=== PATIENT | female | born 1950 | race African-American/Black ===

== ENCOUNTER 2022-06-07 08:35 | Outpatient (REF) | payer OTHER, SELFPAY ==
[2022-06-07 09:24] LABS: Hemoglobin 13.6 g/dl (12.0-16.0); Mean Corpuscular Volume 79.4 fL (80.0-98.0); Mean Platelet Volume 11.1 fL (9.4-12.3); Platelet Count 239 X10*3/uL (160-400); Red Blood Count 5.04 X10*6/uL (4.20-5.50); Red Cell Distribution Width 14.9 % (11.0-16.0); White Blood Count 8.8 X10*3/uL (4.8-10.8)
[2022-06-07 09:34] LABS: Estimated Average Glucose 151 mg/dL; Hemoglobin A1c % 6.9 %
[2022-06-07 09:56] LABS: Alanine Aminotransferase 31 U/L (0-31); Albumin Level 4.7 g/dL (3.5-5.0); Alkaline Phosphatase 113 U/L (39-117); Anion Gap 17 (12-20); Aspartate Amino Transferase 21 U/L (5-31); Bilirubin Total 0.8 mg/dL (0.0-1.0); Blood Urea Nitrogen 12 mg/dL (9-16); Carbon Dioxide 25 mmol/L (22-29); Chloride 105 mmol/L (96-108); Cholesterol 309 mg/dL; Estimated Glomerular Filt Rate > 60; Glucose Fasting 176 mg/dL (60-99); HDL Cholesterol 46 mg/dL; LDL Cholesterol Calculated 230 mg/dl; Potassium 4.1 mmol/L (3.3-5.1); Sodium 143 mmol/L (135-145); Total Protein 7.7 g/dL (6.5-8.0); Triglycerides 167 mg/dL
[2022-06-07 09:57] LABS: Creatinine Urine 187.85 mg/dL; Microalbum/Creatinine Ratio Ur 101.1 ug/mg cr
[2022-06-07 10:07] LABS: TSH reflex Free T4 1.27 uIU/mL (0.32-4.0)
== END 2022-06-07 08:36 | disposition home or self-care (01) ==
LOC: HO.LAB 08:35
PROVIDERS: PCP Physician Assistant; Visit Provider Physician Assistant
DX: E78.2 Mixed hyperlipidemia (principal); I10 Essential (primary) hypertension; E11.65 Type 2 diabetes mellitus with hyperglycemia
CPT/HCPCS: 36415; 80053; 80061; 82043; 83036; 84443; 85027

== ENCOUNTER 2023-01-01 09:41 | Outpatient (REF) | payer OTHER, SELFPAY ==
--- NOTE | ~2023-01-01 | XR_ITS ---
EXAMINATION: XR HAND, RIGHT CLINICAL INFORMATION: Pain COMPARISON: None available. TECHNIQUE: Three views of the right hand. FINDINGS: There is persistent flexion of the fourth proximal interphalangeal joint across images, recommend correlation with physical exam. Mild degenerative changes of the proximal and distal interphalangeal joints and moderate degenerative changes of the radial ulnar joint with loss of joint space. No acute fracture or dislocation. Soft tissues are unremarkable. XR/XR hand RT min 3V IMPRESSION: 1. There is persistent flexion of the fourth proximal interphalangeal joint across images, recommend correlation with physical exam. 2. Mild degenerative changes of the hand and moderate degenerative changes of the wrist.
== END 2023-01-01 09:42 | disposition home or self-care (01) ==
LOC: HO.HOSX 09:41
PROVIDERS: Visit Provider Physician Assistant
DX: M72.0 Palmar fascial fibromatosis [Dupuytren] (principal)
CPT/HCPCS: 73130; 99202

== ENCOUNTER → 2023-01-29 12:28 | Outpatient (BNVA) | payer OTHER, SELFPAY | PROVIDERS: PCP Physician Assistant; Visit Provider Orthopaedic Surgery | DX: M72.0 Palmar fascial fibromatosis [Dupuytren] (principal); M25.641 Stiffness of right hand, not elsewhere classified; M79.641 Pain in right hand; M79.89 Other specified soft tissue disorders; E11.65 Type 2 diabetes mellitus with hyperglycemia | CPT/HCPCS: 99202 ==

== ENCOUNTER 2023-02-21 14:19 | Outpatient (REF) | payer OTHER, SELFPAY ==
--- NOTE | ~2023-02-21 | US_ITS ---
EXAMINATION: ULTRASOUND ARTERIAL DUPLEX UPPER EXTREMITY, RIGHT CLINICAL INFORMATION: 72-year-old female with other specified soft tissue disorders. COMPARISON: None TECHNIQUE: Grayscale, color and spectral Doppler imaging was obtained of the deep arterial system of the right upper extremity. FINDINGS: Low right subclavian, axillary and brachial arteries are all patent and demonstrate normal triphasic waveforms and normal velocities. The radial and ulnar arteries are patent although both demonstrate abnormal monophasic waveforms and velocities within the radial artery are significantly decreased at approximately 28 cm/s. There are a few abnormal appearing and mildly enlarged lymph nodes in the supraclavicular and infraclavicular region, the largest measures approximately 1.4 cm in transverse dimension, nonspecific. US/US arterial duplex UE RT IMPRESSION: 1. Patent deep arterial system of the right upper extremity. 2. Monophasic waveforms of the radial and ulnar arteries with decreased velocities of the radial artery suggest underlying vascular disease. 3. Abnormal appearing and mildly enlarged lymph nodes in the supraclavicular and infraclavicular region. These findings are nonspecific but may be reactive in nature. Clinical correlation recommended. Follow-up imaging can be obtained as clinically indicated.
== END 2023-02-21 14:20 | disposition home or self-care (01) ==
LOC: HO.US 14:19
PROVIDERS: PCP Physician Assistant; Visit Provider Orthopaedic Surgery
DX: M79.89 Other specified soft tissue disorders (principal); R59.0 Localized enlarged lymph nodes
CPT/HCPCS: 93931

== ENCOUNTER 2023-02-28 11:07 | Outpatient (REF) | payer OTHER, SELFPAY ==
[2023-02-28 11:57] LABS: Hemoglobin 13.4 g/dl (12.0-16.0); Mean Corpuscular HGB Conc 32.7 g/dl (31.0-35.0); Mean Corpuscular Hemoglobin 25.5 pg (27.0-33.0); Mean Corpuscular Volume 77.9 fL (80.0-98.0); Mean Platelet Volume 10.2 fL (9.4-12.3); Platelet Count 287 X10*3/uL (160-400); Red Blood Count 5.26 X10*6/uL (4.20-5.50); Red Cell Distribution Width 15.6 % (11.0-16.0); White Blood Count 9.1 X10*3/uL (4.8-10.8)
[2023-02-28 12:08] LABS: Creatinine Urine 102.38 mg/dL
[2023-02-28 12:09] LABS: Alanine Aminotransferase 18 U/L (0-31); Albumin Level 4.3 g/dL (3.5-5.0); Alkaline Phosphatase 99 U/L (39-117); Anion Gap 10 (12-20); Aspartate Amino Transferase 16 U/L (5-31); Bilirubin Total 0.8 mg/dL (0.0-1.0); Blood Urea Nitrogen 8 mg/dL (9-16); Calcium 9.9 mg/dL (8.4-10.2); Carbon Dioxide 28 mmol/L (22-29); Chloride 109 mmol/L (96-108); Cholesterol 161 mg/dL; Estimated Glomerular Filt Rate > 60; Glucose Fasting 137 mg/dL (60-99); HDL Cholesterol 46 mg/dL; LDL Cholesterol Calculated 91 mg/dl; Potassium 4.3 mmol/L (3.3-5.1); Sodium 143 mmol/L (135-145); Total Protein 7.2 g/dL (6.5-8.0); Triglycerides 121 mg/dL
[2023-02-28 12:27] LABS: Estimated Average Glucose 160 mg/dL; Hemoglobin A1c % 7.2 %
[2023-02-28 12:30] LABS: TSH reflex Free T4 1.06 uIU/mL (0.32-4.0)
== END 2023-02-28 11:08 | disposition home or self-care (01) ==
LOC: HO.LAB 11:07
PROVIDERS: PCP Physician Assistant; Visit Provider Physician Assistant
DX: I10 Essential (primary) hypertension (principal); E11.65 Type 2 diabetes mellitus with hyperglycemia; E78.2 Mixed hyperlipidemia
CPT/HCPCS: 36415; 80053; 80061; 82043; 83036; 84443; 85027

== ENCOUNTER 2023-03-05 11:25 | Outpatient (REF) | payer OTHER, SELFPAY ==
--- NOTE | ~2023-03-05 | US_ITS ---
EXAMINATION: US VENOUS WITH DOPPLER UPPER EXTREMITY, RIGHT CLINICAL INFORMATION: DVT, soft tissue disorder. COMPARISON: None available. TECHNIQUE: Ultrasound of the upper extremity is performed using compression sonography and color and pulse Doppler flow with assessment of augmentation of flow. There is also imaging and Doppler assessment of the jugular and subclavian veins. Spectral analysis with color-flow imaging is performed. FINDINGS: Respiratory variation, normal compression, and augmented flow are noted throughout the upper extremity including the axillary, brachial, cubital, and radial and ulnar veins. There is normal flow in the internal jugular and subclavian veins. There is no visible deep or superficial thrombophlebitis. If the patient's symptoms progress, a followup ultrasound in 5 -7 days might be of value to exclude proximal propagation from a nonvisualized distal arm vein. Multiple lymph nodes are seen in the right lower neck the largest measuring 1.5 x 1.2 x 1.5 cm. The lymph nodes appear pathologic without fatty delvin. US/US venous duplex UE RT IMPRESSION: 1. No DVT demonstrated in the right upper extremity. 2. Abnormal lymph nodes right lower neck. Consider biopsy or MRI.
== END 2023-03-05 11:26 | disposition home or self-care (01) ==
LOC: HO.US 11:25
PROVIDERS: PCP Physician Assistant; Visit Provider Physician Assistant
DX: M79.89 Other specified soft tissue disorders (principal)
CPT/HCPCS: 93971

== ENCOUNTER → 2023-03-19 15:40 | Outpatient (BNV) | payer MEDICARE, OTHER, SELFPAY | PROVIDERS: PCP Physician Assistant; Visit Provider Internal Medicine | DX: R59.0 Localized enlarged lymph nodes (principal) | CPT/HCPCS: 99204; 99213; 99214; 99215; G2211 ==

== ENCOUNTER 2023-03-21 13:37 | Outpatient (REF) | payer OTHER, SELFPAY ==
--- NOTE | ~2023-03-21 | CT_ITS ---
EXAM: Contrast-enhanced CT scan of the chest, abdomen, and pelvis. INDICATION: Swelling of neck and right arm. Cervical lymphadenopathy. COMPARISON: Right upper extremity DVT study 03/05/2023 TECHNIQUE: Multidetector helical imaging of the chest, abdomen, and pelvis was obtained from the thoracic inlet through the pubic symphysis following administration of 85 cc of Omnipaque 350 IV contrast. Coronal and sagittal reformatted images that were obtained were also reviewed. This CT examination was performed using dose optimization techniques as appropriate, variously including the following: *Automated exposure control *Adjustment of mA and/or kV according to patient size (this includes techniques or standardized protocols for targeted exams where dose is matched to indication/reason for exam; i.e. extremities or head) *Use of iterative reconstruction technique DLP: 419 mGy-cm FINDINGS: CHEST: Central airways are patent. Lungs are well aerated. There is minimal dependent atelectasis. No lobar consolidation. No pleural effusion or pneumothorax. No suspicious pulmonary nodules. The heart is normal in size. There is no pericardial effusion. No significant coronary artery calcifications. Normal caliber thoracic aorta. No gross mediastinal or hilar lymphadenopathy. Multinodular thyroid gland. There are several enlarged right axillary, the largest measuring approximately 2.5 cm. Cannot exclude an approximately 1.6 cm right breast mass (image 22/57, series 3). A few enlarged right supraclavicular lymph nodes are also noted. ABDOMEN/PELVIS: The liver is normal in size. The gallbladder pancreas, spleen and adrenal glands are unremarkable. A few small anterior splenules are noted. Symmetrically enhancing kidneys without hydronephrosis. Subcentimeter hypodense lesion of the inferior pole of the left kidney is too small to accurately characterize. Normal caliber loops of small and large bowel. Moderate colonic diverticulosis. Normal appendix. Normal caliber abdominal aorta. No gross retroperitoneal lymphadenopathy. The bladder is relatively decompressed and therefore not accurately evaluated, however, no gross bladder abnormality is identified. The uterus is surgically absent. No gross free pelvic fluid. 4.3 cm left adnexal cystic lesion. OSSEOUS STRUCTURES Mild to moderate degenerative changes of the spine. CT/CT abdomen pelvis w IV con IMPRESSION: 1. Right axillary and right supraclavicular lymphadenopathy. Cannot exclude an approximately 1.6 cm right breast mass. Further evaluation with dedicated breast imaging is recommended. Biopsy of right axillary lymph nodes likely warranted. 2. Multinodular thyroid gland. 3. Colonic diverticulosis. 4. 4.3 cm left adnexal cystic lesion. This can be further evaluated with dedicated pelvic ultrasound
[2023-03-21] MEDS: Barium Sulfate Oral (Vanilla) 450 ML ORAL.SUSP 900 ML PO (16:37)
[2023-03-21] MEDS: iohexoL 350 MG/ML 100 ML INFUS..BTL IV (16:38)
== END 2023-03-21 13:38 | disposition home or self-care (01) ==
LOC: HO.CT 13:37
PROVIDERS: Visit Provider Internal Medicine
DX: R59.0 Localized enlarged lymph nodes (principal)
CPT/HCPCS: 71260; 74177; Q9967

== ENCOUNTER 2023-04-15 07:32 | Outpatient (REF) | payer OTHER, SELFPAY ==
--- NOTE | ~2023-04-15 | MM_ITS ---
EXAMINATION: MM DIAGNOSTIC DIGITAL BREAST TOMOSYNTHESIS, BILATERAL AND RIGHT BREAST ULTRASOUND CLINICAL INFORMATION: Right axillary lump The lifetime risk of breast cancer based on the Tyrer-Cuzick Model is 2.9%. COMPARISON: Mammography: This study is compared with the most recent previous mammogram from 2019 as well as examinations from 2018 and 2016. TECHNIQUE: Digital breast tomosynthesis is performed in both the craniocaudal and mediolateral oblique views along with computer-aided detection (CAD). Synthesized 2D images are generated from the tomosynthesis. Right breast CC and MLO spot compression of the superior aspect of right breast and right axilla. FINDINGS: MAMMOGRAM: There are scattered areas of fibroglandular density (ACR BI-RADS breast composition Category b). There is an irregular mass in the upper outer quadrant of the right breast. In the right axilla, there is an enlarged lymph song tissue with poorly defined borders. In the left breast, there are no significant masses, abnormal calcifications, or other abnormalities. ULTRASOUND: Sonography of the 10:00 region of the right breast, 11 cm from the nipple reveals an irregularly marginated, highly suspicious 22 mm hypoechoic mass. Biopsy of this mass is indicated. Sonography of the right axilla reveals at least 2 abnormal lymph nodes. These lymph nodes are markedly hypoechoic. In addition, the 2 areas of abnormal lymphoid tissue likely represent matted lymph nodes. The largest mass of abnormal lymphoid tissue as well as superficially located and measures 28 mm in greatest dimension. Ultrasound-guided biopsy of the most accessible abnormal lymph node is advised. Results are provided to the patient at time of visit by the technologist. MM/MM tomosynthesis diagnostic BI IMPRESSION: Highly suspicious 22 mm right breast mass in the 10:00 region. Ultrasound-guided biopsy is indicated. Highly suspicious, abnormal, matted lymph nodes in the right axilla for which ultrasound-guided biopsy is advised. No mammographic signs of malignancy left breast. ASSESSMENT: BI-RADS BI-RADS 5 - Highly suggestive of malignancy RECOMMENDATION: Biopsy recommended This patient's information was entered into a reminder system with a target due date for their next mammogram.
== END 2023-04-15 07:33 | disposition home or self-care (01) ==
LOC: HO.MAMMO 07:32
PROVIDERS: PCP Physician Assistant; Visit Provider Internal Medicine
DX: N63.31 Unspecified lump in axillary tail of the right breast (principal); M79.89 Other specified soft tissue disorders
CPT/HCPCS: 76642; 77062; 77066

== ENCOUNTER → 2023-04-15 08:00 | Outpatient (BNV) | payer OTHER, SELFPAY | PROVIDERS: PCP Physician Assistant; Visit Provider Radiology Diagnostic Radiology | DX: C50.411 Malignant neoplasm of upper-outer quadrant of right female breast (principal) | CPT/HCPCS: 76642; 77062; 77066; G0279 ==

== ENCOUNTER 2023-04-17 09:21 | Outpatient (AMB) | payer OTHER, SELFPAY ==
--- NOTE | 2023-04-17 11:24 | MHC.OFFVIS ---
Intake Vital Signs 04/17/23 11:24 Height 5 ft 4 in Weight 18 lb BMI 3.1 Intake Visit Reasons: ov- us Dupp R UE Intake Note: Daniella 72 yr old female presents today to discuss further treatment/surgery for her partial Dupuytren's fasciectomy and right hand stiffness. States her last A1C was 6.9. Patient states her ROM has is better. Patient has also been seen with her PCP who had patient have a mammogram. Results pending. Allergies No Known Allergies Allergy (Verified 04/17/23 11:28) HPI ov- us Dupp R UE HPI Details Daniella is a 72 year old right hand dominant woman who presents for a follow-up of her right hand stiffness and RUE extremity. She continues to have stiffness and pain in her right ring and small fingers, mostly from lack of use. She has not been attending OT hand therapy as she says it hurts too much . She has been trying to do some ROM exercises at home. She has had her RUE ultrasounds performed and is scheduled to have a mammogram & be seen by vascular on 04/18/23 at 8:30. She now has cervical lymphadenopathy on her right side. She has spoken to her PCP concerning this. [facility] Medical History Diabetes Hypertension Surgical History No pertinent past surgical history Family History Father No problems noted. Mother Cervical cancer Family/Other Mental health disorder Social History Household Members: Children Housing: House Alcohol intake: never Patient Tobacco Use Status: Never used Tobacco e-Cigarette/Vaping Use: Never Used Second Hand Smoke Exposure: No service: No Current occupational status: retired Current occupation: right handed Cognitive needs: No Hearing needs: No Vision needs: Yes Physical Exam Vital Signs: BMI result Body Mass Index 3.1 Extrem Other: Evaluation of Right Upper Extremity: The patient is alert, oriented, and in no acute distress Neuro: Median, Ulnar, Radial nerves motor and sensory grossly intact and sensation is normal to the tips of all digits Vascular: Cap refill brisk ROM: She can bring her index and middle fingers into full extension She could fully extend ring and small fingers at the MCP joint She has an ~70 degree flexion contracture of the ring finger PIP joint, I cannot passively bring this into extension She now has an ~50 degree flexion contracture of the small finger PIP joint. When I try to passively bring this into extension sh would pull her hand away saying it is too painful I do not feel a palpable Dupuytrens cord that could be causing these contractures at this point Ultrasound reports: US/US arterial duplex UE RT IMPRESSION: 1. Patent deep arterial system of the right upper extremity. 2. Monophasic waveforms of the radial and ulnar arteries with decreased velocities of the radial artery suggest underlying vascular disease. 3. Abnormal appearing and mildly enlarged lymph nodes in the supraclavicular and infraclavicular region. These findings are nonspecific but may be reactive in nature. Clinical correlation recommended. Follow-up imaging can be obtained as clinically indicated. Dictated By:Jayjay Gonsalez MD 02/21/23 US/US venous duplex UE RT IMPRESSION: 1. No DVT demonstrated in the right upper extremity. 2. Abnormal lymph nodes right side of her neck. Consider biopsy or MRI. Dictated By:Dru Saldivar MD 03/15/23 Assessment & Plan Assessment & Plan (1) Dupuytren's contracture of right hand: Comment: Right ring finger. Code(s): M72.0 - Palmar fascial fibromatosis [Dupuytren] (2) DMII (diabetes mellitus, type 2): Code(s): E11.9 - Type 2 diabetes mellitus without complications Qualifiers: Diabetes mellitus complication status: with hyperglycemia Diabetes mellitus long-term insulin use: without long-term use Qualified Code(s): E11.65 - Type 2 diabetes mellitus with hyperglycemia (3) Swelling of right upper extremity: Code(s): M79.89 - Other specified soft tissue disorders (4) Stiffness of finger joint of right hand: Code(s): M25.641 - Stiffness of right hand, not elsewhere classified (5) Right hand pain: Code(s): M79.641 - Pain in right hand Plan Assessment & Plan: 1. Right ring finger PIP flexion contracture Of the PIP joint, measuring ~70 degrees It is not passively reducible and is limited by pain Etiology unclear. No known injury. This is unlikely to be Dupuytrens disease, as Duuytrens is not generally painful She has no visible locking or catching & no tenderness over the a1 audrey 2. Right small finger PIP flexion contracture Measuring ~50 degrees at the PIP joint She has not attended OT hand therapy as she found it too painful She will work on ROM exercises at home There is no palpable Dupuytrens cord, and I think these contractures are likely not related to Dupuytrens disease I think this is not her most important issue right now. It looks like there is a significant workup being done for her right-sided lymphadenopathy and right upper extremity swelling. We will give her time for this workup, and will see her again in 3 months to see how she is doing 4. Right upper extremity swelling Generalized swelling extending from her upper arm into her fingers Please see the dimension of measurements in the PE Etiology unclear. She has completed her duplex doppler US of her upper extremities with no evidence of DVT She is following with her PCP concerning this, and has a Mammogram ordered and a referral to vascular Scribed for Lu Molina MD by Jimmy Blanco, medical office clerk, on 04/17/23 art 11:50 AM, EST. Coding Level of Care Code Est Pt Level 3 (46865) Diagnoses Dupuytren's contracture of right hand M72.0 DMII (diabetes mellitus, type 2) E11.65 Diabetes mellitus complication status: with hyperglycemia Diabetes mellitus supervisor intermediates insulin use: without supervisor intermediates use Swelling of right upper extremity M79.89 Stiffness of finger joint of right hand M25.641 Right hand pain M79.641
== END 2023-04-17 12:48 | disposition home or self-care (01) ==
PROVIDERS: Visit Provider Orthopaedic Surgery
DX: M72.0 Palmar fascial fibromatosis [Dupuytren] (principal); M79.89 Other specified soft tissue disorders; M25.641 Stiffness of right hand, not elsewhere classified; M79.641 Pain in right hand
CPT/HCPCS: 99213

== ENCOUNTER → 2023-04-17 09:21 | Outpatient (BNVA) | payer OTHER, SELFPAY | PROVIDERS: Visit Provider Orthopaedic Surgery | DX: M72.0 Palmar fascial fibromatosis [Dupuytren] (principal); M79.89 Other specified soft tissue disorders; M25.641 Stiffness of right hand, not elsewhere classified; M79.641 Pain in right hand; E11.65 Type 2 diabetes mellitus with hyperglycemia | CPT/HCPCS: 99212 ==

== ENCOUNTER 2023-04-18 07:45 | Outpatient (AMB) | payer OTHER, SELFPAY ==
--- NOTE | 2023-04-18 08:11 | A.OFFVIS_ITS ---
Intake Vital Signs 04/18/23 08:15 Height 5 ft 4 in Weight 158 lb BMI 27.1 BP 120/60 Blood Pressure Location Lt brachial Position Sitting Pulse 70 Intake Visit Reasons: US guided Bx RT mass 10 o'clock and axilla Intake Note: This patient presents for a consultation for Ultrasound guided biopsy right breast mass at 10 o'clock and axilla. Patient c/o; occasional left breast pain. 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 She had been seen recently by Dr. Kaufman because of axillary lymphadenopathy and cervical lymphadenopathy seen on a CT scan. She was therefore sent for diagnostic mammogram and ultrasound of the breast and there was note of a hypoechoic mass on the right breast on the upper outer quadrant. Ultrasound biopsy had therefore been recommended. There was also note of enlarged lymph node on the right axilla. The patient says that she denies any palpable masses. Her menarche was at the age of 13. Her 1st was age of 26. She had 2 pregnancies. She had her menopause in her 50s. She says does not recall of any breast cancer in her family. [facility] Medical History Axillary lymphadenopathy Breast mass, right Diabetes Hypertension Surgical History No pertinent past surgical history Family History Father No problems noted. Mother Cervical cancer Family/Other Mental health disorder Social History Household Members: Children Housing: House Alcohol intake: never Patient Tobacco Use Status: Never used Tobacco e-Cigarette/Vaping Use: Never Used Second Hand Smoke Exposure: No service: No Current occupational status: retired Current occupation: right handed Cognitive needs: No Hearing needs: No Vision needs: Yes Female Reproductive History Menstrual Age of Menarche: 13 Total pregnancies: 2 Review of Systems Const Denies chills and Denies fever(s) Card Denies chest pain, Denies dyspnea and Denies dyspnea on exertion Resp Denies cough, Denies dyspnea and Denies dyspnea on exertion GI Denies hematochezia and Denies change in bowel habits Denies hematuria Musc Denies back pain and Denies limited range of motion Neuro Denies focal weakness and Denies convulsions Psych Denies depression and Denies mood swings Physical Exam Vital Signs: Last Vital Signs Pulse 70 04/18/23 08:15 BP 120/60 04/18/23 08:15 BMI result Body Mass Index 27.1 Const General: comfortable and no acute distress Orientation/consciousness: patient oriented x3 Neck Neck: Yes no lymphadenopathy Chest Other: Vague mass on the right breast, upper outer quadrant, may be about 2 cm, not really well-defined, palpable right axillary lymph node, about 1 .5 cm, also enlarged right neck lymph node about 1.5 cm No palpable masses on the left breast Resp Auscultation: clear to auscultation bilaterally Cardio Rhythm: regular rhythm GI Palpation (GI): Soft to palpation, nontender and no guarding Neuro General: patient oriented x3 Assessment & Plan Assessment & Plan (1) Breast mass, right: Code(s): N63.10 - Unspecified lump in the right breast, unspecified quadrant Plan: She has a mass seen on the ultrasound on the breast at the upper outer quadrant. This is vaguely palpable. The official report for the imaging studies are not out yet. However, she was sent for ultrasound guided biopsy. I explained to her the technique of this procedure. I will see her again in the office to discuss the path report She also has this palpable right axillary lymph node as well as a right supraclavicular lymph node. I have ordered for these 2 be biopsied as well. Orders: Orders US breast ndl core biopsy RT 04/17/23 N63.10 - Unspecified lump in the right breast, unspecified quadrant US biopsy lymph node 04/23/23 R59.0 - Localized enlarged lymph nodes Coding Level of Care Code New Pt Level 4 (72921) Diagnoses Breast mass, right N63.10
[2023-04-18 08:15] VITALS: BP 120/60; PULSE 70; BMI 27.1
== END 2023-04-18 08:41 | disposition home or self-care (01) ==
PROVIDERS: PCP Physician Assistant; Visit Provider Surgery
DX: N63.10 Unspecified lump in the right breast, unspecified quadrant (principal)
CPT/HCPCS: 99204; 99214

== ENCOUNTER → 2023-04-18 07:45 | Outpatient (BNVA) | payer OTHER, SELFPAY | PROVIDERS: PCP Physician Assistant; Visit Provider Surgery | DX: N63.11 Unspecified lump in the right breast, upper outer quadrant (principal) | CPT/HCPCS: 99202 ==

== ENCOUNTER 2023-04-23 13:15 | Outpatient (REF) | payer MEDICARE, SELFPAY ==
--- NOTE | ~2023-04-23 | US_ITS ---
Ultrasound-guided biopsy of the lymphadenopathy in the right supra clavicular area INDICATIONS: Multiple enlarged lymph nodes in the right supraclavicular and axillary region with right arm edema After informed and written consent was obtained in official timeout was performed to evaluate prior to the procedure. PROCEDURE: After the skin was prepped and draped in usual fashion overlying the right supraclavicular area 1% lidocaine was used for local anesthetic. Under ultrasound guidance for needle aspirates were obtained utilizing a 25-gauge needle. The specimens were analyzed by the pathology department and felt to be adequate for diagnostic purposes. The patient tolerated procedure well. US/US biopsy lymph node IMPRESSION: Ultrasound-guided biopsy of the supra clavicular adenopathy utilizing a 25-gauge needle.
[2023-04-23] MEDS: Lidocaine HCl 1 % MPF 5 ML VIAL SUBCUT (14:20)
== END 2023-04-23 13:16 | disposition home or self-care (01) ==
LOC: HO.US 13:15
PROVIDERS: Radiology Vascular & Interventional Radiology; PCP Physician Assistant; Visit Provider Internal Medicine
DX: R59.0 Localized enlarged lymph nodes (principal)
CPT/HCPCS: 36415; 38505; 76942; 88172; 88173; 88184; 88185

== ENCOUNTER → 2023-04-23 13:18 | Outpatient (BNV) | payer MEDICARE, SELFPAY | PROVIDERS: PCP Physician Assistant; Visit Provider Radiology Vascular & Interventional Radiology | DX: R59.0 Localized enlarged lymph nodes (principal) | CPT/HCPCS: 38505; 76942 ==

== ENCOUNTER 2023-04-29 13:05 | Outpatient (REF) | payer MEDICARE, SELFPAY ==
--- NOTE | ~2023-04-29 | US_ITS ---
PROCEDURE: ULTRASOUND-GUIDED LYMPH NODE BIOPSY CLINICAL INFORMATION: Right cervical and axillary lymphadenopathy, right breast mass and right arm swelling. COMPARISON: Previous chest CT February 2023, ultrasound-guided lymph node fine-needle aspiration and right breast ultrasound April and March 2023. TECHNIQUE: Procedure and risks and benefits including bleeding and infection were discussed with the patient and informed consent was obtained. The right axilla was prepped and draped in the usual sterile fashion. The skin and soft tissues were anesthetized with 1% lidocaine plain. Using ultrasound guidance and a coaxial system, access to the largest right axillary lymph node was obtained. Eight 18-gauge core biopsies were obtained. Specimens were placed in formalin and flow cytometry solution. FINDINGS: There are enlarged right supraclavicular and axillary lymph nodes. These demonstrate abnormal ultrasound morphology and flow. The largest 2 x 2 x 1.5 cm diffusely hypoechoic right axillary lymph node was targeted for core biopsy. US/US biopsy lymph node IMPRESSION: Ultrasound-guided right axillary lymph node core biopsy.
[2023-04-29] MEDS: Lidocaine HCl 1 % MPF 5 ML VIAL SUBCUT (15:28)
== END 2023-04-29 13:06 | disposition home or self-care (01) ==
LOC: HO.US 13:05
PROVIDERS: PCP Physician Assistant; Visit Provider Internal Medicine
DX: R59.1 Generalized enlarged lymph nodes (principal)
CPT/HCPCS: 38505; 76942; 88305; 88341; 88342; 88360

== ENCOUNTER → 2023-04-29 13:07 | Outpatient (BNV) | payer MEDICARE, SELFPAY | PROVIDERS: PCP Physician Assistant; Visit Provider Radiology Diagnostic Radiology | DX: R59.0 Localized enlarged lymph nodes (principal); N63.10 Unspecified lump in the right breast, unspecified quadrant | CPT/HCPCS: 38505; 76942 ==

== ENCOUNTER 2023-04-30 13:44 | Outpatient (AMB) | payer MEDICARE, SELFPAY ==
[2023-04-30 14:00] VITALS: BP 122/60; PULSE 85; O2SAT 98; BMI 27.2
--- NOTE | 2023-04-30 14:00 | A.OFFPC_ITS ---
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 Required: No Accompanied by: Self / Same As Patient Allergies No Known Allergies Allergy (Verified 04/30/23 14:07) Medication List - Last Reconciled 04/30/23 by Prabhjot Gold PA-C blood pressure monitor (Blood Pressure Kit) As directed magnesium oxide 250 mg PO BEDTIME 90 days melatonin 5 mg PO BEDTIME PRN 30 days metformin ER 500 mg PO BID 90 days rosuvastatin 40 mg PO DAILY Tobacco use date assessed: 02/28/23 Fall risk assessment: No Falls in past year Last assessed Fall Risk: 04/30/23 Dental Screening Dental Screen Date: 04/30/23 Did you have a dental visit in the last 12 months?: Yes Did you have a dental problem in the last 6 months where you did not have access to dental care?: No Was dental information given to patient?: Patient has dentist HPI 2mth f/u HPI Details Patient is a 72-year-old female here today for follow-up visit. Patient has a past medical history significant for type 2 diabetes, hyperlipidemia, hypertension Patient did have a swollen right arm and axillary/cervical lymphadenopathy, was referred to Oncology and underwent lymph node biopsy of the right supraclavicular area on 04/23/2023, FNA cytology was read as positive for ?malignant cells with necrosis.? Not enough tissue to run additional studies. .. Type 2 diabetes:? Patient continues on metformin without side effect.? .. Hyperlipidemia:? Most recent fasting lipid panel showing very elevated total cholesterol and LDL.? Patient has been started on statin and will recheck lipids in 6 months to assure LDL below 100. .. HTN:? Continues manage blood pressure with lifestyle modifications. Was previously on valsartan.? Today's blood pressure in office acceptable and has not been taking blood pressure medication.? Will hold off on continuing blood pressure medication Laboratory Tests 02/28/23 02/28/23 03/19/23 11:21 11:21 16:26 Creatinine 0.78 Fasting Glucose 137 H Hemoglobin A1c % 7.2 Lactate Dehydrogen ase 225 H Carcinoembryonic A g 2.10 PFSH Medical History Axillary lymphadenopathy Breast mass, right Diabetes Hypertension Surgical History No pertinent past surgical history Family History Father No problems noted. Mother Cervical cancer Family/Other Mental health disorder Social History Household Members: Children Housing: House Alcohol intake: never Patient Tobacco Use Status: Never used Tobacco e-Cigarette/Vaping Use: Never Used Second Hand Smoke Exposure: No service: No Current occupational status: retired Current occupation: right handed Cognitive needs: No Hearing needs: No Vision needs: Yes Female Reproductive History Menstrual Age of Menarche: 13 Questionnaire Thrive Questionnaire Date Thrive assessed: 02/28/23 SINTIA-7 AMB Questionnaire SINTIA-7 Date SINTIA - 7 assessed: 02/28/23 Source: Developed by Drs. Bernardo Murphy, Agatha Estevez, Leo Linares and colleagues, with an educational hernandez from [employer]. Review of Systems Const Denies headache(s) Eyes Denies loss of vision ENT Denies vertigo, Denies dizziness, Denies headache(s) and Denies sore throat Card Denies chest pain, Denies leg edema and Denies lightheadedness Resp Denies cough, Denies hemoptysis and Denies wheezing GI Denies abdominal pain, Denies melena, Denies constipation, Denies diarrhea and Denies vomiting Denies urinary frequency, Denies dysuria and Denies urinary urgency Musc Denies arthralgias, Denies joint swelling, Denies numbness and Denies tingling Neuro Denies Abnormal speech present, Denies behavioral changes, Denies vertigo, Denies dizziness, Denies headache(s), Denies loss of vision, Denies memory loss, Denies numbness and Denies tingling Psych Denies anxiety, Denies behavioral changes, Denies depression, Denies memory loss and Denies panic attacks Farhat/Lymph Denies easy bleeding and Denies easy bruising Aller/Immun Denies wheezing Physical exam (Primary Care) Vital Signs: Last Vital Signs Pulse 85 04/30/23 14:00 BP 122/60 04/30/23 14:00 Pulse Ox 98 04/30/23 14:00 BMI result Body Mass Index 27.2 Tobacco/Smoking Status: Tobacco use Status Tobacco use date assessed 02/28/23 04/30/23 14:02 Patient Tobacco Use Status Never used Tobacco 04/30/23 14:02 e-Cigarette/Vaping Use Never Used 04/30/23 14:02 Thrive Assessment: Date of Thrive Assessment Date Thrive assessed 02/28/23 04/30/23 14:02 Const General: healthy appearing, no acute distress, alert and awake Nutritional Appearance: well nourished Orientation/consciousness: oriented to person, oriented to place and oriented to time HENMT Ears: TM's normal bilaterally General nose exam: Normal nasal mucous membranes and turbinates present Eyes Conjunctivae: conjunctivae normal Sclerae: sclerae normal Pupils: Equal, round and reactive pupils present Neck Neck: Yes no lymphadenopathy and Yes no JVD Thyroid: Thyroid normal Carotids: no bruits Resp Effort & Inspection: normal respiratory effort and not tachypneic Auscultation: no crackles, no rales, no rhonchi and no wheezes Cardio Rate: regular rate Rhythm: regular rhythm Heart sounds: no murmurs and normal S1 and S2 GI Palpation (GI): Soft to palpation, nontender, no hepatomegaly and no splenomegaly Auscultation: normal bowel sounds Skin General skin exam: no rashes or lesions noted and dry skin Neuro General: oriented to person, oriented to place and oriented to time Cranial nerves: Yes Equal, round and reactive pupils present Speech: No Abnormal speech present Gait exam (Neuro): Normal gait present Motor exam (neuro): no tremor noted Extrem Right upper extremity: full ROM and edema Left upper extremity: full ROM Elbow/forearm/wrist images: 1. RIGHT UPPER EXTREMITY WITH EDEMA UP TO THE ELBOW. Right lower extremity: full ROM; no edema Left lower extremity: full ROM; no edema Psych Mental Status: mental status grossly normal Speech and movement: Normal speech and movement present Affect: normal affect Attitude: cooperative Thought process: Normal thought process present Assessment and Plan Assessment & Plan (1) Axillary lymphadenopathy: Code(s): R59.0 - Localized enlarged lymph nodes Plan: Most recent lymph node by as he showing positive cancer cells. Likely has breast cancer. Will follow-up with Oncology. (2) HTN (hypertension): Code(s): I10 - Essential (primary) hypertension Qualifiers: Hypertension type: primary hypertension Qualified Code(s): I10 - Essential (primary) hypertension Plan: Blood pressure acceptable today in office currently lifestyle controlled. Goal blood pressure to be below 140/90 (3) DMII (diabetes mellitus, type 2): Code(s): E11.9 - Type 2 diabetes mellitus without complications Qualifiers: Diabetes mellitus snf insulin use: without snf use Diabetes mellitus complication status: with hyperglycemia Qualified Code(s): E11.65 - Type 2 diabetes mellitus with hyperglycemia Plan: Patient's type 2 diabetes suboptimally controlled with A1c above 7.0. Patient continues to take metformin 500 b.i.d.. Was unable to tolerate metformin a 1000 b.i.d.. Will continue working on lifestyle modifications to reduce her high carbohydrate foods. Goal A1c is to be below 7.0 (4) HLD (hyperlipidemia): Code(s): E78.5 - Hyperlipidemia, unspecified Qualifiers: Hyperlipidemia type: mixed hyperlipidemia Qualified Code(s): E78.2 - Mixed hyperlipidemia Plan: Patient most recent fasting lipid panel showing acceptable total cholesterol and LDL. Continues on high-dose statin therapy. Goal LDL to be below 100 Orders: Orders Comprehensive [place]. Panel Fast 3 Months E11.65 - Type 2 diabetes mellitus with hyperglycemia Hemoglobin A1c 3 Months E11.65 - Type 2 diabetes mellitus with hyperglycemia Lipid Panel 3 Months E78.2 - Mixed hyperlipidemia Complete Blood Count no Diff 3 Months E11.65 - Type 2 diabetes mellitus with hyperglycemia Medications: New melatonin 6 mg (2 x 3 mg) PO DAILY 30 days 60 tabs 1RF F51.01 - Primary insomnia Discontinued melatonin Discontinued Reason: Doctor's Order 5 mg PO BEDTIME 30 days PRN 30 tabs 2RF sleep G47.00 - Insomnia, unspecified Coding Level of Care Code Est Pt Level 4 (65724) Diagnoses Axillary lymphadenopathy R59.0 HTN (hypertension) I10 Hypertension type: primary hypertension DMII (diabetes mellitus, type 2) E11.65 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
== END 2023-04-30 14:25 | disposition home or self-care (01) ==
PROVIDERS: PCP Physician Assistant; Visit Provider Physician Assistant
DX: R59.0 Localized enlarged lymph nodes (principal); I10 Essential (primary) hypertension; E11.65 Type 2 diabetes mellitus with hyperglycemia; E78.2 Mixed hyperlipidemia
CPT/HCPCS: 99214

== ENCOUNTER → 2023-05-06 14:54 | Outpatient (REF) | payer MEDICARE, SELFPAY ==
--- NOTE | 2023-05-06 14:57 | CA_ITS ---
Transthoracic Echocardiogram Patient (Last, First, Middle): Daniella Sims, Gender: Female Date of : 1950 Age: 72 Procedure Date: 05/06/2023 Procedure Type: Transthoracic Echocardiogram Location: OP Height: 162.56 cm Weight: 72.58 kg BSA: 1.78 m2 Heart Rate: bpm BP: / 60 mmHg Coach Driver: Referring MD: Marielena Kaufman MD Furrier Shop Supervisor: Jeremy Rodriguez MD Symptoms: C50.919 Malignant neoplasm of female breast, pre chemo Study Quality: Adequate ECG Rhythm: Sinus Conclusions: - 1. Normal LV systolic function with LVEF of 65-70% with impaired relaxation filling pattern 2. Cardiac valvular Dopplers within normal limits 3. Normal RV systolic pressure 4. No gross pericardial effusion Findings Left Ventricle Normal left ventricular size, thickness, and systolic function. The visually estimated ejection fraction is between 65-70%. Spectral Doppler is indicative of an impaired relaxation filling pattern. E/E prime ratio is between 8 and 15 consistent with indeterminate filling pressures. Peak GLS is -18.3%, within normal limits. Right Ventricle Normal right ventricular cavity size and systolic function. Atria Both atria are normal in size. There is lipomatous hypertrophy of the interatrial septum. There is no evidence of interatrial shunt. Aortic Valve Normal aortic valve structure and function. There is no aortic valve stenosis. There is no aortic valve regurgitation. Mitral Valve Normal mitral valve structure and function. There is trace mitral valve regurgitation. There is no mitral valve stenosis. Pulmonic Valve The pulmonic valve is likely normal. Tricuspid Valve Normal tricuspid valve structure. There is trace tricuspid valve regurgitation. The right ventricular systolic pressure is normal. The right ventricular systolic pressure is 24 mmHg. Normal right atrial pressure. There is no evidence of pulmonary hypertension. Great Vessels All visible segments of the aorta are normal in size. The pulmonary artery was not well visualized. There is no dilatation of the ascending aorta measuring 2.60 cm. Venous The inferior vena cava is normal in size and collapses greater than 50% with inspiration. Pericardium/Pleural There is no evidence of pericardial effusion. Prior Study Comparison No prior study available for comparison. Measurements 2D Linear Measurements IVSd: 1.06 0.6-0.9/0.6-1.0 cm LVIDd: 3.67 3.9-5.3/4.2-5.9 cm LVIDd Index: 2.06 2.4-3.2/2.2-3.1 cm/m2 LVIDs: 2.31 2.0-3.6 cm LVPWd: 0.96 0.7-1.1 cm Ao Root: 2.50 2.1-3.5 cm LA Diam: 3.50 2.7-3.8/3.0-4.0 cm LAIDs Index: 1.97 1.5-2.3 cm/m2 LV Mass: 140.28 67-162/88-224 g LV Mass Index: 78.81 43-95/49-115 g/m2 LVOT Diam: 2.00 3.0+(-)1.3 cm Mitral Valve MV Pk E: 0.68 MV PK A: 1.14 MV Decel Time: 171.00 E/A: 0.60 E'Lateral: 8.27 E'Medial: 7.83 E/E' Med: 8.70 E/E' Lat: 8.20 PHT: 50.00 MVA PHT: 4.40 Decel Letcher: 3.98 Aortic Valve AoV Pk Nikolay: 1.39 AoV Mn Nikolay: 0.89 AoV VTI: 0.29 AoV Pk Grad: 8.00 Aov Mn Grad: 4.00 ALLYSSA Cont.VTI: 2.16 LVOT LVOT Pk Nikolay: 0.98 LVOT Mn Nikolay: 0.60 LVOT VTI: 0.20 LVOT Pk Grad: 4.00 LVOT Mn Grad: 2.00 LVOT Diam: 2.00 LVOT Area: 3.14 Diastolic Function MV Pk E: 0.68 MV Pk A: 1.14 E/A: 0.60 E'Medial: 7.83 E/E' Med: 8.70 E' Laterial: 8.27 E/E' Lat: 8.20 Right Ventricle TAPSE (mm): 20.00 TVS' Nikolay: 8.00 Tricuspid Valve TR Pk Nikolay: 2.28 TR Pk Grad: 21.00 RA Press: 3.00 RVSP: 24.00 Great Vessels Aorta Ao Root-2D: 2.50 2.0-3.7 cm Ao Asc: 2.60 2.1-3.4 cm Pulmonary Valve PV Pk Nikolay: 1.03 Peak PV Grad: 4.00 Updated in Other Vendor System with Status of Final Jeremy Rodriguez MD electronically signed on 05/07/2023 12:32:55 PM with status of Final
== END ==
LOC: HO.CARD 14:54
PROVIDERS: PCP Physician Assistant; Visit Provider Internal Medicine
DX: C50.919 Malignant neoplasm of unspecified site of unspecified female breast (principal)
CPT/HCPCS: 93306; 93356

== ENCOUNTER → 2023-05-06 14:57 | Outpatient (BNV) | payer MEDICARE, SELFPAY | PROVIDERS: PCP Physician Assistant; Visit Provider Internal Medicine Cardiovascular Disease | DX: Z01.818 Encounter for other preprocedural examination (principal); C50.919 Malignant neoplasm of unspecified site of unspecified female breast | CPT/HCPCS: 93306 ==

== ENCOUNTER → 2023-05-07 11:07 | Outpatient (REF) | payer MEDICARE, SELFPAY ==
--- NOTE | ~2023-05-07 | NM_ITS ---
EXAMINATION: NM BONE SCAN OF THE WHOLE BODY CLINICAL INFORMATION: Recently diagnosed right-sided breast carcinoma. For staging. COMPARISON: Bilateral diagnostic mammogram and targeted right breast ultrasound done on 04/15/2023 and ultrasound-guided right supraclavicular and right axillary lymph node biopsy done on 04/23/2023 and 04/29/2023 respectively. TECHNIQUE: Multiple gamma scintillation camera images of the whole body were performed 2 hours following the intravenous administration of 26 mCi Tc-99m MDP. The radiotracer was injected through left antecubital superficial vein without complications. FINDINGS: In the head, no suspicious focal lesion. In the thoracic cage and upper extremities, no suspicious focal lesion. In the spine, increased radiotracer activity is present at lower thoracic spine corresponding to large paraspinal pleural like osteophyte formations seen on prior CT of the chest abdomen and pelvis done on 03/21/2023. In the pelvis, no suspicious focal lesion. In the lower extremities, no suspicious focal lesion. No other definite bony abnormalities are noted. The urinary bladder and faint visualization of both kidneys are noted. NM/NM bone scan whole body IMPRESSION: No definite scintigraphic evidence of osseous metastasis.
== END ==
LOC: HO.NUCMED 11:07
PROVIDERS: PCP Physician Assistant; Visit Provider Internal Medicine
DX: C50.919 Malignant neoplasm of unspecified site of unspecified female breast (principal)
CPT/HCPCS: 78306; A9503

== ENCOUNTER 2023-05-08 09:43 | Outpatient (REF) | payer MEDICARE, SELFPAY ==
--- NOTE | ~2023-05-08 | MM_ITS ---
PROCEDURE: US GUIDED BREAST BIOPSY, right breast CLINICAL INFORMATION: Mass in the right breast at the 10:00 axis, 11 cm from the nipple, measuring approximately 1.8 x 1.9 x 1.2 cm, suspicious and recommended for biopsy. There is associated axillary lymphadenopathy. COMPARISON: 04/29/2023, 04/15/2023 ultrasound and mammography. PROCEDURAL DETAILS: The details of the procedure, as well as the risks, benefits, and alternatives to the procedure were explained to the patient in detail and all of her questions were answered, after which written informed consent was obtained. Site and side were confirmed. Prior to the procedure, sonography revealed right breast mass in the a 10:00 axis as detailed above. A time-out was performed, the lesion intended for biopsy was targeted, and the skin of the right breast overlying the mass was then cleaned, prepped and draped in the usual sterile fashion. Using sonographic guidance, sterile technique, and 1% lidocaine without epinephrine for local anesthesia, multiple core biopsies were obtained through the targeted area with a 14G spring loaded Achieve core biopsy device. There was real-time confirmation of appropriate needle passage. Sampling was documented. At the completion of tissue sampling, a single open coil-shaped metallic clip was deposited at the biopsy site. There was no evidence of immediate complication. SPECIMEN: Several appropriate samples were obtained. DIGITAL POST-PROCEDURE MAMMOGRAPHY: Breast density: The tissue is heterogeneously dense which may obscure small masses. BI-RADS version 5, category C. There are no new mammographic findings demonstrated. The postprocedure 2-view direct right digital mammogram reveals accurate and satisfactory positioning of the biopsy clip. The patient tolerated the procedure well and, after assuring adequate hemostasis, was discharged in good condition after reviewing postbiopsy breast care instructions. Final pathology results are pending. MM/MM diagnostic mammo unilat RT IMPRESSION: 1. No immediate complication from ultrasound-guided percutaneous biopsy right breast. 2. Ultrasound was used to localize and guide marker clip placement. 3. The 2-view direct right digital postprocedure mammogram reveals accurate and satisfactory positioning of the biopsy clip. 4. Final pathology results are pending. A separate report with final recommendations will be issued once these results are made available. system with a target due date for their next mammogram.
[2023-05-08] MEDS: Lidocaine HCl 1 % 20 ML VIAL 9 ML SUBCUT (11:23)
[2023-05-08] MEDS: Sodium Bicarbonate 8.4% 50 MEQ/50 ML VIAL SUBCUT (11:24)
== END 2023-05-08 09:44 | disposition home or self-care (01) ==
LOC: HO.MAMMO 09:43
PROVIDERS: PCP Physician Assistant; Visit Provider Surgery
DX: N63.11 Unspecified lump in the right breast, upper outer quadrant (principal); R59.0 Localized enlarged lymph nodes
CPT/HCPCS: 19083; 77062; 77065; 88305; 88341; 88342; 88360; A4648

== ENCOUNTER 2023-05-09 08:59 | Day surgery (SDC) | payer MEDICARE, SELFPAY ==
--- NOTE | ~2023-05-09 | IR_ITS ---
Port-A- Catheter placement INDICATIONS: Port placement for chemotherapy After informed written consent was obtained an official timeout was performed immediately prior to the procedure. I was personally responsible for the administration of moderate sedation services, all requirements were followed, an independent trained observer was utilized. Conscious sedation was initiated at 11:20 AM and discontinued at 12:05 PM. PROCEDURE: Initial ultrasound surveillance of the left size of the neck was performed. The internal and external jugular veins appear widely patent. The skin was prepped and draped in usual fashion overlying the base of the neck as well as the anterior chest wall. Under ultrasound guidance a micropuncture needle was placed from a supraclavicular approach into the left internal jugular vein. 1% Xylocaine was used for local anesthetic. A guidewire was advanced into the right atrium. A 6 Uzbek peel-away sheath was placed. A subcutaneous pocket was then created along the anterior aspect of the chest. A 6 Uzbek catheter was tunneled beneath the skin surface and subsequently through the peel-away sheath into the superior aspect of the right atrium. The port was placed within the subcutaneous pocket and secured with a single stitch. Post placement the port and catheter appeared in good position. The port was accessed with the access needle and blood was easily aspirated. It was then flushed with heparinized saline. The pocket was closed with 3-0 subcutaneous Vicryl sutures as well as 4-0 running absorbable suture material. IR/IR cvc insert tunnel w prt/genetic coordinator IMPRESSION: Port placement via the left internal jugular vein.
--- NOTE | ~2023-05-09 | IR_ITS ---
Port-A- Catheter placement INDICATIONS: Port placement for chemotherapy After informed written consent was obtained an official timeout was performed immediately prior to the procedure. I was personally responsible for the administration of moderate sedation services, all requirements were followed, an independent trained observer was utilized. Conscious sedation was initiated at 11:20 AM and discontinued at 12:05 PM. PROCEDURE: Initial ultrasound surveillance of the left size of the neck was performed. The internal and external jugular veins appear widely patent. The skin was prepped and draped in usual fashion overlying the base of the neck as well as the anterior chest wall. Under ultrasound guidance a micropuncture needle was placed from a supraclavicular approach into the left internal jugular vein. 1% Xylocaine was used for local anesthetic. A guidewire was advanced into the right atrium. A 6 Belarusian peel-away sheath was placed. A subcutaneous pocket was then created along the anterior aspect of the chest. A 6 Belarusian catheter was tunneled beneath the skin surface and subsequently through the peel-away sheath into the superior aspect of the right atrium. The port was placed within the subcutaneous pocket and secured with a single stitch. Post placement the port and catheter appeared in good position. The port was accessed with the access needle and blood was easily aspirated. It was then flushed with heparinized saline. The pocket was closed with 3-0 subcutaneous Vicryl sutures as well as 4-0 running absorbable suture material. IR/IR us guide venous access IMPRESSION: Port placement via the left internal jugular vein.
[2023-05-09 09:26] LABS: Glucose, Whole Blood 177 mg/dL (60-115)
[2023-05-09 09:28] LABS: MANUAL DIFF FLAG NO
[2023-05-09 09:36] LABS: INTERNATIONAL NORM RATIO 1.1 (0.9-1.1); Prothrombin Time 13.6 SEC (11.1-13.3)
[2023-05-09 09:37] LABS: Basophils Absolute Auto 0.1 X10*3/uL (0.0-0.2); Basophils Percent Auto 0.6 % (0-2); Eosinophils Absolute Auto 0.1 X10*3/uL (0.0-0.4); Eosinophils Percent Auto 1.2 % (0-4); Hematocrit 38.4 % (37.0-47.0); Imm Gran Abs Auto 0.03 X10*3/uL (0.00-0.03); Imm Gran Pct Auto 0.4 % (0.0-0.4); Lymphocytes Absolute Auto 2.3 X10*3/uL (1.2-4.9); Lymphocytes Percent Auto 26.9 % (20-40); Mean Corpuscular HGB Conc 33.9 g/dl (31.0-35.0); Mean Corpuscular Hemoglobin 26.1 pg (27.0-33.0); Mean Corpuscular Volume 77.1 fL (80.0-98.0); Mean Platelet Volume 9.6 fL (9.4-12.3); Monocytes Absolute Auto 0.4 X10*3/uL (0.1-1.2); Neutrophils Absolute Auto 5.5 x10*3/uL (2.0-8.3); Neutrophils Percent Auto 65.9 % (45-73); Platelet Count 276 X10*3/uL (160-400); Red Blood Count 4.98 X10*6/uL (4.20-5.50); Red Cell Distribution Width 15.4 % (11.0-16.0); White Blood Count 8.4 X10*3/uL (4.8-10.8)
[2023-05-09 09:38] LABS: Partial Thromboplastin Time 28.6 SEC (26.0-36.4)
[2023-05-09 09:42] VITALS: BMI 27.1
[2023-05-09 09:45] LABS: Anion Gap 13 (12-20); Blood Urea Nitrogen 8 mg/dL (9-16); Carbon Dioxide 27 mmol/L (22-29); Chloride 107 mmol/L (96-108); Creatinine Clr Calc Pharmacy 63.8; Estimated Glomerular Filt Rate > 60; Potassium 3.7 mmol/L (3.3-5.1); Sodium 143 mmol/L (135-145)
[2023-05-09 12:30] VITALS: BP 133/67; PULSE 70; RESP 16; TEMP 36.2; O2SAT 95
[2023-05-09 12:45] VITALS: BP 136/91; PULSE 83; RESP 16; O2SAT 97
[2023-05-09 13:00] VITALS: BP 132/65; PULSE 80; RESP 16; O2SAT 97
[2023-05-09 13:15] VITALS: BP 125/60; PULSE 77; RESP 16; TEMP 36.4; O2SAT 97
== END 2023-05-09 13:29 | disposition home or self-care (01) ==
PROVIDERS: Radiology Vascular & Interventional Radiology; PCP Physician Assistant; Visit Provider Internal Medicine
DX: C50.911 Malignant neoplasm of unspecified site of right female breast (principal); Z17.1 Estrogen receptor negative status [ER-]; C77.3 Secondary and unspecified malignant neoplasm of axilla and upper limb lymph nodes; M79.89 Other specified soft tissue disorders; E11.9 Type 2 diabetes mellitus without complications; I10 Essential (primary) hypertension
CPT/HCPCS: 36415; 36561; 76937; 80051; 82565; 82947; 84520; 85025; 85610; 85730; 99152; 99153; C1769; C1788; J0690; J1642; J2250; J3010

== ENCOUNTER → 2023-05-09 11:30 | Outpatient (BNV) | payer MEDICARE, SELFPAY | PROVIDERS: PCP Physician Assistant; Visit Provider Radiology Vascular & Interventional Radiology | DX: C50.911 Malignant neoplasm of unspecified site of right female breast (principal) | CPT/HCPCS: 36561; 76937 ==

== ENCOUNTER 2023-07-12 10:17 | Emergency (ER) | payer MEDICARE, SELFPAY ==
--- NOTE | ~2023-07-12 | CT_ITS ---
EXAMINATION: CT ANGIOGRAM OF THE CHEST WITH AND WITHOUT CONTRAST (CT PULMONARY ANGIOGRAM FOR PE) CLINICAL INFORMATION: Reason for Exam tachycardia, hx advanced breast cancer COMPARISON: 03/21/2023 TECHNIQUE: Prior to contrast administration, noncontrast localization images were obtained. Subsequently, multidetector volumetric imaging was performed from the thoracic inlet to below the diaphragms following the administration of 65 mL Omnipaque 350 intravenous contrast. No contrast reaction reported Sagittal, coronal, and MIP oblique sagittal reformatted images were obtained on the CT workstation, uploaded to PACS, and reviewed. This CT examination was performed using dose optimization techniques as appropriate, variously including the following: *Automated exposure control *Adjustment of mA and/or kV according to patient size (this includes techniques or standardized protocols for targeted exams where dose is matched to indication/reason for exam; i.e. extremities or head) *Use of iterative reconstruction technique Total exam dose-length product 219 mGy-cm FINDINGS: QUALITY OF STUDY/CONTRAST BOLUS: Satisfactory. PULMONARY ARTERIES: No pulmonary emboli. THORACIC AORTA: No aneurysm. LUNG: No focal consolidation or suspicious pulmonary nodules. PLEURA: No pleural effusion or pneumothorax. MEDIASTINUM: Normal heart size. No pericardial effusion. No hilar or mediastinal lymphadenopathy. No evidence of septal bowing or right heart strain. CORONARY ARTERY CALCIFICATION: None visualized on this study. CHEST WALL/AXILLA: Asymmetric right breast tissue. Interval decrease in right axillary lymphadenopathy. Left chest wall Port-A-Cath with tip at the cavoatrial junction. OSSEOUS STRUCTURES: No destructive bone lesion. UPPER ABDOMEN: Unremarkable. No reflux of contrast into the hepatic veins to suggest elevated right heart pressures. CT/CT angio chest PE protocol IMPRESSION: No evidence of pulmonary embolus. No acute intrathoracic abnormality. VTE: negative
--- NOTE | ~2023-07-12 | US_ITS ---
EXAMINATION: US VENOUS WITH DOPPLER UPPER EXTREMITY, RIGHT CLINICAL INFORMATION: Right upper extremity swelling. COMPARISON: 03/05/2023 TECHNIQUE: Ultrasound of the upper extremity is performed using compression sonography and color and pulse Doppler flow with assessment of augmentation of flow. There is also imaging and Doppler assessment of the jugular and subclavian veins. Spectral analysis with color-flow imaging is performed. FINDINGS: Respiratory variation, normal compression, and augmented flow are noted throughout the upper extremity including the axillary, brachial, and cephalic veins. The radial and ulnar veins are not well visualized. The basilic vein is not visualized. There is normal flow in the internal jugular and subclavian veins. There is no visible deep or superficial thrombophlebitis. If the patient's symptoms progress, a followup ultrasound in 5 -7 days might be of value to exclude proximal propagation from a nonvisualized distal arm vein. US/US venous duplex UE RT IMPRESSION: Limited study. No DVT demonstrated in the visualized right upper extremity.
--- NOTE | 2023-07-12 10:21 | ECG_ITS ---
Test Reason : tachycardia Blood Pressure : / mmHG Vent. Rate : 145 BPM Atrial Rate : 145 BPM P-R Int : 138 ms QRS Dur : 062 ms QT Int : 266 ms P-R-T Axes : 037 036 011 degrees QTc Int : 413 ms Sinus tachycardia Nonspecific ST and T wave abnormality Abnormal ECG When compared with ECG of 12-JUL-2023 09:06, No significant change was found Referred By: Generic ED Physician Electronically Signed By:GUADALUPE CONWAY MD
--- NOTE | 2023-07-12 10:32 | ED.GENADULT ---
HPI - General Adult General Chief complaint: Arrhythmia/Palpitations Stated complaint: abnormal heart rate Time Seen by Provider: 07/12/23 10:31 Source: patient and old records reviewed Mode of arrival: ambulatory Limitations: no limitations History of Present Illness HPI narrative: 73 yo female with history of advanced poorly differentiated breast cancer diagnosed April 2023 currently on neoadjuvent chemotherapy/immunotherapy with Dr. Kaufman, DM2, HLD, restless leg syndrome, HTN who presents to the ER from Oncology office for evaluation of asymptomatic sinus tachycardia. Patient presented for cycle 3 of treatment today and she was found to have a HR in the 130s. EKG w/ sinus tachycardia and possible anterior infarct per Dr. Kaufman. Patient was sent to the ER for further evaluation. She arrives w/ HR 140s BP 110/66. She denies any chest pain, SOB, dizziness, fatigue, weakness, N/V/D, and reports she has been feeling well, tolerating chemo well. She states her only complaint is bilateral ankle pains, R>L with no injury. No leg swelling or calf pain. She has chronic RUE swelling MD complaint: elevated HR Onset (ago): unknown Relieving factors: none Exacerbating factors: none Associated symptoms: denies other symptoms Treatments prior to arrival: none Related Data Previous Rx's Medication Instructions Recorded blood pressure monitor (Blood #1 ea 06/07/22 Pressure Kit) rosuvastatin 40 mg tablet 40 mg PO DAILY #90 tabs 12/24/22 metformin 500 mg tablet,extended 500 mg PO BID 90 days #180 tabs 03/05/23 release 24 hr ondansetron 8 mg disintegrating 8 mg PO Q8H PRN Nausea #30 tabs 05/16/23 tablet dexamethasone 4 mg tablet 4 mg PO BID #60 tabs 05/28/23 Allergies Allergy/AdvReac Type Severity Reaction Status Date / Time No Known Allergies Allergy Verified 05/09/23 09:41 Review of Systems Review of Systems: Yes all other systems are reviewed and are negative [facility] Past Medical History Medical History Axillary lymphadenopathy Breast mass, right Diabetes Hypertension Surgical History No pertinent past surgical history Family History Family History Father No problems noted. Mother Cervical cancer Family/Other Mental health disorder Social History Social History Household Members: Children Housing: House Alcohol intake: never Patient Tobacco Use Status: Never used Tobacco e-Cigarette/Vaping Use: Never Used Second Hand Smoke Exposure: No Use of substances other than those prescribed or required for medical reasons: No Have you been hit, kicked, punched, or otherwise hurt by someone within the past year? If so, by whom?: No Do you feel safe in your current relationship?: No Current Relationship Do you have thoughts of harming others: None Do you have a plan to hurt others: No Plan Do you have the means to hurt others: No Recently lost weight without trying: No service: No Current occupational status: retired Current occupation: right handed Cognitive needs: No Hearing needs: No Vision needs: Yes Physical Exam ED Vital Signs: Vital Signs - 24 hr 07/12/23 10:37 07/12/23 12:56 07/12/23 14:17 Temperature 98.3 F Pulse Rate 141 H 99 109 H Respiratory Rate 25 H 18 19 Blood Pressure 116/66 121/73 111/63 Pulse Oximetry 100 99 99 Oxygen Delivery Method Room Air Room Air Room Air BMI result Body Mass Index 27.7 Appearance: Alert. Oriented X3. No acute distress. Head: normocephalic, atraumatic. Eyes: Pupils equal, round and reactive to light. ENT: Pharynx normal. No tonsillar swelling or exudate. Neck: Normal inspection. Neck supple. CVS: Tachycardic, HR 140s, regular rhythm. Pulses normal. Respiratory: No respiratory distress. Breath sounds normal. Abdomen: Soft and nontender. +BS x4 Skin: Skin warm and dry. Normal skin color. Normal skin turgor. No rashes. Extremities: No lower extremity edema. No joint swelling. Right upper extremity with diffuse edema, 2+ radial pulse. Neuro/psych: Oriented X 3. No motor deficit. No sensory deficit. CN II-XII intact. Normal speech and cognition. Course Reevaluation(s) Reevaluation #1: patients HR imtproved w/ IVF. trop negative. DVT and PE negative additional IVF ordered - HR 100-120. asymptomatic Time: 14:22 Medications Administered Discontinued Medications Generic Name Dose Route Start Last Admin Trade Name Ruiz PRN Reason Stop Dose Admin Sodium Chloride 1,000 mls @ 999 mls/hr 07/12/23 10:45 07/12/23 15:26 Ns IVCONT 07/12/23 11:45 Infused .Q1H1M KWESI Infusion Sodium Chloride 1,000 mls @ 999 mls/hr 07/12/23 14:15 07/12/23 15:27 Ns IVCONT 07/12/23 15:15 Infused .Q1H1M KWESI Infusion Iohexol 65 ml 07/12/23 11:47 07/12/23 11:47 Iohexol 350 Mg/Ml 100 Ml Infus..Btl IV 07/12/23 11:48 65 ml ONCE ONE Administration Potassium Chloride 40 meq 07/12/23 11:29 07/12/23 12:56 Potassium Chloride Er 20 Meq Tab.Er.Prt PO 07/12/23 11:30 40 meq ONCE ONE Administration Medical Decision Making Medical Decision Making MDM Narrative: 73 yo female with history of advanced poorly differentiated breast cancer diagnosed April 2023 currently on neoadjuvent chemotherapy/immunotherapy with Dr. Kaufman, DM2, HLD, restless leg syndrome, HTN who presents to the ER from Oncology office for evaluation of asymptomatic sinus tachycardia. EKG w/ sinus tach 140s. troponin negative. no SOB or chest pain. family reports decreased PO intake and hydration at home. IVF ordered w/ improvement in HR CTA negative for PE and UE Doppler negative for DVT. at this time HR much improved after 2 L IVF. comfortable w/ discharge home. f/u with cardiology and monitoring pulse at home return precautions discussed. Differential Diagnosis Differential Diagnoses: The differential diagnosis associated with the presentation includes pulmonary embolism, hyperthyroidism, dehydration, adverse side effect of chemotherapy, anxiety, pain Admission/Observation Consideration of admission/observation: Escalation of care including admission/observation considered Consult Healthcare Provider Management of the patient was discussed with: Welder Assistant case d/w Dr. Kaufman when she referred the patient to the ER Lab Data [facility] Lab Attestation statement: I reviewed the patient's lab results. 07/12/23 10:55 07/12/23 10:55 Labs: Lab Results 07/12/23 Range/Units 10:55 WBC 7.8 (4.8-10.8) X10*3/uL RBC 4.34 (4.20-5.50) X10*6/uL Hgb 11.6 L (12.0-16.0) g/dl Hct 33.7 L (37.0-47.0) % MCV 77.6 L (80.0-98.0) fL MCH 26.7 L (27.0-33.0) pg MCHC 34.4 (31.0-35.0) g/dl RDW 17.4 H (11.0-16.0) % Plt Count 190 (160-400) X10*3/uL MPV 9.5 (9.4-12.3) fL Immature Gran % (Auto) 1.7 H (0.0-0.4) % Neut % (Auto) 67.4 (45-73) % Lymph % (Auto) 24.5 (20-40) % Traill % (Auto) 5.5 (2-11) % Eos % (Auto) 0.4 (0-4) % Baso % (Auto) 0.5 (0-2) % Lymph # (Auto) 1.9 (1.2-4.9) X10*3/uL Traill # (Auto) 0.4 (0.1-1.2) X10*3/uL Eos # (Auto) 0.0 (0.0-0.4) X10*3/uL Baso # (Auto) 0.0 (0.0-0.2) X10*3/uL Abs Immat Gran (auto) 0.13 H (0.00-0.03) X10*3/uL Absolute Neuts (auto) 5.3 (2.0-8.3) x10*3/uL Absolute Nucleated RBC 0.000 (0.0-0.012) X10*3/uL Nucleated RBC % (auto) 0.0 (0.0-0.2) /100WBC Sodium 139 (135-145) mmol/L Potassium 3.1 L D (3.3-5.1) mmol/L Chloride 105 (96-108) mmol/L Carbon Dioxide 24 (22-29) mmol/L Anion Gap 13 (12-20) BUN 9 (9-16) mg/dL Creatinine 0.61 (0.5-1.4) mg/dL Estim Creat Clear Calc 78.1 Estimated GFR > 60 Random Glucose 230 H (60-115) mg/dL Calcium 9.3 (8.4-10.2) mg/dL Magnesium 1.8 (1.6-2.6) mg/dL Total Bilirubin 0.4 (0.0-1.0) mg/dL Direct Bilirubin 0.1 (0.0-0.5) mg/dL AST 17 (5-31) U/L ALT 40 H (0-31) U/L Alkaline Phosphatase 79 (39-117) U/L Troponin I High Sens < 2.7 (<3.5-17.0) ng/L Total Protein 6.1 L (6.5-8.0) g/dL Albumin 3.6 (3.5-5.0) g/dL TSH 0.55 (0.32-4.0) uIU/mL Independent Interpretation I performed an independent interpretation of an: EKG, Ultrasound and CT Scan Interpretation: EKG w/ sinus tachycardia, HR 145, present P waves and T waves, no ST segment elevations or depressions, normal QTc CTA chest without large PE, agree w/ radiology read RUQ U/S - no GB stones or thickening, agree w/ radiology read Radiology Impression Discussion of test interpretation with radiology: I have reviewed the radiologist's reading. Radiologist Impression: CT/CT angio chest PE protocol IMPRESSION: No evidence of pulmonary embolus. No acute intrathoracic abnormality. Independent Historian Clinical information obtained from an independent historian. History obtained from or confirmed by: Other (adult child at bedside) External Record Review External record reviewed: Office record, Outpatient record, Prior outpatient labs and Prior outpatient radiology Prescription Management I considered prescription management with: Other (betablocker) Chronic Conditions Patient?s care impacted by: Other (advanced breast cancer) Critical Care Time Critical Care Time Critical Care Time: Yes Total Critical Care Time: 32 Attestation: I have personally provided critical care time exclusive of time spent on separately billable procedures. Time includes review of lab data, radiology results, discussion with consultants, and monitoring for potential decompensation. Intervention performed as documented. Discharge Plan Discharge Clinical Impression: Sinus tachycardia Patient Disposition: Home, Self-Care Instructions: Tachycardia (ED) Additional Instructions: Your lab workup today was largely unremarkable. Your potassium was slightly low and it was repleted with pills in the ER Your CT scan did not show any blood clots. Your Ultrasound did not show any blood clot Your heart rate improved with hydration Recommend monitoring your pulse rate at home Recommend following up with Cardiology for further evaluation and treatment If you develop new or worsening symptoms call 911 or come back to the ER for further evaluation. Prescriptions: No Action rosuvastatin 40 mg tablet 40 mg PO DAILY Qty: 90 1RF metformin 500 mg tablet extended release 24 hr 500 mg PO BID 90 Days Qty: 180 1RF ondansetron 8 mg Tablet,Disintegrating 8 mg PO Q8H PRN (Reason: Nausea) Qty: 30 2RF dexamethasone 4 mg Tablet 4 mg PO BID Qty: 60 4RF Rx Instructions: Take 4 mg twice a day, days 2 and 3 of chemotherapy. Repeat every 2 weeks. (DME) blood pressure monitor [Blood Pressure Kit] Kit See Rx Instructions .Route Qty: 1 0RF Rx Instructions: As directed Referrals: [facility] [Provider Group] (sinus tach, PE and DVT negative ) Prabhjot Gold PA-C [Primary Care Provider] -
[2023-07-12 10:37] VITALS: BP 116/66; PULSE 141; RESP 25; TEMP 36.8; O2SAT 100; BMI 27.7
[2023-07-12 11:00] LABS: MANUAL DIFF FLAG NO
[2023-07-12 11:03] LABS: Basophils Percent Auto 0.5 % (0-2); Eosinophils Percent Auto 0.4 % (0-4); Hematocrit 33.7 % (37.0-47.0); Hemoglobin 11.6 g/dl (12.0-16.0); Imm Gran Abs Auto 0.13 X10*3/uL (0.00-0.03); Imm Gran Pct Auto 1.7 % (0.0-0.4); Lymphocytes Absolute Auto 1.9 X10*3/uL (1.2-4.9); Lymphocytes Percent Auto 24.5 % (20-40); Mean Corpuscular HGB Conc 34.4 g/dl (31.0-35.0); Mean Corpuscular Hemoglobin 26.7 pg (27.0-33.0); Mean Corpuscular Volume 77.6 fL (80.0-98.0); Mean Platelet Volume 9.5 fL (9.4-12.3); Monocytes Absolute Auto 0.4 X10*3/uL (0.1-1.2); Monocytes Percent Auto 5.5 % (2-11); Neutrophils Absolute Auto 5.3 x10*3/uL (2.0-8.3); Neutrophils Percent Auto 67.4 % (45-73); Platelet Count 190 X10*3/uL (160-400); Red Blood Count 4.34 X10*6/uL (4.20-5.50); Red Cell Distribution Width 17.4 % (11.0-16.0); White Blood Count 7.8 X10*3/uL (4.8-10.8)
--- OUTSIDE RECORDS SUMMARY | 2023-07-12 11:11 | XMS_ITS | Continuity of Care Document ---
Author Name Unknown Organization [facility] Address [address] [place] [address]- Care Team Providers Care [employer] Worker Name Role Phone Armin HAQUE, Larry Smallwood Primary Care Physician Encounter [facility] Date(s): 06/21/20 - 07/21/20 [facility] [address] [place] [id number] [facility]
[2023-07-12 11:22] LABS: Alanine Aminotransferase 40 U/L (0-31); Albumin Level 3.6 g/dL (3.5-5.0); Alkaline Phosphatase 79 U/L (39-117); Anion Gap 13 (12-20); Aspartate Amino Transferase 17 U/L (5-31); Bilirubin Direct 0.1 mg/dL (0.0-0.5); Bilirubin Total 0.4 mg/dL (0.0-1.0); Blood Urea Nitrogen 9 mg/dL (9-16); Calcium 9.3 mg/dL (8.4-10.2); Carbon Dioxide 24 mmol/L (22-29); Chloride 105 mmol/L (96-108); Creatinine Clr Calc Pharmacy 78.1; Estimated Glomerular Filt Rate > 60; Glucose Random 230 mg/dL (60-115); Magnesium 1.8 mg/dL (1.6-2.6); Potassium 3.1 mmol/L (3.3-5.1); Sodium 139 mmol/L (135-145); Total Protein 6.1 g/dL (6.5-8.0)
[2023-07-12 11:23] LABS: Troponin-I High Sensitivity < 2.7 ng/L (<3.5-17.0)
[2023-07-12] MEDS: 0.9 % Sodium Chloride 1,000 ML 999 ML IVCONT ×2 (11:25→14:21)
[2023-07-12 11:36] LABS: TSH reflex Free T4 0.55 uIU/mL (0.32-4.0)
[2023-07-12] MEDS: iohexoL 350 MG/ML 100 ML INFUS..BTL 65 ML IV (11:47)
[2023-07-12 12:56] VITALS: BP 121/73; PULSE 99; RESP 18; O2SAT 99
[2023-07-12] MEDS: Potassium Chloride ER 20 MEQ TAB.ER.PRT 40 MEQ PO (12:56)
[2023-07-12 14:17] VITALS: BP 111/63; PULSE 109; RESP 19; O2SAT 99
== END 2023-07-12 15:56 | disposition home or self-care (01) ==
PROVIDERS: Physician Assistant; Emergency Provider Emergency Medicine; PCP Physician Assistant
DX: R00.0 Tachycardia, unspecified (principal); R00.2 Palpitations; R60.0 Localized edema; Z79.899 Other long term (current) drug therapy
CPT/HCPCS: 36415; 71275; 80048; 80076; 83735; 84443; 84484; 85025; 93005; 93971; 96360; 96361; 99285; J1642; Q9967

== ENCOUNTER 2023-07-18 16:56 | Outpatient (REF) | payer MEDICARE, SELFPAY ==
[2023-07-18 17:04] LABS: MANUAL DIFF FLAG NO
[2023-07-18 17:53] LABS: Basophils Absolute Auto 0.1 X10*3/uL (0.0-0.2); Basophils Percent Auto 0.9 % (0-2); Eosinophils Percent Auto 0.5 % (0-4); Hematocrit 33.8 % (37.0-47.0); Hemoglobin 11.4 g/dl (12.0-16.0); Imm Gran Abs Auto 0.08 X10*3/uL (0.00-0.03); Lymphocytes Percent Auto 37.3 % (20-40); Mean Corpuscular HGB Conc 33.7 g/dl (31.0-35.0); Mean Corpuscular Volume 79.9 fL (80.0-98.0); Mean Platelet Volume 9.7 fL (9.4-12.3); Monocytes Absolute Auto 0.7 X10*3/uL (0.1-1.2); Monocytes Percent Auto 9.3 % (2-11); Platelet Count 227 X10*3/uL (160-400); Red Blood Count 4.23 X10*6/uL (4.20-5.50); Red Cell Distribution Width 17.9 % (11.0-16.0); White Blood Count 7.9 X10*3/uL (4.8-10.8)
[2023-07-18 18:35] LABS: Alanine Aminotransferase 29 U/L (0-31); Albumin Level 4.1 g/dL (3.5-5.0); Alkaline Phosphatase 88 U/L (39-117); Anion Gap 14 (12-20); Aspartate Amino Transferase 14 U/L (5-31); Bilirubin Total 0.3 mg/dL (0.0-1.0); Blood Urea Nitrogen 8 mg/dL (9-16); Carbon Dioxide 27 mmol/L (22-29); Chloride 106 mmol/L (96-108); Estimated Glomerular Filt Rate > 60; Glucose Random 171 mg/dL (60-115); Sodium 143 mmol/L (135-145); Total Protein 6.8 g/dL (6.5-8.0)
== END 2023-07-18 16:57 | disposition home or self-care (01) ==
LOC: HO.LAB 16:56
PROVIDERS: PCP Physician Assistant; Visit Provider Internal Medicine
DX: C50.919 Malignant neoplasm of unspecified site of unspecified female breast (principal)
CPT/HCPCS: 36415; 80053; 85025

== ENCOUNTER 2023-08-01 13:39 | Outpatient (RCR) | payer MEDICARE, SELFPAY ==
--- NOTE | 2023-08-01 16:18 | MHC.OT.EP ---
[address] [phone] Occupational Therapy Plan of Care Patient Name: Daniella Sims Date of Evaluation: 08/01/23 Diagnosis: Right upper extremity lymphedema Pain Location: Denies pain . Right upper quadrant Pain Score: 0 Pain Scale Used: Aggravating Factors: NA Alleviating Factors: Assessment: Pt is a 73 yo female with a sudden onset of RUE edema due to right breast cancer diagnosed this past April. She has had right axillary lymph node biopsy and right breast biopsy. She is currently undergoing chemotherapy. Today pt presents with right upper extremity lymphedema and mild chest wall lymphedema. Upper extremity range of motion and strength are WNL. Pt reports she is unable to participate in a full program of CDT but is able to attend two times a week to learn self management techniques. Frequency and Duration: The patient will be seen 2 x wk for 3 wks Short Term Goals: Pt will understand lymphedema precautions to decrease the risk of infection and exacerbation of the lymphedema. Pt will have a tolerance for wearing a compression wrap glove, sleeve and compression tank top to facilitate decongestion Pt will demonstrate a decrease in edema with will improve tissue health and decrease the risk of infection. Pt will preform a HEP with minimal assistance to help improve lymphatic flow. Pt will preform a self MDL protocol to help reduce swelling Pt will be independent in self monitor right upper extremity lymphedema. Pt will be independent in lymphedema management prevent worsening edema and to reduce the risk of infection Usp Goals: Same as above Treatment Plan: Electronically Signed By: Dulce Funk OT CHT CLT Please Sign and return to therapist. Thank you once again for your referral.
--- NOTE | 2023-09-02 13:57 | MHC.OT.DC ---
[address] [phone] F: [phone] Occupational Therapy Discharge Note Patient Name: Daniella Sims Provider: Marielena Kaufman Diagnosis: Right upper extremity Lymphedema Date of Surgery: Date of Evaluation: 08/01/23 Date of Discharge: 09/02/23 Treatments to Date: 1 Cancellations to Date: No Shows to Date: Discharge Status: Visit Non-compliance Discharge Summary: See eval for details [facility] has recieved MD RX and has reached out to patient. Pt has not returned calls from OT or O+P Electronically Signed By: Dulce Funk OT CHT CLT Reviewed/agree with student documentation: Therapist: Please Sign and return to therapist, thank you for your referral.
== END 2023-09-02 13:58 | disposition home or self-care (01) ==
LOC: HO.OT 13:39
PROVIDERS: PCP Physician Assistant; Visit Provider Internal Medicine
DX: I89.0 Lymphedema, not elsewhere classified (principal); C50.919 Malignant neoplasm of unspecified site of unspecified female breast
CPT/HCPCS: 97166

== ENCOUNTER 2023-08-13 08:04 | Outpatient (AMB) | payer MEDICARE, SELFPAY ==
--- NOTE | 2023-08-13 08:17 | A.OFFPC_ITS ---
Vital Signs 08/13/23 08:18 Height 5 ft 4 in Weight 149 lb BMI 25.6 BP 102/68 Blood Pressure Location Lt brachial Position Sitting Pulse 120 H Pulse Source Pulse Oximeter Pulse Oximetry (%) 96 Oxygen Delivery Method Room Air Intake Visit Reasons: Physical Exam -see bulliten board Intake Note: Patient here for physical exam Managing Attorney Required: No Accompanied by: Son Allergies No Known Allergies Allergy (Verified 08/13/23 08:31) Medication List - Last Reconciled 08/13/23 by Prabhjot Gold PA-C blood pressure monitor (Blood Pressure Kit) As directed magnesium 250 mg PO DAILY metformin ER 500 mg PO BID 90 days rosuvastatin 40 mg PO DAILY Tobacco use date assessed: 02/28/23 Fall risk assessment: No Falls in past year Last assessed Fall Risk: 08/13/23 Dental Screening Dental Screen Date: 08/13/23 Did you have a dental visit in the last 12 months?: No Did you have a dental problem in the last 6 months where you did not have access to dental care?: No Was dental information given to patient?: Patient has dentist HPI Physical Exam -see bulliten board HPI Details Patient is a 73-year-old female here today for a routine annual physical Patient has a past medical history significant for type 2 diabetes, h yperlipidemia, hypertension Breast cancer: Interval history--> Patient did have a swollen right arm and axillary/cervical lymphadenopathy, was referred to Oncology and underwent lymph node biopsy of the right supraclavicular area on 04/23/2023, FNA cytology was read as positive for?malignant cells with necrosis.? Not enough tissue to run additional studies. She started neoadjuvant chemotherapy/immunotherapy with carbo/Taxol weekly with pembrolizumab to be followed by Adriamycin/Cytoxan with pembrolizumab. She started treatment on 05/16/2023. Both right supraclavicular lymph node and right arm swelling has come down .. Type 2 diabetes:? Today's A1c at 12. Reports she has been out of metformin over the last week. Does admit to some dietary indiscretion. Discussed her elevated A1c and the need to start insulin the patient declines and would like to work on lifestyle/diabetic diet and be more compliant with metformin use. Patient continues on metformin without side effect.? .. Hyperlipidemia:? Most recent lipid panel has stabilize after starting statin therapy. .. HTN:? Continues manage blood pressure with lifestyle modifications. Was previously on valsartan.? Today's blood pressure in office acceptable and has not been taking blood pressure medication.? Will hold off on continuing blood pressure medication. Colon cancer screening: Has not had any colon cancer screening. Willing to be referred to Gastroenterology for colonoscopy. Mammogram: Has breast cancer- undergoing treatment and Oncology follow. Vaccines: Up-to-date with COVID vaccine, need PCV vaccine. Laboratory Tests 02/28/23 07/25/23 08/01/23 11:15 09:53 13:31 Hgb 13.0 Hct Creatinine 0.84 Random Glucose 283 H Urine Microalbumin 41.0 08/01/23 13:31 Hgb 12.7 Hct 36.2 L Creatinine Random Glucose Urine Microalbumin PFSH Medical History Axillary lymphadenopathy Breast mass, right Diabetes Hypertension Surgical History No pertinent past surgical history Family History Father No problems noted. Mother Cervical cancer Family/Other Mental health disorder Household Members: Children Housing: House Alcohol intake: never Patient Tobacco Use Status: Never used Tobacco e-Cigarette/Vaping Use: Never Used Second Hand Smoke Exposure: No service: No Current occupational status: retired Current occupation: right handed Cognitive needs: No Hearing needs: No Vision needs: Yes Female Reproductive History Menstrual Age of Menarche: 13 Questionnaire Thrive Questionnaire Date Thrive assessed: 02/28/23 SINTIA-7 AMB Questionnaire SINITA-7 Date SINTIA - 7 assessed: 02/28/23 Source: Developed by Drs. Bernardo Murphy, Agatha Estevez, Leo Linares and colleagues, with an educational hernandez from [employer]. Review of Systems Const Denies body aches, Denies chills, Denies excessive sweating, Denies fatigue, Denies fever(s) and Denies headache(s) Eyes Denies blurry vision ENT Denies dysphagia, Denies vertigo, Denies dizziness, Denies headache(s), Denies hearing loss and Denies tinnitus Card Denies chest pain, Denies chest pain with activity, Denies syncope, Denies irregular heart rhythm and Denies dyspnea Resp Denies chest congestion, Denies cough, Denies hemoptysis, Denies dyspnea and Denies wheezing GI Denies abdominal pain, Denies melena, Denies hematochezia, Denies coffee ground emesis, Denies dysphagia, Denies diarrhea, Denies nausea and Denies vomiting Denies urinary frequency, Denies dysuria, Denies urinary hesitancy and Denies urinary urgency Musc Denies arthralgias, Denies limited range of motion, Denies muscle cramps and Denies muscle weakness Skin/Breast Denies rash and Denies skin ulcer Neuro Denies Abnormal speech present, Denies confusion, Denies vertigo, Denies dizziness, Denies syncope, Denies headache(s), Denies memory loss and Denies seizure-like activity Psych Denies anxiety, Denies confusion, Denies depression, Denies memory loss, Denies panic attacks and Denies paranoia Endo Denies excessive sweating, Denies fatigue, Denies flushing, Denies polydipsia and Denies polyuria Aller/Immun Denies wheezing Physical exam (Primary Care) Vital Signs: Last Vital Signs Pulse 120 H 08/13/23 08:18 BP 102/68 08/13/23 08:18 Pulse Ox 96 08/13/23 08:18 Oxygen Delivery Method Room Air 08/13/23 08:18 BMI result Body Mass Index 25.6 Tobacco/Smoking Status: Tobacco use Status Tobacco use date assessed 02/28/23 08/13/23 08:22 Patient Tobacco Use Status Never used Tobacco 08/13/23 08:22 e-Cigarette/Vaping Use Never Used 08/13/23 08:22 Thrive Assessment: Date of Thrive Assessment Date Thrive assessed 02/28/23 08/13/23 08:22 Const General: cooperative, comfortable, no acute distress, alert and awake; No confusion Orientation/consciousness: oriented to person, oriented to place, patient oriented x3 and No confusion HENMT Head: Yes normocephalic Ears: external ears normal and TM's normal bilaterally Face and sinus: No sinus tenderness Mouth: Normal oral and palatal mucosa present and tongue normal Teeth and gingiva: dentition normal and gingiva normal Throat: Yes posterior oropharynx normal, Yes tonsils normal and Yes uvula midline Eyes Conjunctivae: conjunctivae normal Sclerae: sclerae normal Pupils: Equal, round and reactive pupils present EOM: EOMs intact bilaterally Direct Ophthalmoscopy: No no photophobia Neck Neck: Yes no lymphadenopathy, No tender and Yes no JVD Thyroid: Thyroid normal Carotids: no bruits Chest Chest palpation & inspection: no tenderness Resp Effort & Inspection: normal respiratory effort, no audible wheezes, not labored and no stridor Auscultation: no crackles, no rales, no rhonchi and no wheezes Cardio Jugular venous distension: no JVD Rate: regular rate, not bradycardic and not tachycardic Rhythm: regular rhythm Bruits: no carotid bruits Peripheral pulses: Peripheral pulses 2+ throughout GI Inspection: Yes normal to inspection, No abdominal wall ecchymosis and No visible herniation Palpation (GI): Soft to palpation, nontender, no guarding, not rigid and No hepatosplenomegaly present Auscultation: normoactive bowel sounds General: Yes no CVA tenderness Back/Spine/Pelvis Back: no CVA tenderness and No back tenderness Cervical Spine: cervical ROM normal Thoracic/Lumbar Spine: thoracic and lumbar spine normal to inspection, straight leg raise negative bilaterally, No thoraco-lumbar ROM limited and No lumbar spinal tenderness Skin Lesions: no lesions Rashes: no rashes Wounds: no wounds Neuro General: oriented to person, oriented to place, patient oriented x3, CN's II-XI intact bilaterally and No confusion Cranial nerves: Yes Equal, round and reactive pupils present and Yes Normal accommodation reflex present Cognition (Neuro): normal cognition Speech: No Abnormal speech present Gait exam (Neuro): Normal gait present Motor exam (neuro): 5/5 motor strength present throughout Extrem Right upper extremity: full ROM; no cyanosis Left upper extremity: full ROM; no cyanosis Right lower extremity: no edema Left lower extremity: no edema Psych Appearance: grossly normal Mental Status: mental status grossly normal Affect: normal affect Attitude: cooperative Thought process: Normal thought process present Results AMB Hemoglobin A1c AMB Hemoglobin A1c 12.0 % Last Edit by TRINITY Miller on 08/13/23 08: 33 Results Reviewed Results Reviewed: Laboratory Last Values Hgb A1c (Clinic) 12.0 % (4.0-6.0) H 08/13/23 08:26 Assessment and Plan Assessment & Plan (1) HTN (hypertension): Code(s): I10 - Essential (primary) hypertension Qualifiers: Hypertension type: primary hypertension Qualified Code(s): I10 - Essential (primary) hypertension Plan: Blood pressure acceptable today in office currently lifestyle controlled. Goal blood pressure to be below 140/90 (2) DMII (diabetes mellitus, type 2): Code(s): E11.9 - Type 2 diabetes mellitus without complications Qualifiers: Diabetes mellitus complication status: with hyperglycemia Diabetes mellitus detention insulin use: without detention use Qualified Code(s): E11.65 - Type 2 diabetes mellitus with hyperglycemia Plan: Patient's type 2 diabetes suboptimally controlled with A1c at 12. Patient continues to take metformin 500 b.i.d. advised on starting insulin though patient declines. Would like to work on lifestyle modifications if she does report eating a lot of rice. Will continue working on lifestyle modifications to reduce her high carbohydrate foods. Goal A1c is to be below 7.0 (3) HLD (hyperlipidemia): Code(s): E78.5 - Hyperlipidemia, unspecified Qualifiers: Hyperlipidemia type: mixed hyperlipidemia Qualified Code(s): E78.2 - Mixed hyperlipidemia Plan: Patient most recent fasting lipid panel showing acceptable total cholesterol and LDL. Continues on high-dose statin therapy. Goal LDL to be below 100 (4) Tachycardia: Code(s): R00.0 - Tachycardia, unspecified Plan: Have noted elevated heart rates June 2023. Unclear etiology at this time. Has been seen at the ER for this and noted sinus rhythm. Will start metoprolol to help reduce her heart rates. (5) Sinusitis: Code(s): J32.9 - Chronic sinusitis, unspecified Qualifiers: Chronicity: acute Recurrence: non-recurrent Sinusitis location: frontal Qualified Code(s): J01.10 - Acute frontal sinusitis, unspecified Plan: Recently diagnosed with COVID. Continues with postnasal drip in sinusitis and a mild cough. Will supply patient with antihistamine and nasal spray. Outside window to start Paxlovid it at this time. Orders: Orders AMB Hemoglobin A1c 08/13/23 E11.9 - Type 2 diabetes mellitus without complications Medications: New metoprolol succinate ER 25 mg PO DAILY 90 days 90 tabs 1RF R00.0 - Tachycardia, unspecified loratadine 10 mg PO DAILY 30 days 30 tabs 1RF J01.10 - Acute frontal sinusitis, unspecified fluticasone propionate 50 mcg/actuation (Flonase Allergy Relief) administer into each nostril 1 spray intranasal BID 30 days 16 grams 1RF J01.10 - Acute frontal sinusitis, unspecified Refilled metformin ER 500 mg PO BID 90 days 180 tabs 1RF E11.65 - Type 2 diabetes mellitus with hyperglycemia Coding Level of Care Code Est Pt Prev Care >65y([id number]) Diagnoses Primary hypertension I10 Hypertension type: primary hypertension Type 2 diabetes mellitus with hyperglycemia, without long-term current use of insulin E11.65 Diabetes mellitus complication status: with hyperglycemia Diabetes mellitus ocean transportation intermediary insulin use: without ocean transportation intermediary use Mixed hyperlipidemia E78.2 Hyperlipidemia type: mixed hyperlipidemia Tachycardia R00.0 Acute non-recurrent frontal sinusitis J01.10 Chronicity: acute Recurrence: non-recurrent Sinusitis location: frontal
[2023-08-13 08:18] VITALS: BP 102/68; PULSE 120; O2SAT 96; BMI 25.6
== END 2023-08-13 09:03 | disposition home or self-care (01) ==
LOC: HO.HMGH 08:04
PROVIDERS: PCP Physician Assistant; Visit Provider Physician Assistant
DX: E11.9 Type 2 diabetes mellitus without complications (principal)
CPT/HCPCS: 83036; 99397

== ENCOUNTER → 2023-09-05 15:00 | Outpatient (BNV) | payer MEDICARE, SELFPAY | PROVIDERS: PCP Physician Assistant; Visit Provider Radiology Diagnostic Radiology | DX: C50.911 Malignant neoplasm of unspecified site of right female breast (principal) | CPT/HCPCS: 76642 ==

== ENCOUNTER 2023-09-05 15:28 | Outpatient (REF) | payer MEDICARE, SELFPAY ==
--- NOTE | ~2023-09-05 | US_ITS ---
EXAMINATION: US DIAGNOSTIC ULTRASOUND BREAST, RIGHT CLINICAL INFORMATION: Follow-up tumor size right breast and axillary adenopathy status post neoadjuvant chemotherapy.. COMPARISON: 04/15/2023 right breast ultrasound. TECHNIQUE: Ultrasound of the right breast is performed with real-time maradiaga scale imaging and color Doppler. FINDINGS: Within the right breast at the 10:00 axis, 11 cm from the nipple, the primary tumor has decreased significantly in size, currently measuring 0.7 x 0.6 x 0.9 cm, previously measuring 1.9 x 1.2 x 2.3 cm. A biopsy clip is seen centrally. No new finding in this region. In the right axilla, a large lymph node previously seen measuring 1.2 x 1.8 x 2.8 cm has increased in size somewhat, currently measuring approximately 3.0 x 1.7 x 3.2 cm. There appears to be a central biopsy clip present. There are linear echogenic changes within the node, which may reflect song changes of necrosis from treatment. No new lymphadenopathy detected. US/US breast RT limited mamm only IMPRESSION: Significant decrease in the size of the primary tumor at the 10:00 axis right breast. Increase in the size of right axillary lymph node although this may be secondary to changes within the node such as tumoral necrosis from treatment. Continued follow-up recommended. ASSESSMENT: BI-RADS 6: Known Biopsy-Proven Malignancy RECOMMENDATION: 1. Patient should be managed based on the clinical impression. This patient's information was entered into a reminder system with a target due date for their next mammogram.
== END 2023-09-05 15:29 | disposition home or self-care (01) ==
LOC: HO.MAMMO 15:28
PROVIDERS: PCP Physician Assistant; Visit Provider Internal Medicine
DX: C50.911 Malignant neoplasm of unspecified site of right female breast (principal)
CPT/HCPCS: 76642

== ENCOUNTER 2023-11-13 15:23 | Outpatient (AMB) | payer MEDICARE, SELFPAY ==
[2023-11-13 15:34] VITALS: BP 118/70; PULSE 115; RESP 16; O2SAT 99; BMI 25.1
--- NOTE | 2023-11-13 15:34 | A.OFFPC_ITS ---
Vital Signs 3 11/13/23 15:34 Height 5 ft 4 in Weight 146 lb 2 oz BMI 25.1 BP 118/70 Blood Pressure Location Lt brachial Position Sitting Respiration 16 Pulse 115 H Pulse Source Pulse Oximeter Pulse Oximetry (%) 99 Oxygen Delivery Method Room Air Intake Visit Reasons: f/u DMII Rn Cvicu Required: No Accompanied by: Self / Same As Patient Allergies No Known Allergies Allergy (Verified 11/13/23 15:57) Medication List - Last Reconciled 11/13/23 by Prabhjot Gold PA-C blood pressure monitor (Blood Pressure Kit) As directed fluticasone propionate 50 mcg/actuation (Flonase Allergy Relief) 1 spray intranasal BID 30 days loratadine 10 mg PO DAILY 30 days magnesium 250 mg PO DAILY metformin ER 500 mg PO BID 90 days metoprolol succinate ER 25 mg PO DAILY 90 days rosuvastatin 40 mg PO DAILY Tobacco use date assessed: 11/13/23 Fall risk assessment: No Falls in past year Last assessed Fall Risk: 11/13/23 Dental Screening Dental Screen Date: 11/13/23 Did you have a dental visit in the last 12 months?: Yes Did you have a dental problem in the last 6 months where you did not have access to dental care?: No Was dental information given to patient?: Patient has dentist HPI f/u DMII 2 HPI0 Details Patient is a 73-year-old female here today for a follow-up visit Patient has a past medical history significant for type 2 diabetes, hyperlipidemia, hypertension. Concern--> reports over the last several weeks having moderate to severe bilateral feet pain. She reports getting injections in her feet while visiting in [place] which helped reduce her left foot pain though still has right foot pain. She reports her pain is bad at night and causes her some sleep disruption.. Breast cancer: Interval history--> Patient did have a swollen right arm and axillary/cervical lymphadenopathy, was referred to Oncology and underwent lymph node biopsy of the right supraclavicular area on 04/23/2023, FNA cytology was read as positive for?malignant cells with necrosis.? Not enough tissue to run additional studies. She started neoadjuvant chemotherapy/immunotherapy with carbo/Taxol weekly with pembrolizumab to be followed by Adriamycin/Cytoxan with pembrolizumab. She started treatment on 05/16/2023. Both right supraclavicular lymph node and right arm swelling has come down .. Type 2 diabetes:? At last visit we discussed restarting her diabetic medication as her blood sugars were elevated and her A1c is at 12. She restarted her metformin has been implementing a diabetic diet and A1c now down to 7.7. .. Hyperlipidemia:? Most recent lipid panel has stabilize after starting statin therapy. .. HTN:? Continues manage blood pressure with lifestyle modifications. Was previously on valsartan.? Today's blood pressure in office acceptable and has not been taking blood pressure medication.? Will hold off on continuing blood pressure medication. [facility], [facility] Medical History Axillary lymphadenopathy Breast mass, right Diabetes Hypertension Surgical History No pertinent past surgical history Family History Father No problems noted. Mother Cervical cancer Family/Other Mental health disorder Social History Household Members: Children Housing: House Alcohol intake: never Patient Tobacco Use Status: Never used Tobacco e-Cigarette/Vaping Use: Never Used Second Hand Smoke Exposure: No service: No Current occupational status: retired Current occupation: right handed Cognitive needs: No Hearing needs: No Vision needs: Yes Female Reproductive History Menstrual Age of Menarche: 13 Questionnaire PHQ-9 Over the last 2 weeks, how often have you been bothered by any of the following problems? 1. Little interest or pleasure in doing things: not at all 2. Feeling down, depressed, or hopeless: not at all 3. Trouble falling or staying asleep, or sleeping too much: not at all 4. Feeling tired or having little energy: not at all 5. Poor appetite or overeating: not at all 6. Feeling bad about yourself - or that you are a failure or have let yourself or your family down: not at all 7. Trouble concentrating on things, such as reading the newspaper or watching television: not at all 8. Moving or speaking so slowly that other people could have noticed. Or the opposite - being so fidgety or restless that you have been moving around a lot more than usual: not at all 9. Thoughts that you would be better off or of hurting yourself in some way: not at all Total score: 0 Depression Screening Interpretation: Negative Depression Screening Done: Yes 93944 - PHQ-9 Billing: Yes Source: Developed by Drs. Bernardo Murphy, Agatha Estevez, Leo Linares and colleagues, with an educational hernandez from [employer]. Thrive Questionnaire Date Thrive assessed: 11/13/23 I am a: Patient What is your living situation today?: I have a steady place to live Within the past 12 months, did the food you bought not last and you didn't have the money to get more?: Never true Within the past 12 months, did you worry whether your food would run out before you got money to buy more?: Never true Do you have trouble paying for medicines?: No Do you have trouble getting transportation to medical appointments?: No Do you have trouble paying your heating and electricity bill?: No Do you have trouble taking care of your child, family member or friend?: No Do you have trouble with day-to-day activities such as bathing, preparing meals, shopping, managing finances, etc.?: No Are you currently unemployed and looking for a job?: No Are you interested in more education?: No Please select the resources that you would like help with: None Currently or been in a relationship where the following occur: no concerns reported THRIVE Score: 0 AUDIT C Alcohol Use Questionnaire (AUDIT-C) 1. How often do you have a drink containing alcohol?: Never 3. How often do you have six or more drinks on one occasion?: Never Total Score: 0 SINTIA-7 AMB Questionnaire SINTIA-7 Date SINTIA - 7 assessed: 11/13/23 Feeling nervous, anxious, or on edge: 0 = Not at all Not being able to stop or control worryin = Not at all Worrying too much about different things: 0 = Not at all Trouble relaxin = Not at all Being so restless that it is hard to sit still: 0 = Not at all Becoming easily annoyed or irritable: 0 = Not at all Feeling afraid as if something awful might happen: 0 = Not at all Total SINTIA-7 score (0-4 normal; 5-9 mild; 10-14 moderate; 15-21 severe): 0 Source: Developed by Drs. Bernardo Murphy, Agatha Estevez, Leo Linares and colleagues, with an educational hernandez from [employer]. SINTIA-7 Assessment Billing SINTIA-7 Assessment Tool: SINTIA-7 Assessment 74969 Review of Systems Const Denies headache(s) Eyes Denies loss of vision ENT Denies vertigo, Denies dizziness, Denies headache(s) and Denies sore throat Card Denies chest pain, Denies leg edema and Denies lightheadedness Resp Denies cough, Denies hemoptysis and Denies wheezing GI Denies abdominal pain, Denies melena, Denies constipation, Denies diarrhea and Denies vomiting Denies urinary frequency, Denies dysuria and Denies urinary urgency Musc Denies arthralgias, Denies joint swelling, Denies numbness and Denies tingling Neuro Denies Abnormal speech present, Denies behavioral changes, Denies vertigo, Denies dizziness, Denies headache(s), Denies loss of vision, Denies memory loss, Denies numbness and Denies tingling Psych Denies anxiety, Denies behavioral changes, Denies depression, Denies memory loss and Denies panic attacks Farhat/Lymph Denies easy bleeding and Denies easy bruising Aller/Immun Denies wheezing Physical exam (Primary Care) Vital Signs: Last Vital Signs Pulse 115 H 11/13/23 15:34 Resp 16 11/13/23 15:34 BP 118/70 11/13/23 15:34 Pulse Ox 99 11/13/23 15:34 Oxygen Delivery Method Room Air 11/13/23 15:34 BMI result Body Mass Index 25.1 Tobacco/Smoking Status: Tobacco use Status Tobacco use date assessed 11/13/23 11/13/23 15:35 Patient Tobacco Use Status Never used Tobacco 11/13/23 15:35 e-Cigarette/Vaping Use Never Used 11/13/23 15:35 PHQ-9: PHQ-9 Score PHQ-9: Total score 0 11/13/23 15:59 Depression Screening Interpretation: Negative Thrive Assessment: Date of Thrive Assessment Date Thrive assessed 11/13/23 11/13/23 15:44 Currently or been in a relationship where the following occur: no concerns reported Const General: healthy appearing, no acute distress, alert and awake Nutritional Appearance: well nourished Orientation/consciousness: oriented to person, oriented to place and oriented to time HENMT Ears: TM's normal bilaterally General nose exam: Normal nasal mucous membranes and turbinates present Eyes Conjunctivae: conjunctivae normal Sclerae: sclerae normal Pupils: Equal, round and reactive pupils present Neck Neck: Yes no lymphadenopathy and Yes no JVD Thyroid: Thyroid normal Carotids: no bruits Resp Effort & Inspection: normal respiratory effort and not tachypneic Auscultation: no crackles, no rales, no rhonchi and no wheezes Cardio Rate: regular rate Rhythm: regular rhythm Heart sounds: no murmurs and normal S1 and S2 GI Palpation (GI): Soft to palpation, nontender, no hepatomegaly and no splenomegaly Auscultation: normal bowel sounds Skin General skin exam: no rashes or lesions noted and dry skin Neuro General: oriented to person, oriented to place and oriented to time Cranial nerves: Yes Equal, round and reactive pupils present Speech: No Abnormal speech present Gait exam (Neuro): Normal gait present Motor exam (neuro): no tremor noted Extrem Right upper extremity: full ROM Left upper extremity: full ROM Right lower extremity: full ROM; no edema Left lower extremity: full ROM; no edema Ankle/foot/toe images: 2 1. NO NOTABLE SKIN BREAKDOWN OR ULCERATIONS. DOES HAVE DRY SKIN. GOOD DORSALIS PEDIS PULSES Psych Mental Status: mental status grossly normal Speech and movement: Normal speech and movement present Affect: normal affect Attitude: cooperative Thought process: Normal thought process present Results AMB Hemoglobin A1c 2 AMB Hemoglobin A1c 7.7 % Last Edit by ABDIRAHMAN Day on 11/13/23 16:00 Assessment and Plan Assessment & Plan (1) HTN (hypertension): Code(s): I10 - Essential (primary) hypertension Qualifiers: Hypertension type: primary hypertension Qualified Code(s): I10 - Essential (primary) hypertension Plan: Blood pressure acceptable today in office currently lifestyle controlled. Goal blood pressure to be below 140/90 (2) DMII (diabetes mellitus, type 2): Code(s): E11.9 - Type 2 diabetes mellitus without complications Qualifiers: Diabetes mellitus complication status: with hyperglycemia Diabetes mellitus terminal operations manager insulin use: without terminal operations manager use Qualified Code(s): E11.65 - Type 2 diabetes mellitus with hyperglycemia Plan: Patient's type 2 diabetes suboptimally controlled. A1c much improved at 7.7 from 12.2. Has been implementing a diabetic diet and restarted her metformin. Goal A1c is to be below 7.0 (3) HLD (hyperlipidemia): Code(s): E78.5 - Hyperlipidemia, unspecified Qualifiers: Hyperlipidemia type: mixed hyperlipidemia Qualified Code(s): E78.2 - Mixed hyperlipidemia Plan: Patient most recent fasting lipid panel showing acceptable total cholesterol and LDL. Continues on high-dose statin therapy. Goal LDL to be below 100 (4) Plantar fasciitis, bilateral: Code(s): M72.2 - Plantar fascial fibromatosis Plan: Patient's signs and symptoms are concerning for bilateral plantar fasciitis. This has been evident over last several years though reports over last several weeks has been more severe. She reports getting an injection in her feet bilaterally while visiting in [place] though does not recall a certain diagnosis. She reports injections were the plantar region. She reports the injections were helpful She would like to see a engineering test specialist for another injection. Will supply patient with gabapentin 100 mg at night to help reduce foot pain that may be related to neuropathy as well. Orders: Orders 2 Microalbumin, Random (w Creat) Today E11.65 - Type 2 diabetes mellitus with hyperglycemia Comprehensive [place]. Panel Fast Today E11.65 - Type 2 diabetes mellitus with hyperglycemia Lipid Panel Today E78.2 - Mixed hyperlipidemia Referrals 2 Podiatry Referral M72.2 - Plantar fascial fibromatosis Medications: New 2 gabapentin 100 mg PO BEDTIME 90 caps 1RF M72.2 - Plantar fascial fibromatosis Refilled 2 rosuvastatin 40 mg PO DAILY 90 tabs 1RF E78.2 - Mixed hyperlipidemia Coding Level of Care Code Est Pt Level 4 (50194) Diagnoses Primary hypertension I10 Hypertension type: primary hypertension Type 2 diabetes mellitus with hyperglycemia, without long-term current use of insulin E11.65 Diabetes mellitus complication status: with hyperglycemia Diabetes mellitus terminal operations manager insulin use: without terminal operations manager use Mixed hyperlipidemia E78.2 Hyperlipidemia type: mixed hyperlipidemia Plantar fasciitis, bilateral M72.2 Additional Codes SINTIA-7 Assessment Billing - SINTIA-7 Assessment Tool: SINTIA-7 Assessment [id number] ([id number])
== END 2023-11-13 16:15 | disposition home or self-care (01) ==
PROVIDERS: PCP Physician Assistant; Visit Provider Physician Assistant
DX: I10 Essential (primary) hypertension (principal); E11.65 Type 2 diabetes mellitus with hyperglycemia; E78.2 Mixed hyperlipidemia; M72.2 Plantar fascial fibromatosis; E11.9 Type 2 diabetes mellitus without complications
CPT/HCPCS: 83036; 99214

== ENCOUNTER 2023-12-02 11:52 | Outpatient (AMB) | payer MEDICARE, SELFPAY ==
--- NOTE | 2023-12-02 11:58 | A.OFFVIS_ITS ---
Intake Vital Signs 12/02/23 12:02 Height 5 ft 4 in Weight 146 lb BMI 25.1 BP 122/61 Blood Pressure Location Lt brachial Position Sitting Pulse 120 H Intake Visit Reasons: Ready for RT breast surgery Intake Note: This patient presents for to re-discuss right breast surgery for hypoechoic mass on the right breast. Pt c/o; reports no changes at this time. [place] Department Supervisor Required: No Accompanied by: Other Relationship Allergies No Known Allergies Allergy (Verified 12/02/23 12:04) HPI Ready for RT breast surgery HPI Details 73-year-old female here for follow-up fo r her right breast invasive carcinoma. I had seen her last April,. At that time, she had axillary lymphadenopathy in cervical lymphadenopathy seen on CT scan. She therefore had a diagnostic mammogram and ultrasound of the breasts and there was note of hypoechoic mass on the right breast on the upper outer quadrant. There was note of an enlarged lymph node in the right axilla. Biopsies of the right breast tumor as well as the right axillary lymph node showed a triple negative carcinoma. Needle aspiration biopsy of the supraclavicular lymph node also showed malignant cells. In view of a clinical stage of T3 N2, she underwent neoadjuvant chemotherapy and immunotherapy with Dr. Kaufman of Oncology. She was on carbotaxol with pembrolizumab followed by Adriamycin and Cytoxan. There was note of increase in size of the supraclavicular lymph node. The edema of the right arm seems to persist. She had an ultrasound done last August, as well showing that the primary tumor in the right breast had decreased in size from 1.9 x 1.2 by 2.32.7 x 0.6 x 0.9 cm. The large lymph node in the right axilla had increased in size to 3.0 x 1.7 x 3.2 cm from 1.2 x 1.8 x 2.8. She otherwise denies any new complaints. She states that she feels well overall. Her menarche was at the age of 13. Her 1st was age of 26. She had 2 pregnancies. She had her menopause in her 50s. She says does not recall of any breast cancer in the family. [facility] Medical History Axillary lymphadenopathy Breast mass, right Diabetes Hypertension Surgical History No pertinent past surgical history Family History Father No problems noted. Mother Cervical cancer Family/Other Mental health disorder Social History Household Members: Children Housing: House Alcohol intake: never Patient Tobacco Use Status: Never used Tobacco e-Cigarette/Vaping Use: Never Used Second Hand Smoke Exposure: No Use of substances other than those prescribed or required for medical reasons: No Have you been hit, kicked, punched, or otherwise hurt by someone within the past year? If so, by whom?: No Do you feel safe in your current relationship?: No Current Relationship Do you have thoughts of harming others: None Do you have a plan to hurt others: No Plan Do you have the means to hurt others: No Recently lost weight without trying: No service: No Current occupational status: retired Current occupation: right handed Cognitive needs: No Hearing needs: No Vision needs: Yes Female Reproductive History Menstrual Age of Menarche: 13 Review of Systems Const Denies chills and Denies fever(s) Card Denies chest pain, Denies dyspnea and Denies dyspnea on exertion Resp Denies cough, Denies dyspnea and Denies dyspnea on exertion GI Denies hematochezia and Denies change in bowel habits Denies hematuria Musc Denies back pain and Denies limited range of motion Neuro Denies focal weakness and Denies convulsions Psych Denies depression and Denies mood swings Physical Exam Vital Signs: Last Vital Signs Pulse 120 H 12/02/23 12:02 BP 122/61 12/02/23 12:02 BMI result Body Mass Index 25.1 Const General: comfortable and no acute distress Orientation/consciousness: patient oriented x3 Neck Neck: Yes no lymphadenopathy Chest Other: Unable to feel a discrete mass on the right breast although there may be a vague induration on the upper outer quadrant; Palpable enlarged lymph node on the right axilla I am able to feel for the supraclavicular lymph node Resp Auscultation: clear to auscultation bilaterally Cardio Rhythm: regular rhythm GI Palpation (GI): Soft to palpation, nontender and no guarding Neuro General: patient oriented x3 Assessment & Plan Assessment & Plan (1) Breast cancer: Code(s): C50.919 - Malignant neoplasm of unspecified site of unspecified female breast Plan: She has right breast cancer, clinically T3N3, diagnosed last April,. She therefore had to undergo neoadjuvant chemotherapy and radiation. This is still ongoing. She had an ultrasound done last August, showing reason size of the right breast to more but with persistent an increase in size of the right axillary lymph node. I do not feel the supra clavicular lymph node at this time I have to discuss the plan of care with Dr. Kaufman of Oncology neoadjuvant treatment is still ongoing. She may need repeat follow-up imaging studies. I had discussed with with curative intent, likely procedure would be mastectomy/lumpectomy followed by radiation, with axillary dissection. She does have significant edema already of the right axilla and this may worsened with a full axillary dissection. We will review the benefits of proceeding with axillary dissection to her overall prognosis. Her family was with her during the visit. They have requested for a meeting with the oncologist service with regards to the plan from here on. Coding Level of Care Code Est Pt Level 4 (92052) Diagnoses Breast cancer C50.919
[2023-12-02 12:02] VITALS: BP 122/61; PULSE 120; BMI 25.1
== END 2023-12-02 12:38 | disposition home or self-care (01) ==
PROVIDERS: PCP Physician Assistant; Referring Provider Internal Medicine; Visit Provider Surgery
DX: C50.919 Malignant neoplasm of unspecified site of unspecified female breast (principal)
CPT/HCPCS: 99214

== ENCOUNTER → 2023-12-02 11:52 | Outpatient (BNVA) | payer MEDICARE, SELFPAY | PROVIDERS: PCP Physician Assistant; Referring Provider Internal Medicine; Visit Provider Surgery | DX: C50.911 Malignant neoplasm of unspecified site of right female breast (principal) | CPT/HCPCS: 99212 ==

== ENCOUNTER 2023-12-05 10:53 | Outpatient (REF) | payer MEDICARE, SELFPAY ==
--- NOTE | ~2023-12-05 | US_ITS ---
EXAMINATION: US DIAGNOSTIC ULTRASOUND BREAST, RIGHT CLINICAL INFORMATION: Follow-up right breast mass status post biopsy and right axillary enlarged lymph nodes status post biopsy after neoadjuvant chemotherapy. COMPARISON: 09/05/2023 right breast ultrasound, and 04/15/2023 right breast ultrasound. 05/08/2023 right breast and axillary ultrasound guided needle biopsy. TECHNIQUE: Ultrasound of the breast is performed with real-time maradiaga scale imaging and color Doppler. Attention was given to the biopsied lesion at 9-10:00 axis, 11 cm from the nipple, and the right axillary enlarged lymph node in the superficial right axilla. FINDINGS: The ultrasound clip in the right breast is open coil, and since the ultrasound-guided biopsy has migrated ventrally from the primary lesion at 9:00-10:00 axis approximately 1.3 cm. The primary lesion which underwent biopsy at the 9-10:00 axis, 10 cm from the nipple, currently measures 1.5 x 1.3 x 1.0 cm, previously measuring 0.7 x 0.6 x 0.9 cm 08/26/2023, and 1.9 x 1.2 x 2.3 cm just before the ultrasound-guided biopsy. It appears to have enlarged significantly since the prior study. The axillary lymph node which previously underwent biopsy demonstrates the presence of a hyperechoic small biopsy clip centrally, and currently measures approximately 2.2 x 0.9 cm, most recently 2.9 x 1.7 cm when measured in the same plane. It has decreased in size to a moderate degree. Just medial to the primary lesion at the 9-10 o'clock axis, there is a new or possibly enlarged not previously measured or biopsy lesion which is hypoechoic and irregular, taller than wide, measuring 0.5 x 0.8 x 0.7 cm at the 10:00 axis, 7 cm from the nipple (ultrasound-1, images 15 and 19 of 23). Options are to ultrasound-guided biopsy this lesion with mammography correlation, or the patient may undergo mastectomy as per Dr. Johnson. Results are discussed with the patient at time of visit. US/US breast RT limited mamm only IMPRESSION: 1. Primary lesion at 9-10:00 axis is larger to a moderate degree from the previous ultrasound of 09/05/2023. 2. Low axillary right lymph node is moderately smaller than on the previous of 09/05/2023 and demonstrates the presence of the biopsy clip. 3. Open coil biopsy clip has migrated 1.3 cm anterior to the 9-10:00 axis mass. This should be noted for further imaging. 4. Possible new hypoechoic irregular lesion seen at the 10:00 axis, 7 cm from the nipple, measuring 5 x [address] Kaufman was notified of this finding at 12:45 PM, today. We will wait until we hear back from Dr. Kaufman from scheduling a ultrasound biopsy for this possibly new lesion. ASSESSMENT: BI-RADS 6 - Known biopsy proven malignancy RECOMMENDATION: 1. Patient should be managed based on the clinical impression via oncology input. This patient's information was entered into a reminder system with a target due date for their next mammogram.
--- NOTE | ~2023-12-05 | MM_ITS ---
EXAMINATION: MM DIAGNOSTIC DIGITAL BREAST TOMOSYNTHESIS, RIGHT CLINICAL INFORMATION: Evaluate for possible new lesion right breast 10:00 axis, 7 cm from the nipple. COMPARISON: Mammography: 05/08/2023, 04/15/2023. Ultrasound-guided core biopsy 05/08/2023. Right breast diagnostic ultrasound 04/15/2023, 09/05/2023, and 12/05/2023. TECHNIQUE: Digital right breast tomosynthesis is performed in both the exaggerated lateral craniocaudal and mediolateral oblique views along with computer-aided detection (CAD). Synthesized 2D images are generated from the tomosynthesis. FINDINGS: There are scattered areas of fibroglandular density (ACR BI-RADS breast composition Category b). There is redemonstration of the primary mass lesion at the superior 10:00 axis which measures approximately 1.4 x 1.3 cm on mammography. The open coil biopsy clip has migrated 1.3 cm anterior to the primary mass at 10:00. It should be noted for future imaging. There is a subtle asymmetry just inferior to this with mildly spiculated anterior margin best seen on the MLO, no slightly lateral 9:00 axis, posterior depth. This may represent the known lesion. This was not present previously. The axillary lymph nodes could not be seen well on these images. MM/MM tomosynthesis diagnostic RT IMPRESSION: Possible region of new tumoral involvement just inferior to the primary rounded lesion at 9-10 o'clock axis. This could be correlated with ultrasound-guided biopsy and clip placement with postbiopsy mammography. Dr. Kaufman was made aware of these findings 12:45 PM, 12/05/2023 by secure text. We will hold off on ultrasound-guided biopsy of the new lesion until we hear back from her. The patient may be going for mastectomy. ASSESSMENT: BI-RADS BI-RADS 6 - Known biopsy proven malignancy RECOMMENDATION: 1. Patient should be managed based on the clinical impression via oncology input. Results were discussed with the patient at time of visit. Unknown if she clearly understood the findings. This patient's information was entered into a reminder system with a target due date for their next mammogram.
== END 2023-12-05 10:54 | disposition home or self-care (01) ==
LOC: HO.MAMMO 10:53
PROVIDERS: PCP Physician Assistant; Visit Provider Internal Medicine
DX: Z85.3 Personal history of malignant neoplasm of breast (principal)
CPT/HCPCS: 76642; 77061; 77065

== ENCOUNTER → 2023-12-05 11:00 | Outpatient (BNV) | payer MEDICARE, SELFPAY | PROVIDERS: PCP Physician Assistant; Visit Provider Radiology Diagnostic Radiology | DX: N63.11 Unspecified lump in the right breast, upper outer quadrant (principal) | CPT/HCPCS: 76642; 77065; G0279 ==

== ENCOUNTER 2023-12-24 10:08 | Outpatient (REF) | payer MEDICARE, SELFPAY ==
--- NOTE | ~2023-12-24 | PE_ITS ---
EXAMINATION: Fluorine-18 FDG PET/CT Scan CLINICAL INDICATION: Subsequent treatment management. Malignant neoplasm of right breast, restaging. PROCEDURE: 59 minutes following the intravenous administration of 16.5 mCi of fluorine 18 FDG, images from the base of the skull to the mid thighs were obtained using a combined PET/CT scanner with CT scan based attenuation correction. No oral contrast was administered. No intravenous contrast was administered. Transverse, coronal, sagittal, and volume reconstruction projections were obtained. The patient's blood glucose as determined by a finger stick, was 135 mg/dl immediately prior to injection. Total CT exam dose-length product 640.52 mGy-cm * These CT images were obtained using dose optimization techniques as appropriate, variously including the following: Automated exposure control * Adjustment of mA and/or kV according to patient size (this includes techniques or standardized protocols for targeted exams where dose is matched to indication/reason for exam; i.e. extremities or head) * Use of iterative reconstruction technique COMPARISON: No previous PET/CT scan is available for comparison. CT angiogram of the chest dated 07/12/[address] of the abdomen and pelvis dated 03/21/2023 are available for comparison. FINDINGS: NECK AND VISUALIZED HEAD: No foci of abnormal FDG activity are noted. The distribution of FDG activity is physiological. There is no cervical lymphadenopathy. THORAX: There is abnormally increased FDG activity associated with a soft tissue nodular density in the upper inner quadrant of the right breast. This shows SUVmax 7.5, slice 86/267. This measures 1.8 x 1.5 cm in largest transverse dimensions on the CT images and approximately 1.5 cm cephalocaudad. This appears to correspond to the suspicious focus in this region measuring 1.4 x 1.3 cm on the 12/05/2023 mammogram. There are no additional foci of abnormal FDG activity in the right breast. Multiple bilateral mediastinal hilar and proximal peribronchial FDG avid lymph nodes are present. Largest and most intensely FDG avid is a right lower paratracheal node showing SUVmax 4.7, slice 71/267 measuring 1.5 x 0.9 cm in largest transverse dimensions on the CT images. Additional FDG avid lymph nodes are present in the subcarinal, right hilar, proximal peribronchial regions bilaterally, the right prevascular and the AP window regions. There is no axillary lymphadenopathy on either side. No additional foci of abnormal FDG activity are present in the chest. No suspicious pulmonary nodules are visualized. There is no pleural or pericardial fluid, or pneumothorax. A left-sided chest port with internal jugular catheter terminating in the superior vena cava is noted ABDOMEN AND PELVIS: There is mild FDG activity present throughout the gastrointestinal tract. This is most intense in the right colon but no corresponding CT abnormalities are present. There is diverticulosis without evidence of diverticulitis. The hollow viscera are otherwise unremarkable. The liver, gallbladder, and spleen are unremarkable. The kidneys, adrenal glands and pancreas are unremarkable. There is a fluid density left adnexal cyst that measures 4.3 x 3.2 cm in largest transverse dimensions. This is markedly FDG photopenic. It is not significantly changed in size since the sixth 12/06/[address] scan. The uterus is absent. The pelvic organs are otherwise unremarkable. There is no retroperitoneal, mesenteric, pelvic or inguinal lymphadenopathy. MUSCULOSKELETAL: There are no foci of abnormal FDG activity in the osseous structures. There are degenerative changes in the spine, most severely in the midthoracic spine. There are no suspicious sclerotic or lytic lesions visualized. VASCULAR: Scattered vascular calcifications are present. Reference SUVmax Levels: Mediastinal Blood Pool: 1.8, Slice 79/267 Liver: 3.1, Slice 118/267 PET/PET CT fusion skull to thigh IMPRESSION: 1. An FDG avid right breast nodule is most likely malignant. 2. Multiple FDG avid mediastinal, right hilar and bilateral proximal peribronchial lymph nodes are strongly suspicious for metastases. 3. A stable left adnexal fluid density cyst shows no associated abnormal FDG activity and is likely benign. 4. No additional abnormalities suspicious for metastatic or other malignant lesions are noted.
== END 2023-12-24 10:09 | disposition home or self-care (01) ==
LOC: HO.PET 10:08
PROVIDERS: PCP Physician Assistant; Visit Provider Internal Medicine
DX: Z13.89 Encounter for screening for other disorder (principal)

== ENCOUNTER 2024-02-13 10:41 | Outpatient (AMB) | payer MEDICARE, SELFPAY ==
[2024-02-13 10:44] VITALS: BP 118/70; PULSE 115; O2SAT 99; BMI 24.4
--- NOTE | 2024-02-13 10:44 | MHC.PC.OV ---
Vital Signs 02/13/24 10:44 Height 5 ft 4 in Weight 142 lb 2 oz BMI 24.4 BP 118/70 Blood Pressure Location Rt brachial Position Sitting Pulse 115 H Pulse Source Pulse Oximeter Pulse Oximetry (%) 99 Oxygen Delivery Method Room Air Intake Visit Reasons: Follow-up type [address] Sql Developer Required: No Accompanied by: Self / Same As Patient Allergies No Known Allergies Allergy (Verified 02/13/24 10:57) Medication List - Last Reconciled 02/13/24 by Prabhjot Gold PA-C blood pressure monitor (Blood Pressure Kit) As directed blood sugar diagnostic (FreeStyle Lite Strips) test one per day/ PRN blood-glucose meter (FreeStyle Lite Meter kit) Test once a day as needed diclofenac sodium 1% 4 grams topical BID fluticasone propionate 50 mcg/actuation (Flonase Allergy Relief) 1 spray intranasal BID 30 days gabapentin 100 mg PO BEDTIME lancets (FreeStyle Lancets) test once a day as needed loratadine 10 mg PO DAILY 30 days magnesium 250 mg PO DAILY metformin ER 500 mg PO BID 90 days metoprolol succinate ER 25 mg PO DAILY 90 days ondansetron 8 mg PO Q8H rosuvastatin 40 mg PO DAILY Tobacco use date assessed: 11/13/23 Fall risk assessment: No Falls in past year Last assessed Fall Risk: 02/13/24 Dental Screening Dental Screen Date: 11/13/23 HPI Follow-up type 2 diabetes HPI Details Patient is a 73-year-old female here today for a follow-up visit Patient has a past medical history significant for type 2 diabetes, hyperlipidemia, hypertension. Breast cancer: Interval history--> Patient did have a swollen right arm and axillary/cervical lymphadenopathy, was referred to Oncology and underwent lymph node biopsy of the right supraclavicular area on 04/23/2023, FNA cytology was read as positive for?malignant cells with necrosis.? Not enough tissue to run additional studies. She started neoadjuvant chemotherapy/immunotherapy with carbo/Taxol weekly with pembrolizumab to be followed by Adriamycin/Cytoxan with pembrolizumab. She started treatment on 05/16/2023. PET-CT performed 12/24/2023 showed FDG avid right breast nodule as well as multiple FDG avid mediastinal, right hilar and bilateral proximal peribronchial lymph node strongly suspicious for metastasis. She now has stage IV metastatic cancer. .. Type 2 diabetes:? Patient's A1c today at 7.1 from 7.7. Her blood sugars have been better controlled. Will continue her current antihyperglycemic regime. Will try to set patient up with an guard range. She will call back to the office to tell him to eye Dr. she would like to see. .. Hyperlipidemia:? Most recent lipid panel has stabilize after starting statin therapy. .. HTN:? Continues manage blood pressure with lifestyle modifications. Was previously on valsartan.? Today's blood pressure in office acceptable and has not been taking blood pressure medication.? Will hold off on continuing blood pressure medication. Plantar fasciitis: Has seen a foot doctor started on a cream that significantly reduce her pain. [facility] Medical History Axillary lymphadenopathy Breast mass, right Diabetes Hypertension Surgical History No pertinent past surgical history Family History Father No problems noted. Mother Cervical cancer Family/Other Mental health disorder Social History Household Members: Children Housing: House Alcohol intake: never Patient Tobacco Use Status: Never used Tobacco e-Cigarette/Vaping Use: Never Used Second Hand Smoke Exposure: No service: No Current occupational status: retired Current occupation: right handed Cognitive needs: No Hearing needs: No Vision needs: Yes Female Reproductive History Menstrual Age of Menarche: 13 Questionnaire PHQ-9 Over the last 2 weeks, how often have you been bothered by any of the following problems? 1. Little interest or pleasure in doing things: not at all 2. Feeling down, depressed, or hopeless: not at all 3. Trouble falling or staying asleep, or sleeping too much: not at all 4. Feeling tired or having little energy: not at all 5. Poor appetite or overeating: not at all 6. Feeling bad about yourself - or that you are a failure or have let yourself or your family down: not at all 7. Trouble concentrating on things, such as reading the newspaper or watching television: not at all 8. Moving or speaking so slowly that other people could have noticed. Or the opposite - being so fidgety or restless that you have been moving around a lot more than usual: not at all 9. Thoughts that you would be better off or of hurting yourself in some way: not at all Total score: 0 Depression Screening Interpretation: Negative Depression Screening Done: Yes 30640 - PHQ-9 Billing: Yes Source: Developed by Drs. Bernardo Murphy, Agatha Estevez, Leo Linares and colleagues, with an educational hernandez from [employer]. Thrive Questionnaire Date Thrive assessed: 11/13/23 SINTIA-7 AMB Questionnaire SINTIA-7 Date SINTIA - 7 assessed: 11/13/23 Source: Developed by Drs. Bernardo Murphy, Agatha Estevez, Leo Linares and colleagues, with an educational hernandez from [employer]. Review of Systems Const Denies headache(s) Eyes Denies loss of vision ENT Denies vertigo, Denies dizziness, Denies headache(s) and Denies sore throat Card Denies chest pain, Denies leg edema and Denies lightheadedness Resp Denies cough, Denies hemoptysis and Denies wheezing GI Denies abdominal pain, Denies melena, Denies constipation, Denies diarrhea and Denies vomiting Denies urinary frequency, Denies dysuria and Denies urinary urgency Musc Denies arthralgias, Denies joint swelling, Denies numbness and Denies tingling Neuro Denies Abnormal speech present, Denies behavioral changes, Denies vertigo, Denies dizziness, Denies headache(s), Denies loss of vision, Denies memory loss, Denies numbness and Denies tingling Psych Denies anxiety, Denies behavioral changes, Denies depression, Denies memory loss and Denies panic attacks Farhat/Lymph Denies easy bleeding and Denies easy bruising Aller/Immun Denies wheezing Physical exam (Primary Care) Vital Signs: Last Vital Signs Pulse 115 H 02/13/24 10:44 BP 118/70 02/13/24 10:44 Pulse Ox 99 02/13/24 10:44 Oxygen Delivery Method Room Air 02/13/24 10:44 BMI result Body Mass Index 24.4 Tobacco/Smoking Status: Tobacco use Status Tobacco use date assessed 11/13/23 02/13/24 10:47 Patient Tobacco Use Status Never used Tobacco 02/13/24 10:47 e-Cigarette/Vaping Use Never Used 02/13/24 10:47 PHQ-9: PHQ-9 Score PHQ-9: Total score 0 02/13/24 11:00 Depression Screening Interpretation: Negative Thrive Assessment: Date of Thrive Assessment Date Thrive assessed 11/13/23 02/13/24 10:47 Const General: healthy appearing, no acute distress, alert and awake Nutritional Appearance: well nourished Orientation/consciousness: oriented to person, oriented to place and oriented to time HENMT Ears: TM's normal bilaterally General nose exam: Normal nasal mucous membranes and turbinates present Eyes Conjunctivae: conjunctivae normal Sclerae: sclerae normal Pupils: Equal, round and reactive pupils present Neck Neck: Yes no lymphadenopathy and Yes no JVD Thyroid: Thyroid normal Carotids: no bruits Resp Effort & Inspection: normal respiratory effort and not tachypneic Auscultation: no crackles, no rales, no rhonchi and no wheezes Cardio Rate: regular rate Rhythm: regular rhythm Heart sounds: no murmurs and normal S1 and S2 GI Palpation (GI): Soft to palpation, nontender, no hepatomegaly and no splenomegaly Auscultation: normal bowel sounds Skin General skin exam: no rashes or lesions noted and dry skin Neuro General: oriented to person, oriented to place and oriented to time Cranial nerves: Yes Equal, round and reactive pupils present Speech: No Abnormal speech present Gait exam (Neuro): Normal gait present Motor exam (neuro): no tremor noted Extrem Other: RIGHT UPPER EXTREMITY EDEMATOUS Right upper extremity: full ROM and edema Left upper extremity: full ROM; no edema Right lower extremity: full ROM; no edema Left lower extremity: full ROM; no edema Psych Mental Status: mental status grossly normal Speech and movement: Normal speech and movement present Affect: normal affect Attitude: cooperative Thought process: Normal thought process present Results AMB Hemoglobin A1c AMB Hemoglobin A1c 7.1 % Last Edit by ABDIRAHMAN Day on 02/13/24 11:01 Results Reviewed Results Reviewed: Laboratory Last Values Hgb A1c (Clinic) 7.1 % (4.0-6.0) H 02/13/24 10:43 Assessment and Plan Assessment & Plan (1) HTN (hypertension): Code(s): I10 - Essential (primary) hypertension Qualifiers: Hypertension type: primary hypertension Qualified Code(s): I10 - Essential (primary) hypertension Plan: Blood pressure acceptable today in office currently lifestyle controlled. Goal blood pressure to be below 140/90 (2) DMII (diabetes mellitus, type 2): Code(s): E11.9 - Type 2 diabetes mellitus without complications Qualifiers: Diabetes mellitus complication status: with hyperglycemia Diabetes mellitus penitentiary insulin use: without penitentiary use Qualified Code(s): E11.65 - Type 2 diabetes mellitus with hyperglycemia Plan: Patient's type 2 diabetes well controlled. A1c is 7.1. Goal A1c is to be below 7.5 due to patient's age and comorbidities. She has been following a diabetic diet. Goal A1c is to be below 7.0 (3) HLD (hyperlipidemia): Code(s): E78.5 - Hyperlipidemia, unspecified Qualifiers: Hyperlipidemia type: mixed hyperlipidemia Qualified Code(s): E78.2 - Mixed hyperlipidemia Plan: Patient most recent fasting lipid panel showing acceptable total cholesterol and LDL. Continues on high-dose statin therapy. Goal LDL to be below 100 (4) Breast cancer: Code(s): C50.919 - Malignant neoplasm of unspecified site of unspecified female breast Qualifiers: Breast location: axillary tail of breast Estrogen receptor status: unspecified Laterality: right Patient sex: female Qualified Code(s): C50.611 - 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 Plan: Continues to follow Oncology and is undergoing chemo treatments. She does have metastatic disease into the axillary lymph nodes. Family does understand she has stage IV metastatic disease and there is no role of surgery at this time. Does have swollen right arm. She denies any pain. She is in good spirits and plans to go to [facility] for a family . Orders: Orders AMB Hemoglobin A1c Today E11.65 - Type 2 diabetes mellitus with hyperglycemia Medications: New blood sugar diagnostic (FreeStyle Lite Strips) test one per day/ PRN 100 ea 3RF E11.65 - Type 2 diabetes mellitus with hyperglycemia, E11.9 - Type 2 diabetes mellitus without complications lancets (FreeStyle Lancets) test once a day as needed 100 ea 3RF E11.65 - Type 2 diabetes mellitus with hyperglycemia, E11.9 - Type 2 diabetes mellitus without complications blood-glucose meter (FreeStyle Lite Meter kit) Test once a day as needed 1 ea 0RF E11.65 - Type 2 diabetes mellitus with hyperglycemia Patient Instructions: Goal: A1c to be below 7.5 Barriers: Adherence to healthy eating habits and physical activity. Coding Level of Care Code Est Pt Level 4 (99040) Diagnoses Primary hypertension I10 Hypertension type: primary hypertension Type 2 diabetes mellitus with hyperglycemia, without long-term current use of insulin E11.65 Diabetes mellitus complication status: with hyperglycemia Diabetes mellitus penitentiary insulin use: without superintendent terminal use Mixed hyperlipidemia E78.2 Hyperlipidemia type: mixed hyperlipidemia 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, unspecified estrogen receptor status C50.611 Breast location: axillary tail of breast Estrogen receptor status: unspecified Laterality: right Patient sex: female
== END 2024-02-13 11:13 | disposition home or self-care (01) ==
PROVIDERS: PCP Physician Assistant; Visit Provider Physician Assistant
DX: I10 Essential (primary) hypertension (principal); E11.65 Type 2 diabetes mellitus with hyperglycemia; E78.2 Mixed hyperlipidemia; C50.611 Malignant neoplasm of 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
CPT/HCPCS: 83036; 99214

== ENCOUNTER 2024-05-19 10:55 | Outpatient (REF) | payer MEDICARE, SELFPAY ==
--- NOTE | ~2024-05-19 | CT_ITS ---
EXAMINATION: CT CHEST WITH CONTRAST CLINICAL INFORMATION: Assess response to treatment, malignant neoplasm of the right breast. COMPARISON: PET/CT of 12/24/[address] scan of 07/12/2023. TECHNIQUE: Multidetector volumetric CT imaging of the chest was obtained after the administration of 65 mL of Omnipaque 350 intravenous contrast without immediate adverse reactions. Axial MIP volume rendering provided. Sagittal and coronal reformatted images were obtained. This CT examination was performed using dose optimization techniques as appropriate, variously including the following: *Automated exposure control *Adjustment of mA and/or kV according to patient size (this includes techniques or standardized protocols for targeted exams where dose is matched to indication/reason for exam; i.e. extremities or head) *Use of iterative reconstruction technique DLP: 176 mGy-cm FINDINGS: LUNGS: Central airways are patent. No bronchial wall thickening appreciated. No bronchiectasis seen. No confluent parenchymal disease is noted. There is a calcified granuloma seen within the right lower lobe. There are some calcifications seen posterior pleural surface of the right lower lobe on image 351 of 452. There is a 3 mm noncalcified nodule seen within the right middle lobe on image [address] series #5. There are scattered sub-4 mm densities seen elsewhere such as within the lingula on image 277 of 452 and within the left lower lobe on image 289 of 452. These appear to have been present on prior CT scan of . MEDIASTINUM: The thyroid gland appears unremarkable other than for a 4 mm nodule within the right lobe which does not require followup. Heart normal size. No pericardial effusion. No thoracic aortic aneurysm or dissection. Port catheter is seen with tip at the cavoatrial junction. No internal mammary lymphadenopathy is appreciated. In the prevascular space, there is an 8 x 6 mm lymph node. Previously, this measured 1.4 x 0.8 cm in size. In the precarinal region, there is again noted to be a 1.2 x 0.8 cm lymph node. On prior study, this measured approximately 1.7 x 1.1 cm in size. There are a couple of lymph nodes next to each other within the aortopulmonic window in combination measuring 1.7 x 0.5 cm in size. On prior PET/CT scan of 12/24/2023, this region measured approximately 2.9 x 1.0 cm in size. No hilar lymphadenopathy is appreciated on today's study. PLEURA: There is no pleural effusion. No pleural mass or thickening. AXILLA: No lymphadenopathy appreciated. Right breast circumscribed density again seen likely related to previous surgery. Left-sided port reservoir in place. UPPER ABDOMEN: Unremarkable. OSSEOUS STRUCTURES: No new or suspicious bony lesion is identified. Multilevel degenerative disc disease is present. CT/CT chest w IV con IMPRESSION: Improvement in metastatic disease, as described, without evidence of progression within the chest. Fleischner guidelines were followed. Electronically signed by: Brown Schneider MD 05/26/2024 11:13 AM EDT
[2024-05-19] MEDS: iohexoL 350 MG/ML 75 ML INFUS..BTL 65 ML IV (11:30)
== END 2024-05-19 10:56 | disposition home or self-care (01) ==
LOC: HO.CT 10:55
PROVIDERS: PCP Physician Assistant; Visit Provider Internal Medicine
DX: C50.919 Malignant neoplasm of unspecified site of unspecified female breast (principal)
CPT/HCPCS: 71260; Q9967

== ENCOUNTER 2024-06-30 12:34 | Outpatient (REF) | payer MEDICARE, SELFPAY ==
--- NOTE | ~2024-06-30 | PE_ITS ---
EXAMINATION: Fluorine-18 FDG PET/CT Scan CLINICAL INDICATION: Subsequent treatment management. Breast cancer, status post chemotherapy. PROCEDURE: 54 minutes following the intravenous administration of 15.2 mCi of fluorine 18 FDG, images from the base of the skull to the mid thighs were obtained using a combined PET/CT scanner with CT scan based attenuation correction. No oral contrast was administered. No intravenous contrast was administered. Transverse, coronal, sagittal, and volume reconstruction projections were obtained. The patient's blood glucose as determined by a finger stick, was 103 mg/dl immediately prior to injection. Total CT exam dose-length product 584.16 mGy-cm * These CT images were obtained using dose optimization techniques as appropriate, variously including the following: Automated exposure control * Adjustment of mA and/or kV according to patient size (this includes techniques or standardized protocols for targeted exams where dose is matched to indication/reason for exam; i.e. extremities or head) * Use of iterative reconstruction technique COMPARISON: The previous PET/CT scan dated 12/24/2023 is available for comparison. CT scan of the chest dated 05/19/2024 is also available for comparison. Less recent CT scan of the abdomen and pelvis dated 03/21/2023 is also available for comparison. FINDINGS: NECK AND VISUALIZED HEAD: No foci of abnormal FDG activity are noted. The distribution of FDG activity is physiological. There is no cervical lymphadenopathy. THORAX: The FDG avid right breast mass visualized on the prior 11/12/[address] scan is again visualized. This is significantly less intensely FDG avid than on the prior study, now showing SUVmax 5.5, slice 82/223 versus SUVmax 7.5 previously. It is not changed in size on the CT images continuing to measure 1.8 x 1.5 cm in largest transverse dimensions and approximately 1.5 cm cephalocaudad. Multiple FDG avid mediastinal, hilar, and proximal peribronchial FDG avid lymph nodes present on the for 11/12/2023 PET/CT scan have all resolved. There are now no foci of abnormal FDG activity in the lungs or mediastinum. There is now no mediastinal, axillary, or supraclavicular lymphadenopathy. There is no pleural or pericardial fluid, or pneumothorax. A left-sided chest port with internal jugular catheter terminating in the superior vena cava is noted. ABDOMEN AND PELVIS: There is FDG of varying intensities present throughout the gastrointestinal tract, most prominently in the left colon, without a suspicious focal component or corresponding CT abnormality, likely physiological. There is diverticulosis without evidence of diverticulitis. The hollow viscera are otherwise unremarkable. There are no foci of abnormal FDG activity in the abdomen or pelvis. The liver, gallbladder, spleen, kidneys, adrenal glands, and pancreas are unremarkable. There is a fluid density left adnexal cyst measuring 4.2 x 3.1 cm in largest transverse dimensions which is markedly FDG photopenic and does not appear significantly changed in size since the earliest available CT scan dated 03/21/2023. The pelvic organs are otherwise unremarkable. There is no retroperitoneal, mesenteric, pelvic or inguinal lymphadenopathy. MUSCULOSKELETAL: There are no foci of abnormal FDG activity in the osseous structures. There is a mild thoracolumbar scoliosis with lumbar convexity to the left. There are mild degenerative changes in the spine but no suspicious sclerotic or lytic lesions are visualized. VASCULAR: Scattered vascular calcifications are present. Reference SUVmax Levels: Mediastinal Blood Pool: 2.0, Slice 66/223 Liver: 3.4, Slice 92/223 PET/PET CT fusion skull to thigh IMPRESSION: 1. An FDG avid right breast mass is again visualized, unchanged in size but significantly less intensely FDG avid. This represents a partial metabolic response to therapy. 2. There has been a complete metabolic response to therapy of multiple FDG avid lymph nodes in the chest. 3. There are no other abnormalities suspicious for metastatic or other malignant lesions. 4. A stable fluid density left adnexal cyst is visualized, and this remains markedly FDG photopenic and is likely benign. Electronically signed by: Errol Mcclelland MD 07/09/2024 11:19 AM EDT
== END 2024-06-30 12:35 | disposition home or self-care (01) ==
LOC: HO.PET 12:34
PROVIDERS: Visit Provider Internal Medicine
DX: Z13.89 Encounter for screening for other disorder (principal)

== ENCOUNTER 2024-07-29 15:09 | Outpatient (AMB) | payer MEDICARE, SELFPAY ==
--- NOTE | 2024-07-29 15:34 | A.OFFPC_ITS ---
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 Accompanied by: Self / Same As Patient Allergies No Known Allergies Allergy (Verified 07/29/24 15:48) Medication List - Last Reconciled 07/29/24 by Prabhjot Gold PA-C blood pressure monitor (Blood Pressure Kit) As directed blood sugar diagnostic (FreeStyle Lite Strips) test one per day/ PRN blood-glucose meter (FreeStyle Lite Meter kit) Test once a day as needed diclofenac sodium 1% 4 grams topical BID fluticasone propionate 50 mcg/actuation (Flonase Allergy Relief) 1 spray intranasal BID 30 days lancets (FreeStyle Lancets) test once a day as needed magnesium 250 mg PO DAILY metformin ER 500 mg PO BID 90 days ondansetron 8 mg PO Q8H polyethylene glycol 3350 (Miralax) 17 grams PO DAILY potassium chloride ER (K-Tab) 20 mEq PO DAILY rosuvastatin 40 mg PO DAILY sennosides (Senokot) 8.6 mg PO BID Tobacco use date assessed: 11/13/23 Fall risk assessment: No Falls in past year Last assessed Fall Risk: 07/29/24 Dental Screening Dental Screen Date: 11/13/23 HPI f/u DMII/ breast cancer HPI Details Patient is a 74-year-old female here today for a follow-up visit Patient has a past medical history significant for type 2 diabetes, hyperlipidemia, hypertension. Breast cancer: Interval history--> Patient did have a swollen right arm and axillary/cervical lymphadenopathy, was referred to Oncology and underwent lymph node biopsy of the right supraclavicular area on 04/23/2023, FNA cytology was read as positive for?malignant cells with necrosis.? Not enough tissue to run additional studies. She started neoadjuvant chemotherapy/immunotherapy with carbo/Taxol weekly with pembrolizumab to be followed by Adriamycin/Cytoxan with pembrolizumab. She started treatment on 05/16/2023. PET-CT performed 12/24/2023 showed FDG avid right breast nodule as well as multiple FDG avid mediastinal, right hilar and bilateral proximal peribronchial lymph node strongly suspicious for metastasis. Patient continues to get chemotherapy 4 times a month. .. Type 2 diabetes:? Today's A1c is 7.2. She continues with metformin 500 b.i.d... Her blood sugars have been better controlled. Will continue her current antihyperglycemic regime. .. Hyperlipidemia:? Most recent lipid panel has stabilize after starting statin therapy. .. HTN:? Continues manage blood pressure with lifestyle modifications. Was previously on valsartan and metoprolol.? Today's blood pressure in office acceptable and has not been taking blood pressure medication.? [facility] Medical History (Updated 07/30/24 @ 07:33 by Prabhjot Gold PA-C) Axillary lymphadenopathy Diabetes Hypertension Surgical History No pertinent past surgical history Family History Father No problems noted. Mother Cervical cancer Family/Other Mental health disorder Social History Household Members: Children Housing: House Alcohol intake: never Patient Tobacco Use Status: Never used Tobacco e-Cigarette/Vaping Use: Never Used Second Hand Smoke Exposure: No service: No Current occupational status: retired Current occupation: right handed Cognitive needs: No Hearing needs: No Vision needs: Yes Female Reproductive History Menstrual Age of Menarche: 13 Questionnaire Thrive Questionnaire Date Thrive assessed: 11/13/23 SINTIA-7 AMB Questionnaire SINTIA-7 Date SINTIA - 7 assessed: 11/13/23 Source: Developed by Drs. Bernardo Murphy, Agatha Estevez, Leo Linares and colleagues, with an educational hernandez from [employer]. Review of Systems Const Denies headache(s) Eyes Denies loss of vision ENT Denies vertigo, Denies dizziness, Denies headache(s) and Denies sore throat Card Denies chest pain, Denies leg edema and Denies lightheadedness Resp Denies cough, Denies hemoptysis and Denies wheezing GI Denies abdominal pain, Denies melena, Denies constipation, Denies diarrhea and Denies vomiting Denies urinary frequency, Denies dysuria and Denies urinary urgency Musc Denies arthralgias, Denies joint swelling, Denies numbness and Denies tingling Neuro Denies Abnormal speech present, Denies behavioral changes, Denies vertigo, Denies dizziness, Denies headache(s), Denies loss of vision, Denies memory loss, Denies numbness and Denies tingling Psych Denies anxiety, Denies behavioral changes, Denies depression, Denies memory loss and Denies panic attacks Farhat/Lymph Denies easy bleeding and Denies easy bruising Aller/Immun Denies wheezing Physical exam (Primary Care) Vital Signs: Last Vital Signs Pulse 103 H 07/29/24 15:38 BP 120/70 07/29/24 15:38 Pulse Ox 99 07/29/24 15:38 Tobacco/Smoking Status: Tobacco use Status Tobacco use date assessed 11/13/23 07/29/24 15:34 Patient Tobacco Use Status Never used Tobacco 07/29/24 15:34 e-Cigarette/Vaping Use Never Used 07/29/24 15:34 Thrive Assessment: Date of Thrive Assessment Date Thrive assessed 11/13/23 07/29/24 15:34 Const General: healthy appearing, no acute distress, alert and awake Nutritional Appearance: well nourished Orientation/consciousness: oriented to person, oriented to place and oriented to time HENMT Ears: TM's normal bilaterally General nose exam: Normal nasal mucous membranes and turbinates present Eyes Conjunctivae: conjunctivae normal Sclerae: sclerae normal Pupils: Equal, round and reactive pupils present Neck Neck: Yes no lymphadenopathy and Yes no JVD Thyroid: Thyroid normal Carotids: no bruits Resp Effort & Inspection: normal respiratory effort and not tachypneic Auscultation: no crackles, no rales, no rhonchi and no wheezes Cardio Rate: regular rate Rhythm: regular rhythm Heart sounds: no murmurs and normal S1 and S2 GI Palpation (GI): Soft to palpation, nontender, no hepatomegaly and no splenomegaly Auscultation: normal bowel sounds Skin General skin exam: no rashes or lesions noted and dry skin Neuro General: oriented to person, oriented to place and oriented to time Cranial nerves: Yes Equal, round and reactive pupils present Speech: No Abnormal speech present Gait exam (Neuro): Normal gait present Motor exam (neuro): no tremor noted Extrem Right upper extremity: full ROM Left upper extremity: full ROM Right lower extremity: full ROM; no edema Left lower extremity: full ROM; no edema Psych Mental Status: mental status grossly normal Speech and movement: Normal speech and movement present Affect: normal affect Attitude: cooperative Thought process: Normal thought process present Office Procedures Flu Questionnaire Does the patient have a severe egg allergy?: No Does the patient have severe life threatening allergies?: No Does the patient have a fever or illness today?: No Has the patient ever had Guillain-[place] Syndrome?: No Has the patient ever had any past reaction to a flu shot?: No Results AMB Hemoglobin A1c AMB Hemoglobin A1c 7.2 % Last Edit by ABDIRAHMAN Day on 07/29/24 15:41 Immunizations Fluarix Triv [id number] (PF) 45 mcg (15 mcg x 3)/0.5 mL IM syringe Performing Provider: Prabhjot Gold PA-C Performing Location: [facility] Administered by: ABDIRAHMAN Day on 07/29/24 15:41 Dose Route Admin Location Dispensed Lot Number Expiration Date NDC Food Quality Tester 0.5 mL IM Left Deltoid 0.5 mL [id number] 03/22/25 [id number] [employer] VIS Given Date VIS Provided VIS Publication Date 07/29/24 Single Vaccine 21 Eligibility Eligibility Date Funding Source Not [facility] Eligible 07/29/24 Private Results Reviewed Results Reviewed: Laboratory Last Values Hgb A1c (Clinic) 7.2 % (4.0-6.0) H 07/29/24 15:34 Coding Level of Care Code Est Pt Level 4 (55133) Diagnoses Type 2 diabetes mellitus with hyperglycemia, without long-term current use of insulin E11.65 Diabetes mellitus complication status: with hyperglycemia Diabetes mellitus senior living insulin use: without senior living use Mixed hyperlipidemia E78.2 Hyperlipidemia type: mixed hyperlipidemia Primary hypertension I10 Hypertension type: primary hypertension Plantar fasciitis, bilateral M72.2 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, unspecified estrogen receptor status C50.611 Breast location: axillary tail of breast Estrogen receptor status: unspecified Patient sex: female Laterality: right Assessment & Plan Assessment & Plan (1) DMII (diabetes mellitus, type 2): Code(s): E11.9 - Type 2 diabetes mellitus without complications Category: Medical Qualifiers: Diabetes mellitus complication status: with hyperglycemia Diabetes mellitus 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 She continues with metformin and has been working on dietary modifications. She would like to continue her current dose of metformin at this time. Goal A1c is to be below 7.0 (2) HLD (hyperlipidemia): Code(s): E78.5 - Hyperlipidemia, unspecified Category: Medical Qualifiers: Hyperlipidemia type: mixed hyperlipidemia Qualified Code(s): E78.2 - Mixed hyperlipidemia Plan: Patient continues with rosuvastatin with outside effect. Advised to get fasting labs done to evaluate her LDL. Goal LDL to be below 100 (3) HTN (hypertension): Code(s): I10 - Essential (primary) hypertension Category: Medical Qualifiers: Hypertension type: primary hypertension Qualified Code(s): I10 - Essential (primary) hypertension Plan: Patient's blood pressure acceptable today in office. She has stopped using metoprolol for some unclear reason. Heart rate seems to be slightly elevated today.. Will hold off on blood pressure medication for now. (4) Plantar fasciitis, bilateral: Code(s): M72.2 - Plantar fascial fibromatosis Category: Medical Plan: Will be following up with Podiatry about her bilateral plantar fasciitis. She reports she has been using topical solution/cream which has been somewhat helpful. (5) Breast cancer: Code(s): C50.919 - Malignant neoplasm of unspecified site of unspecified female breast Category: Medical Qualifiers: Breast location: axillary tail of breast Estrogen receptor status: unspecified Patient sex: female Laterality: right Qualified Code(s): C50.611 - 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 Plan: As per HPI, patient continues to follow Oncology and is undergoing chemotherapy for times a week. She reports the chemotherapy has been working. She continues to have lymphedema over right upper extremity. We did discuss perhaps trying occupational therapy lymphedema massage though patient will like to hold off on this for now. She reports she is in no pain. Orders: Orders AMB Hemoglobin A1c 07/29/24 E11.65 - Type 2 diabetes mellitus with hyperglycemia Influenza [id number] Immunization 07/29/24 Z23 - Encounter for immunization Lipid Panel 07/29/24 E78.2 - Mixed hyperlipidemia Comprehensive [place]. Panel Fast 07/29/24 E11.65 - Type 2 diabetes mellitus with hyperglycemia Complete Blood Count no Diff 07/29/24 E11.65 - Type 2 diabetes mellitus with hyperglycemia Medications: Refilled rosuvastatin 40 mg PO DAILY 90 tabs 1RF E78.2 - Mixed hyperlipidemia metformin ER 500 mg PO BID 180 tabs 1RF 90 days E11.65 - Type 2 diabetes mellitus with hyperglycemia fluticasone propionate 50 mcg/actuation (Flonase Allergy Relief) administer into each nostril 1 spray intranasal BID 16 grams 1RF 30 days J01.10 - Acute frontal sinusitis, unspecified Discontinued metoprolol succinate ER Discontinued Reason: Doctor's Order 25 mg PO DAILY 90 days 90 tabs 1RF R00.0 - Tachycardia, unspecified gabapentin Discontinued Reason: Doctor's Order 100 mg PO BEDTIME 90 caps 1RF M72.2 - Plantar fascial fibromatosis loratadine Discontinued Reason: Doctor's Order 10 mg PO DAILY 30 days 30 tabs 1RF J01.10 - Acute frontal sinusitis, unspecified Patient Instructions: Goal: A1c to be below 7.0 Barriers: Adherence to physical activity and healthy eating habits
[2024-07-29 15:38] VITALS: BP 120/70; PULSE 103; O2SAT 99
== END 2024-07-29 16:34 | disposition home or self-care (01) ==
LOC: HO.HMCH 15:09
PROVIDERS: PCP Physician Assistant; Visit Provider Physician Assistant
DX: E11.65 Type 2 diabetes mellitus with hyperglycemia (principal); C50.611 Malignant neoplasm of 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; E78.2 Mixed hyperlipidemia; I10 Essential (primary) hypertension; M72.2 Plantar fascial fibromatosis

== ENCOUNTER → 2024-07-29 15:09 | Outpatient (BNVA) | payer MEDICARE, SELFPAY | PROVIDERS: PCP Physician Assistant; Visit Provider Physician Assistant | DX: Z23 Encounter for immunization (principal); E11.65 Type 2 diabetes mellitus with hyperglycemia; E78.2 Mixed hyperlipidemia; I10 Essential (primary) hypertension; M72.2 Plantar fascial fibromatosis; C50.611 Malignant neoplasm of 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 | CPT/HCPCS: 83036; 90471; 90656; 99212 ==

== ENCOUNTER 2024-12-01 11:22 | Outpatient (REF) | payer MEDICARE, SELFPAY ==
--- OUTSIDE RECORDS SUMMARY | 2024-12-01 14:03 | XMS_ITS | Clinical Summary ---
Author Organization [facility] Address [address] [place] [address] Care Team Providers Care Cloth Bale Header Name Role Phone Unavailable Primary Care Provider Unavailabl e Source Comments PLEASE NOTE, if this patient is a minor, it may be UNLAWFUL to discuss sensitive information that is contained in these records (such as FAMILY PLANNING, MENTAL HEALTH or SUBSTANCE ABUSE) with the minor patient's parent or other person without the patient's specific authorization.[facility] Social History Tobacco Use Types Packs/Day Years Used Date Smoking Tobacco: Never Assessed Comments Unknown Sex and Gender Information Value Date Recorded Sex Assigned at Not on file Legal Sex Female 11:25 AM PST Gender Identity Not on file Sexual Orientation Not on file Plan of Treatment Upcoming Encounters Date Type Department Care Team (Late st Contact Info) Description 01/15/2025 11:00 AM EDT Office Visit [facility] [address] [place] [id number] Emilia Prajapati [address] [place] [address] Health Maintenance Due Date Last Done Comments Hepatitis C Screening 1950 Tobacco Screening 1950 Hypertension Screening (#1) 1966 Imm-DTaP/Tdap/Td (1 - Tdap) 1967 Imm-Pneumococcal 65+ (1 of 1 - PCV) 1998 Imm-Zoster, Recombinant (1 of 2) 1998 Bone Density Screening 2013 Falls Prevention 2013 [id number] ( - season) 2024 Imm-Influenza (#1) 2024 Alcohol and Drug Screen 09/23/2024 Depression Annual Screen 09/23/2024 Insurance [facility] [place] [id number]
--- OUTSIDE RECORDS SUMMARY | 2024-12-01 14:03 | XMS_ITS | Clinical Summary ---
Author Organization [facility] Address [address] [place] [address] Phone Care Team Providers Care Industrial Relations Commissioner Name Role Phone Prabhjot Gold Primary Care Provider [phone] Allergies No known active allergies Medications cetirizine (ZyrTEC) 10 mg tablet 10 mg. 08/22/20 15 Active diclofenac (VOLTAREN) 1 % topical gel Apply 4 g topically 2 times daily. 01/20/20 24 Active hydrocortisone (ANUSOL-HC) [address] 1 Suppository rectally 2 times daily for 10 days. 08/18/20 18 Active multivitamin (Multiple Vitamins) tablet Take 1 Tab by mouth daily. 12/16/19 14 Active nabumetone (RELAFEN) 500 mg tablet Take 500 mg by mouth 3 times daily (before meals). 12/18/19 18 Active ondansetron ODT (ZOFRAN-ODT) 8 mg disintegrating tablet DISSOLVE 1 TABLET UNDEE THE TONGUE EVERY 8 HOURS 01/10/20 24 Active rosuvastatin (CRESTOR) 40 mg tablet Take 1 Tablet by mouth daily. 12/21/19 24 Active Active Problems Problem Noted Date Diagnosed Date Tumor 09/23/2024 Esophageal reflux 04/14/2018 Hyperlipidemia 04/14/2018 Hypertension 04/14/2018 Internal hemorrhoids 10/16/2016 Diverticulosis 04/13/2016 Venous insufficiency 04/13/2016 Allergic rhinitis 08/22/2015 Encounters Date Type Department Care Team Description 09/23/2024 9:05 PM EST Anesthesia Event [facility] Endoscopy [address] [place] [address] Kaleigh Ruiz MD 09/23/2024 1:11 PM EST - 09/23/2024 11:28 PM EST Emergency [facility] Emergency [address] [place] [id number] Ned Horton MD Foreign body in esophagus, initial encounter (Primary Dx) Discharge Disposition: Home or Self Care from Last 3 Months Immunizations Name Administration Dates Next Due Influenza trivalent, 0.5mL ( Fluad) 65yo and older 08/18/2018,10/15/2017,07/25/2015 Moderna SARS-CoV-2 COVID-19, mRNA, LNP-S, preservative free 10/23/2022 Pneumococcal conjugate 13 va lent (Prevnar 13, PCV13) 2mo and older 08/18/2018 Medical History Medical History Date Comments Allergic rhinitis 08/22/2015 DX:Allergic rh initis Diverticulosis 04/13/2016 DX:Diverticulosi s Esophageal reflux 04/14/2018 DX:Esophageal reflux Hyperlipidemia 04/14/2018 DX:Hyperlipidemi a Hypertension 04/14/2018 DX:Hypertension Internal hemorrhoids 10/16/2016 DX:Internal hemorrhoids Venous insufficiency 04/13/2016 DX:Venous i nsufficiency Family History Medical History Relation Name Comments Colon cancer Father Ovarian cancer Mother Relation Name Status Comments Father Mother Social History Tobacco Use Types Packs/Day Years Used Date Smoking Tobacco: Never Smokeless Tobacco: Never Alcohol Use Standard Drinks/Week Comments No 0 (1 standard drink = 0.6 oz pur e alcohol) Comments Unknown Sex and Gender Information Value Date Recorded Sex Assigned at Not on file Legal Sex Female 11:50 PM EST Gender Identity Not on file Sexual Orientation Not on file Obstetrics History Last Filed Vital Signs Vital Sign Reading Time Taken Comments Blood Pressure 129/72 09/23/2024 10:45 PM EST Pulse 102 09/23/2024 10:45 PM EST Temperature 37.2 ??C (99 ??F) 09/23/2024 10:45 PM EST Respiratory Rate 20 09/23/2024 10:45 PM EST Oxygen Saturation 98% 09/23/2024 10:45 PM EST Inhaled Oxygen Concentration - - Weight 74.8 kg (165 lb) 09/23/2024 1:12 PM EST Height 165.1 cm (5' 5 ) 09/23/2024 1:12 PM EST Body Mass Index 27.46 09/23/2024 1:12 PM EST Plan of Treatment Health Maintenance Due Date Last Done Comments DTaP,Tdap,and Td Vaccines (1 - Tdap) 1967 Zoster Vaccines (1 of 2) 1998 Pneumococcal Vaccine: 50+ Years (2 of 2 - PPSV23) 10/13/2018 08/18/2018 Depression Screening 08/26/2022 Falls Risk Assessment 08/26/2022 Hepatitis C Screening 08/26/2022 Medicare Annual Wellness Visit 08/26/2022 Osteoporosis Screening (Bone Density Screening) 08/26/2022 Social Influencers of Health Screening 08/26/2022 RSV Immunization Patients 60+ Years Old (1 - 1-dose 75+ series) 2023 COVID-19 Vaccine ( season) 2024 10/23/2022, 12/27/2020, 12/06/2020 Cholesterol Screening (Lipid Panel) 09/21/2024 09/21/2019 Hypertension/CHF/CAD Annual BMP Blood Test 09/23/2025 09/23/2024, 09/21/2019 Breast Cancer Screening Discontinued 04/28/2019, 04/25 Influenza Vaccine Completed 07/29/2024, , 07/23/2020, Additional history exists HIB Vaccines Aged Out No longer eligi ble based on patient's age to complete this topic HPV Vaccines Aged Out No longer eligi ble based on patient's age to complete this topic Hepatitis A Vaccines Aged Out No long er eligible based on patient's age to complete this topic Hepatitis B Vaccines Aged Out No long er eligible based on patient's age to complete this topic IPV Vaccines Aged Out No longer eligi ble based on patient's age to complete this topic MMR Vaccines Aged Out No longer eligi ble based on patient's age to complete this topic Meningococcal ACWY Vaccine Aged Out N o longer eligible based on patient's age to complete this topic Meningococcal B Vacine Aged Out No lo nger eligible based on patient's age to complete this topic RSV Immunization Patients Under 20 months Aged Out No longer eligible based on patient's age to complete this topic Varicella Vaccines Aged Out No longer eligible based on patient's age to complete this topic Procedures Procedure Name Priority Date/Time Associated Diagnosis Comments TH AN ENDOTRACHEAL(NO CHARGE) Routine 09/23/2024 9:37 PM EST EGD Routine 09/23/2024 9:[address] NECK SOFT TISSUE WO CONTRAST STAT 09/23/2024 4:17 PM EST XR NECK SOFT TISSUE STAT 09/23/2024 2 :57 PM EST CBC WITH AUTO DIFFERENTIAL STAT 09/23/2024 1:32 PM EST BASIC METABOLIC PANEL STAT 09/23/2024 1:32 PM EST CBC AND DIFFERENTIAL STAT 09/23/2024 1:32 PM EST LIPID PANEL Routine 09/21/2019 [facility] SCREENING DIGITAL Routine 04/28/2019 2:10 PM EDT Encounter for screening mammogram for malignant neoplasm of breast from Last 3 Months or Most Recently Relevant to Health Maintenance Results * TH AN ENDOTRACHEAL(NO CHARGE) (09/23/2024 9:37 PM EST) Kaleigh Rivera MD - 09/23/2024 9:37 PM EST Kaleigh Ruiz MD ? 09/23/2024 ??9:39 PM General Information and Staff Patient location during procedure: OR Anesthesiologist: Kaleigh Ruiz MD Performed by: Kaleigh Ruiz MD Authorized by: Kaleigh Ruiz MD ?? Intubation Airway not difficult Urgency: elective Final Airway Details Successful airway: ETT Cuffed: yes Successful intubation technique: direct laryngoscopy Blade: Loni Blade size: #3 Inital cuff pressure (cm H2O): 22 Measured from: gums Number of attempts at approach: 1Final airway type: endotracheal airway Indications and Patient Condition Indications for airway management: anesthesia us Kaleigh Ruiz MD ANESTHESIA ORDERABLES Final Resu lt * EGD Anesthesia - MAC; [facility] ENDOSCOPY (09/23/2024 9:32 PM EST) Anatomical Region Laterality Modality Other 09/23/2024 8:59 PM EST Impressions 09/23/2024 9:20 PM EST - A chicken bone were found in the esophagus. Removal ? was successful. ? 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 ? - No gross lesions in the entire stomach. ? - Normal examined duodenum. Recommendation: ?- Discharge patient to home. ? - Clear liquid diet today. Narrative 09/23/2024 9:20 PM EST [facility] GI Patient Name: Daniella Hernandez Procedure Date: 09/23/2024 8:59 PM Date of : 1950 Age: 74 Gender: Female Note Status: Finalized Attending MD: Nida Chacon MD, Procedure Date No Time: 09/23/2024 Procedure: ? Upper GI endoscopy Indications: ? Dysphagia, Patient has had dysphagia since eating ? chicken wings. Bone is seen on imaging lodged in the ? upper esophagus. Providers: ? Nida Chacon MD Referring MD: ?KYE Hancock Medicines: ? General Anesthesia Complications: ? No immediate complications. Estimated Blood Loss: ? Estimated blood loss: none. Procedure: ? Pre-Anesthesia Assessment: ? - ASA Grade Assessment: III - A patient with severe ? systemic disease. ? After obtaining informed consent, the endoscope was ? passed under direct vision. Throughout the procedure, ? the patient's blood pressure, pulse, and oxygen ? saturations were monitored continuously.The Olympus ? Gastroscope was introduced through the mouth, and ? advanced to the second part of duodenum. The upper GI ? endoscopy was accomplished without difficulty. The ? patient tolerated the procedure well. Findings: ?A chicken bone was found in the proximal esophagus. ? Removal was accomplished with a rat-toothed forceps. ? 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 ? The exam of the esophagus was otherwise normal. ? No gross lesions were noted in the entire examined ? stomach. ? The cardia and gastric fundus were normal on ? retroflexion. ? The examined duodenum was normal. Procedure Code(s): ? --- Professional --- ? 22866, Esophagogastroduodenoscopy, flexible, ? transoral; with removal of foreign body(s) Diagnosis Code(s): ? --- Professional --- ? R13.10, Dysphagia, unspecified ? T18.198A, Other foreign object in esophagus causing ? other injury, initial encounter CPT copyright 2020 [employer]. All rights reserved. The codes documented in this report are preliminary and upon patient registration manager review may be revised to meet current compliance requirements. Nida Chacon MD 09/23/2024 9:20:39 PM This report has been signed electronically.Nida Chacon MD Number of Addenda: 0 Note Initiated On: 09/23/2024 8:59 PM Scope In: Scope Out: ? Endoscopy Department at [facility] - [address] [place] [address], ? [place] [address] Procedure Note Nida Chacon MD - 09/23/2024 [facility] GI Patient Name: Daniella Hernandez Procedure Date: 09/23/2024 8:59 PM Date of : 1950 Age: 74 Gender: Female Note Status: Finalized Attending MD: Nida Chacon MD, Procedure Date No Time: 09/23/2024 Procedure: Upper GI endoscopy Indications: Dysphagia, Patient has had dysphagia since eating chicken wings. Bone is seen on imaging lodged inthe upper esophagus. Providers: Nida Chacon MD Referring MD: KYE Hancock Medicines: General Anesthesia Complications: No immediate complications. Estimated Blood Loss: Estimated blood loss: none. Procedure: Pre-Anesthesia Assessment: - ASA Grade Assessment: III - A patient with severe systemic disease. After obtaining informed consent, the endoscope was passed under direct vision. Throughout theprocedure, the patient's blood pressure, pulse, and oxygen saturations were monitored continuously.The Olympus Gastroscope was introduced through the mouth, and advanced to the second part of duodenum. The upperGI endoscopy was accomplished without difficulty. The patient tolerated the procedure well. Findings: A chicken bone was found in the proximal esophagus. Removal was accomplished with a rat-toothedforceps. 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 The exam of the esophagus was otherwise normal. No gross lesions were noted in the entire examined stomach. The cardia and gastric fundus were normal on retroflexion. The examined duodenum was normal. Procedure Code(s): --- Professional --- 60095, Esophagogastroduodenoscopy, flexible, transoral; with removal of foreign body(s) Diagnosis Code(s): --- Professional --- R13.10, Dysphagia, unspecified T18.198A, Other foreign object in esophagus causing other injury, initial encounter CPT copyright 2020 [employer]. All rights reserved. The codes documented in this report are preliminary and upon patient registration manager reviewmay be revised to meet current compliance requirements. Nida Chacon MD 09/23/2024 9:20:39 PM This report has been signed electronically.Nida Chacon MD Number of Addenda: 0 Note Initiated On: 09/23/2024 8:59 PM Scope In: Scope Out: Endoscopy Department at [facility] - [address] [place] [id number] IMPRESSION: - A chicken bone were found in the esophagus. Removal was successful. - Ectopic gastric mucosa in the proximalesophagus. - No gross lesions in the entire stomach. - Normal examined duodenum. Recommendation: - Discharge patient to home. - Clear liquid diet today. Nida Chacon MD GI~PROCEDURE ORDERABLES Final Result * CT Neck Soft Tissue wo Contrast (09/23/2024 4:17 PM EST) Anatomical Region Laterality Modality Head and Neck Computed Tomogra phy 09/23/2024 7:03 PM EST Impressions 09/23/2024 7:03 PM EST 1. Linear radiopaque foreign body measuring 1.8 x 0.2 cm present within the esophagus just inferior to the level of the hyoid bone. Recommend correlation clinically. This document has been electronically signed by: Anthony Veronica MD on 09/23/2024 19:03:15 Narrative 09/23/2024 7:[address] soft tissue neck without contrast. COMPARISON: None FINDINGS: Visualized lung apices are clear. Normal thyroid gland. Normal submandibular gland. Normal parotid glands. Orbital soft tissues are unremarkable. Parapharyngeal fat pads are preserved. [place] tonsils are normal in size. No peritonsillar edema. No supraclavicular, jugular chain, submandibular or posterior cervical lymphadenopathy. Normal epiglottis. Visualized portions of the trachea and esophagus are unremarkable. Moderate spondylosis. No acute fracture or suspicious bone lesion. Left-sided chest port line extends into the SVC. Linear radiopaque foreign body measuring 1.8 x 0.2 cm present within the esophagus just inferior to the level of the hyoid bone (series 3, image 73 through 75 and series coronal/601, image 64). Procedure Note Anthony Veronica MD - 09/23/2024 CT soft tissue neck without contrast. COMPARISON: None FINDINGS: Visualized lung apices are clear. Normal thyroid gland. Normal submandibular gland. Normal parotid glands. Orbital soft tissues are unremarkable. Parapharyngeal fat pads are preserved. [place] tonsils are normal in size. No peritonsillar edema. No supraclavicular, jugular chain, submandibular or posterior cervical lymphadenopathy. Normal epiglottis. Visualized portions of the trachea and esophagus are unremarkable. Moderate spondylosis. No acute fracture or suspicious bone lesion. Left-sided chest port line extends into the SVC. Linear radiopaque foreign body measuring 1.8 x 0.2 cm present within the esophagus just inferior to the level of the hyoid bone (series 3, image73 through 75 and series coronal/601, image 64). IMPRESSION: 1. Linear radiopaque foreign body measuring 1.8 x 0.2 cm present within the esophagus just inferior to the level of the hyoid bone. Recommend correlation clinically. This document has been electronically signed by: Anthony Veronica MD on 09/23/2024 19:03:15 [facility] Clifford HAQUE IMG CT PROCEDURES Final Result * XR Neck Soft Tissue (09/23/2024 2:57 PM EST) Anatomical Region Laterality Modality Head and Neck Radiographic Corinne ging 09/23/2024 3:14 PM EST Impressions 09/23/2024 3:16 PM EST No radiopaque foreign body seen within the pharynx or trachea. No prevertebral soft tissue swelling. -------- FINAL REPORT -------- Dictated By: Royal Cruz Dictated Date: 09/23/2024 15:14 ET Assigned Physician: Royal Cruz Reviewed and Electronically Signed By: Royal Cruz Signed Date: 09/23/2024 15:16 ET Workstation ID: [id number] Transcribed By: Self Edit Transcribed Date: 09/23/2024 15:14 ET Narrative 09/23/2024 3:16 PM EST EXAMINATION: Soft tissue neck 2 views. CLINICAL INDICATION: Foreign body suspected. Throughout this complete of eating chicken this morning. Comparison: None. FINDINGS: 2 views soft tissue neck reveal airway to be widely patent. No radiopaque foreign body seen. The prevertebral soft tissues are normal. There is mild ventral spondylosis and upper cervical spine. There is ??left central venous port with its tip not in the field of view. Procedure Note Royal Cruz MD - 09/23/2024 EXAMINATION: Soft tissue neck 2 views. CLINICAL INDICATION: Foreign body suspected. Throughout this complete ofeating chicken this morning. Comparison: None. FINDINGS: 2 views soft tissue neck reveal airway to be widely patent. Noradiopaque foreign body seen. The prevertebral soft tissues are normal.There is mild ventral spondylosis and upper cervical spine. There is leftcentral venous port with its tip not in the field of view. IMPRESSION: No radiopaque foreign body seen within the pharynx or trachea. Noprevertebral soft tissue swelling. -------- FINAL REPORT -------- Dictated By: Royal Cruz Dictated Date: 09/23/2024 15:14 ET Assigned Physician: Royal Cruz Reviewed and Electronically Signed By: Royal Cruz Signed Date: 09/23/2024 15:16 ET Workstation ID: [id number] Transcribed By: Self Edit Transcribed Date: 09/23/2024 15:14 ET Ned Coby Horton MD IMG XR PROCEDURES Final Result * (ABNORMAL) CBC auto differential (09/23/2024 1:32 PM EST) WBC 7.1 4.8 - 10.8 K/mcL LAB HEMETOLOGY METHOD 09/23/2024 1:56 PM [facility] RBC 4.50 3.80 - 4.80 M/mcL LAB HEMETOLOGY METHOD 09/23/2024 1:56 PM [facility] Hemoglobin 12.0 11.5 - 16.0 g/dL LAB HEMETOLOGY METHOD 09/23/2024 1:56 PM [facility] Hematocrit 36.1 35.0 - 47.0 % LAB HEMETOLOGY METHOD 09/23/2024 1:56 PM [facility] MCV 79.5 79.0 - 98.0 FL LAB HEMETOLOGY METHOD 09/23/2024 1:56 PM [facility] MCH 26.4(L) 27.0 - 32.0 pcg LAB HEMETOLOGY METHOD 09/23/2024 1:56 PM [facility] MCHC 33.2 32.0 - 37.0 g/dL LAB HEMETOLOGY METHOD 09/23/2024 1:56 PM [facility] RDW 17.8(H) 11.0 - 15.0 % LAB HEMETOLOGY METHOD 09/23/2024 1:56 PM [facility] Platelets 290 130 - 400 K/mcL LAB HEMETOLOGY METHOD 09/23/2024 1:56 PM [facility] MPV 9.3 7.0 - 11.0 FL LAB HEMETOLOGY METHOD 09/23/2024 1:56 PM [facility] NRBC 0.0 <1.0 % LAB HEMETOLOGY METHOD 09/23/2024 1:56 PM [facility] NRBC Absolute 0.00 <0.10 K/mcL LAB HEMETOLOGY METHOD 09/23/2024 1:56 PM [facility] Neutrophils Relative 51.9 % LAB HEMETOLOGY METHOD 09/23/2024 1:56 PM [facility] Lymphocytes Relative 43.9 % LAB HEMETOLOGY METHOD 09/23/2024 1:56 PM [facility] Monocytes Relative 2.1 % LAB HEMETOLOGY METHOD 09/23/2024 1:56 PM [facility] Eosinophils Relative 1.3 % LAB HEMETOLOGY METHOD 09/23/2024 1:56 PM [facility] Basophils Relative 0.4 % LAB HEMETOLOGY METHOD 09/23/2024 1:56 PM [facility] Immature Granulocytes Relative 0.4 % LAB HEMETOLOGY METHOD 09/23/2024 1:56 PM [facility] Neutrophils Absolute 3.70 1.50 - 7.00 K/mcL LAB HEMETOLOGY METHOD 09/23/2024 1:56 PM [facility] Lymphocytes Absolute 3.13 1.00 - 5.00 K/mcL LAB HEMETOLOGY METHOD 09/23/2024 1:56 PM EST [facility] Monocytes Absolute 0.15(L) 0.20 - 1.00 K/mcL LAB HEMETOLOGY METHOD 09/23/2024 1:56 PM EST [facility] Eosinophils Absolute 0.09 0.00 - 0.50 K/[facility] LAB HEMETOLOGY METHOD 09/23/2024 1:56 PM EST [facility] Basophils Absolute 0.03 0.00 - 0.20 K/[facility] LAB HEMETOLOGY METHOD 09/23/2024 1:56 PM [facility] Immature Granulocytes Absolute 0.03 0.00 - 0.03 K/mcL LAB HEMETOLOGY METHOD 09/23/2024 1:56 PM [facility] Blood Venous blood specimen / Unknown Venipuncture / Unknown 09/23/2024 1:32 PM EST 09/23/2024 1:45 PM EST Ned Horton MD LAB BLOOD ORDERABLES Final Resu lt [facility] [address] [place] [address], * (ABNORMAL) Basic metabolic panel (09/23/2024 1:32 PM EST) Sodium 139 133 - 145 mmol/L LAB CHEMISTRY METHOD 09/23/2024 2:06 PM EST [facility] Potassium 3.4(L) 3.5 - 5.5 mmol/L LAB CHEMISTRY METHOD 09/23/2024 2:06 PM [facility] Chloride 106 96 - 110 mmol/L LAB CHEMISTRY METHOD 09/23/2024 2:06 PM [facility] CO2 26 21 - 32 mmol/L LAB CHEMISTRY METHOD 09/23/2024 2:06 PM [facility] Anion Gap 7 3 - 11 LAB CHEMISTRY METHOD 09/23/2024 2:06 PM [facility] Glucose 139(H) 70 - 100 mg/dL LAB CHEMISTRY METHOD 09/23/2024 2:06 PM [facility] BUN 7 5 - 25 mg/dL LAB CHEMISTRY METHOD 09/23/2024 2:06 PM [facility] Creatinine 0.87 0.50 - 1.10 mg/dL LAB CHEMISTRY METHOD 09/23/2024 2:06 PM [facility] eGFR 69 >=60 mL/min/1. 73m2 LAB CHEMISTRY METHOD 09/23/2024 2:06 PM [facility] Comment:Calculation based on the??Chronic Kidney Disease Epidemiology Collaboration (CKD-EPI) equation refit??without adjustment for race. BUN/Creatinine Ratio 8.0 LAB CHEMISTRY METHOD 09/23/2024 2:06 PM [facility] Calcium 9.3 8.5 - 10.5 mg/dL LAB CHEMISTRY METHOD 09/23/2024 2:06 PM [facility] Blood Venous blood specimen / Unknown Venipuncture / Unknown 09/23/2024 1:32 PM EST 09/23/2024 1:45 PM EST Ned Horton MD LAB BLOOD ORDERABLES Final Resu lt [facility] [address] [place] [address], * (ABNORMAL) Lipid panel (09/21/2019) LDL/HDL Ratio 4 0 - 4 Triglycerides 216(A) 0 - 150 mg/dL Cholesterol 201(A) 0 - 200 mg/dL HDL 49 >=40 mg/dL LDL Cholesterol 109(A) 0 - 100 mg/dL Blood Venous blood specimen / Unknown us Historical Provider LAB BLOOD ORDERABLES Graciela dhaliwal Result * [facility] SCREENING DIGITAL (04/28/2019 2:10 PM EDT) Anatomical Region Laterality Modality Mammography 04/28/2019 9:56 AM EDT Narrative 04/28/2019 2:10 PM EDT [facility] Diagnostic Imaging Department [address] [place] [id number] Patient: ??DANIELLA HERNANDEZ ?/Age/Sex: 1950 - 68 - F Unit#: ??[id number] ? Location/Status: ??SPDIMAM/REG CLI ? Mnemonic/Ordering Site: ??DIGSC/SPMAM Ordering Physician: ??FRANCISCA REVELES MD [facility] Screening Digital - 04/28/19 - 1035 EXAM: [facility] Screening Digital EXAM DATE AND TIME: 04/28/2019 10:36 AM HISTORY: ??Screening. Excisional biopsy of the right breast in the , pathology benign. Maternal cousin had breast carcinoma. COMPARISON: ??04/25/18, 05/02/16, 03/15/14, 02/14/11 TECHNIQUE: CC and MLO views of both breasts were obtained using full field digital mammography. Bilateral digital breast tomosynthesis was performed in the MLO projection. Computer aided detection with the [employer] 7.2-H was employed. TISSUE DENSITY: c. The breasts are heterogeneously dense, which may obscure small masses. FINDINGS: No suspicious masses, grouped microcalcifications, or areas of architectural distortion are seen. A group of coarse, benign calcifications is again seen in the anterior right breast. The skin and vascularity are unremarkable. IMPRESSION: Stable mammographic appearance of the breasts. ??No evidence of malignancy is seen. A negative mammogram in the presence of a clinically suspicious palpable abnormality does not preclude the possibility of malignancy or alter the indications for biopsy. BI-RADS: ??Category 2: Benign RECOMMENDATION(S): 1: Routine screening mammogram BILATERAL in 1 year. [id number], [id number], [id number] Dictating Physician: ??ALAINA UDMONT MD Electronically Signed by: ??ALAINA DUMONT MD Dic Date/Time: ??04/28/19 1409 Sign date/Time: ??04/28/19 1410 Procedure Note Alaina Dumont - 09/12/2022 [facility] Diagnostic Imaging Department [address] [place] [address] Patient: DANIELLA HERNANDEZ D.O.B./Age/Sex: 1950 68 - F Unit#: [id number] Location/Status: [facility] CLI Mnemonic/Ordering Site: [facility] Ordering Physician: FRANCISCA REVELES MD [facility] Screening Digital - 04/28/19 - 1035 [facility]AM: [facility] [facility] Screening Digital EXAM DATE AND TIME: 04/28/2019 10:36 AM HISTORY: Screening. Excisional biopsy of the right breast in [id number], pathology benign. Maternal cousin had breast carcinoma. COMPARISON: 04/25/18, 05/02/16, 03/15/14, 02/14/11 TECHNIQUE: CC and MLO views of both breasts were obtained using fullfield digital mammography. Bilateral digital breast tomosynthesis was performedin the MLO projection. Computer aided detection with the Zafgen.2-Synchroas employed. TISSUE DENSITY: c. The breasts are heterogeneously dense, which mayobscure small masses. FINDINGS: No suspicious masses, grouped microcalcifications, or areas ofarchitectural distortion are seen. A group of coarse, benign calcifications is againseen in the anterior right breast. The skin and vascularity are unremarkable. IMPRESSION: Stable mammographic appearance of the breasts. No evidence of malignancyis seen. A negative mammogram in the presence of a clinically suspicious palpable abnormality does not preclude the possibility of malignancy or alter the indications for biopsy. BI-RADS: Category 2: Benign RECOMMENDATION(S): 1: Routine screening mammogram BILATERAL in 1 year. 46377, 48120 3342F, 7025F Dictating Physician: ALAINA DUMONT MD Electronically Signed by: ALAINA DUMONT MD Dic Date/Time: 04/28/19 1409 Sign date/Time: 04/28/19 1410 Francisca Reveles MD IMG BI PROCEDURES Final Result from Last 3 Months or Most Recently Relevant to Health Maintenance Insurance [facility] MEDICARE Care Teams Industrial Relations Commissioner Relationship Specialty Start Date End Date Prabhjot Gold PA PCP - General 11/14/23
== END 2024-12-01 11:23 | disposition home or self-care (01) ==
LOC: HO.PET 11:22
PROVIDERS: PCP Physician Assistant; Visit Provider Internal Medicine
DX: Z13.89 Encounter for screening for other disorder (principal)

== ENCOUNTER 2025-03-10 10:20 | Outpatient (AMB) | payer MEDICARE, SELFPAY ==
--- NOTE | 2025-03-10 10:25 | MHC.PC.OV ---
Vital Signs 03/10/25 10:26 Height 5 ft 4 in Weight 143 lb 2 oz BMI 24.6 BP 110/64 Blood Pressure Location Lt brachial Position Sitting Pulse 92 Pulse Source Pulse Oximeter Temp 97.3 F Temp Source Temporal Artery Scan Pulse Oximetry (%) 100 Oxygen Delivery Method Room Air Intake Visit Reasons: f/u DMII/HTN Mail Messenger Contractor Required: No Accompanied by: Self / Same As Patient Allergies No Known Allergies Allergy (Verified 03/10/25 10:36) Medication List - Last Reconciled 03/10/25 by Prabhjot Gold PA-C blood pressure monitor (Blood Pressure Kit) As directed blood sugar diagnostic (FreeStyle Lite Strips) test one per day/ PRN blood-glucose meter (FreeStyle Lite Meter kit) Test once a day as needed diclofenac sodium 1% 4 grams topical BID fluticasone propionate 50 mcg/actuation (Flonase Allergy Relief) 1 spray intranasal BID 30 days gabapentin 600 mg PO guaifenesin ER (Mucinex) 600 mg PO BID 7 days lancets (FreeStyle Lancets) test once a day as needed magnesium 250 mg PO DAILY metformin ER 500 mg PO BID 90 days ondansetron 8 mg PO Q8H polyethylene glycol 3350 (Miralax) 17 grams PO DAILY potassium chloride ER (K-Tab) 20 mEq PO DAILY rosuvastatin 40 mg PO DAILY sennosides (Senokot) 8.6 mg PO BID Tobacco use date assessed: 03/10/25 Fall risk assessment: No Falls in past year Last assessed Fall Risk: 03/10/25 Dental Screening Dental Screen Date: 03/10/25 Did you have a dental visit in the last 12 months?: No Did you have a dental problem in the last 6 months where you did not have access to dental care?: No Was dental information given to patient?: Patient has dentist HPI f/u DMII/HTN HPI Details Patient is a 74-year-old female here today for a follow-up visit Patient has a past medical history significant for type 2 diabetes, hyperlipidemia, hypertension. Breast cancer: Interval history--> Patient did have a swollen right arm and axillary/cervical lymphadenopathy, was referred to Oncology and underwent lymph node biopsy of the right supraclavicular area on 04/23/2023, FNA cytology was read as positive for?malignant cells with necrosis.? Not enough tissue to run additional studies. She started neoadjuvant chemotherapy/immunotherapy with carbo/Taxol weekly with pembrolizumab to be followed by Adriamycin/Cytoxan with pembrolizumab. She started treatment on 05/16/2023. PET-CT performed 12/24/2023 showed FDG avid right breast nodule as well as multiple FDG avid mediastinal, right hilar and bilateral proximal peribronchial lymph node strongly suspicious for metastasis. The breast mass does seem to be enlarging so radical mastectomy has been considered. Chemo has been stopped. .. Type 2 diabetes:? . She continues with metformin 500 b.i.d... Her blood sugars have been better controlled. Will continue her current antihyperglycemic regime. .. Hyperlipidemia:? Most recent lipid panel has stabilize after starting statin therapy. .. HTN:? Continues manage blood pressure with lifestyle modifications. Was previously on valsartan and metoprolol.? Today's blood pressure in office acceptable and has not been taking blood pressure medication.? [facility] Medical History (Updated 10/29/24 @ 16:43 by Prabhjot Gold PA-C) Cough Axillary lymphadenopathy Diabetes Hypertension Surgical History No pertinent past surgical history Family History Father No problems noted. Mother Cervical cancer Family/Other Mental health disorder Social History Household Members: Children Housing: House Alcohol intake: never Patient Tobacco Use Status: Never used Tobacco e-Cigarette/Vaping Use: Never Used Second Hand Smoke Exposure: No service: No Current occupational status: retired Current occupation: right handed Cognitive needs: No Hearing needs: No Vision needs: Yes Female Reproductive History Menstrual Age of Menarche: 13 Questionnaire PHQ-9 Over the last 2 weeks, how often have you been bothered by any of the following problems? 1. Little interest or pleasure in doing things: nearly every day 2. Feeling down, depressed, or hopeless: not at all 3. Trouble falling or staying asleep, or sleeping too much: not at all 4. Feeling tired or having little energy: not at all 5. Poor appetite or overeating: not at all 6. Feeling bad about yourself - or that you are a failure or have let yourself or your family down: not at all 7. Trouble concentrating on things, such as reading the newspaper or watching television: not at all 8. Moving or speaking so slowly that other people could have noticed. Or the opposite - being so fidgety or restless that you have been moving around a lot more than usual: not at all 9. Thoughts that you would be better off or of hurting yourself in some way: not at all Total score: 3 Depression Screening Interpretation: Positive Depression Screening Done: Yes 20742 - PHQ-9 Billing: Yes Source: Developed by Drs. Bernardo Murphy, Agatha Estevez, Leo Linares and colleagues, with an educational hernandez from [employer]. Thrive Questionnaire Date Thrive assessed: 03/10/25 I am a: Patient What is your living situation today?: I have a steady place to live Within the past 12 months, did the food you bought not last and you didn't have the money to get more?: I choose not to answer this question Within the past 12 months, did you worry whether your food would run out before you got money to buy more?: I choose not to answer this question Do you have trouble paying for medicines?: Yes Do you have trouble getting transportation to medical appointments?: No Do you have trouble paying your heating and electricity bill?: Yes Do you have trouble taking care of your child, family member or friend?: No Do you have trouble with day-to-day activities such as bathing, preparing meals, shopping, managing finances, etc.?: No Are you currently unemployed and looking for a job?: No Are you interested in more education?: No Please select the resources that you would like help with: None Currently or been in a relationship where the following occur: I choose not to answer THRIVE Score: 1 AUDIT C Alcohol Use Questionnaire (AUDIT-C) 1. How often do you have a drink containing alcohol?: Never 3. How often do you have six or more drinks on one occasion?: Never Total Score: 0 SINTIA-7 AMB Questionnaire SINTIA-7 Date SINTIA - 7 assessed: 03/10/25 Feeling nervous, anxious, or on edge: 0 = Not at all Not being able to stop or control worryin = Not at all Worrying too much about different things: 0 = Not at all Trouble relaxin = Not at all Being so restless that it is hard to sit still: 0 = Not at all Becoming easily annoyed or irritable: 0 = Not at all Feeling afraid as if something awful might happen: 0 = Not at all Total SINTIA-7 score (0-4 normal; 5-9 mild; 10-14 moderate; 15-21 severe): 0 Source: Developed by Drs. Bernardo Murphy, Agatha Estevez, Leo Linares and colleagues, with an educational hernandez from [employer]. SINTIA-7 Assessment Billing SINTIA-7 Assessment Tool: SINTIA-7 Assessment 25317 Review of Systems Const Denies headache(s) Eyes Denies loss of vision ENT Denies vertigo, Denies dizziness, Denies headache(s) and Denies sore throat Card Denies chest pain, Denies leg edema and Denies lightheadedness Resp Denies cough, Denies hemoptysis and Denies wheezing GI Denies abdominal pain, Denies melena, Denies constipation, Denies diarrhea and Denies vomiting Denies urinary frequency, Denies dysuria and Denies urinary urgency Musc Denies arthralgias, Denies joint swelling, Denies numbness and Denies tingling Neuro Denies Abnormal speech present, Denies behavioral changes, Denies vertigo, Denies dizziness, Denies headache(s), Denies loss of vision, Denies memory loss, Denies numbness and Denies tingling Psych Denies anxiety, Denies behavioral changes, Denies depression, Denies memory loss and Denies panic attacks Farhat/Lymph Denies easy bleeding and Denies easy bruising Aller/Immun Denies wheezing Physical exam (Primary Care) Vital Signs: Last Vital Signs Temp 97.3 F 03/10/25 10:26 Pulse 92 03/10/25 10:26 BP 110/64 03/10/25 10:26 Pulse Ox 100 03/10/25 10:26 Oxygen Delivery Method Room Air 03/10/25 10:26 BMI result Body Mass Index 24.6 Tobacco/Smoking Status: Tobacco use Status Tobacco use date assessed 11/13/23 03/10/25 10:27 Patient Tobacco Use Status Never used Tobacco 03/10/25 10:27 e-Cigarette/Vaping Use Never Used 03/10/25 10:27 PHQ-9: PHQ-9 Score PHQ-9: Total score 3 03/10/25 10:27 Depression Screening Interpretation: Positive Thrive Assessment: Date of Thrive Assessment Date Thrive assessed 03/10/25 03/10/25 10:27 Currently or been in a relationship where the following occur: I choose not to answer Const General: healthy appearing, no acute distress, alert and awake Nutritional Appearance: well nourished Orientation/consciousness: oriented to person, oriented to place and oriented to time HENMT Ears: TM's normal bilaterally General nose exam: Normal nasal mucous membranes and turbinates present Eyes Conjunctivae: conjunctivae normal Sclerae: sclerae normal Pupils: Equal, round and reactive pupils present Neck Neck: Yes no lymphadenopathy and Yes no JVD Thyroid: Thyroid normal Carotids: no bruits Resp Effort & Inspection: normal respiratory effort and not tachypneic Auscultation: no crackles, no rales, no rhonchi and no wheezes Cardio Rate: regular rate Rhythm: regular rhythm Heart sounds: no murmurs and normal S1 and S2 GI Palpation (GI): Soft to palpation, nontender, no hepatomegaly and no splenomegaly Auscultation: normal bowel sounds Skin General skin exam: no rashes or lesions noted and dry skin Neuro General: oriented to person, oriented to place and oriented to time Cranial nerves: Yes Equal, round and reactive pupils present Speech: No Abnormal speech present Gait exam (Neuro): Normal gait present Motor exam (neuro): no tremor noted Extrem Other: RIGHT UPPER EXTREMITY EDEMATOUS Right upper extremity: full ROM Left upper extremity: full ROM Right lower extremity: full ROM; no edema Left lower extremity: full ROM; no edema Psych Mental Status: mental status grossly normal Speech and movement: Normal speech and movement present Affect: normal affect Attitude: cooperative Thought process: Normal thought process present Coding Level of Care Code Est Pt Level 4 (17763) Diagnoses Type 2 diabetes mellitus with hyperglycemia, without long-term current use of insulin E11.65 Diabetes mellitus long term care social worker insulin use: without usp use Diabetes mellitus complication status: with hyperglycemia Mixed hyperlipidemia E78.2 Hyperlipidemia type: mixed hyperlipidemia Primary hypertension I10 Hypertension type: primary hypertension 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, unspecified estrogen receptor status C50.611 Breast location: axillary tail of breast Estrogen receptor status: unspecified Patient sex: female Laterality: right Additional Codes SINTIA-7 Assessment Billing - SINTIA-7 Assessment Tool: SINTIA-7 Assessment 66794 ([id number]) PHQ-9 - 71365 - PHQ-9 Billing: Yes ([id number]) Assessment & Plan Assessment & Plan (1) DMII (diabetes mellitus, type 2): Code(s): E11.9 - Type 2 diabetes mellitus without complications Category: Medical Qualifiers: Diabetes mellitus usp insulin use: without long term care social worker use Diabetes mellitus complication status: with hyperglycemia Qualified Code(s): E11.65 - Type 2 diabetes mellitus with hyperglycemia Plan: Patient's type 2 diabetes now well controlled with A1c is 6.2. She continues with metformin and has been working on dietary modifications. She would like to continue her current dose of metformin at this time. Goal A1c is to be below 7.0 (2) HLD (hyperlipidemia): Code(s): E78.5 - Hyperlipidemia, unspecified Category: Medical Qualifiers: Hyperlipidemia type: mixed hyperlipidemia Qualified Code(s): E78.2 - Mixed hyperlipidemia Plan: Patient continues with rosuvastatin with outside effect. Advised to get fasting labs done to evaluate her LDL. Goal LDL to be below 100 (3) HTN (hypertension): Code(s): I10 - Essential (primary) hypertension Category: Medical Qualifiers: Hypertension type: primary hypertension Qualified Code(s): I10 - Essential (primary) hypertension Plan: Patient's blood pressure acceptable today in office. Goal blood pressures to be below 140/90 Will hold off on blood pressure medication for now. 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 She will be doing this mastectomy in [place] this month.. She continues to have lymphedema over right upper extremity.
[2025-03-10 10:26] VITALS: BP 110/64; PULSE 92; TEMP 36.3; O2SAT 100; BMI 24.6
--- OUTSIDE RECORDS SUMMARY | 2025-03-10 11:43 | XMS_ITS | Clinical Summary ---
Author Organization [address] [facility] Address [address] [place] [address] Phone Care Team Providers Care Charge Master Coordinator Name Role Phone Prabhjot Gold Primary Care Provider Allergies No known active allergies Medications cetirizine [...] 04/13/2016 Venous insufficiency 04/13/2016 Allergic rhinitis 08/22/2015 Immunizations Name Administration Dates Next Due Influenza [...] 102 09/23/2024 10:45 PM EST Temperature 37.2 C (99 F) 09/23/2024 10:45 PM EST Respiratory Rate 20 [...] 50+ Years (2 of 2 - PPSV23) 08/18/2019 08/18/2018 Depression Screening 08/26/2022 Falls Risk Assessment 08/26/2022 Hepatitis C Screening 08/26/2022 Medicare Annual Wellness Visit 08/26/2022 Osteoporosis Screening (Bone Density Screening) 08/26/2022 Social Influencers of Health Screening 08/26/2022 RSV Immunization Adult Patients (1 - 1-dose 75+ series) 2023 COVID-19 [...] age to complete this topic Meningococcal B Vaccine Aged Out No l onger eligible based on patient's age to complete this topic RSV Immunization Patients Under 20 months Aged Out No longer eligible based on patient's age to complete this topic Varicella Vaccines Aged Out No longer eligible based on patient's age to complete this topic Procedures Procedure Name Priority Date/Time Associated Diagnosis Comments BASIC METABOLIC PANEL STAT 09/23/2024 1:32 PM EST LIPID PANEL Routine 09/21/2019 STALIN SCREENING DIGITAL Routine 04/28/2019 2:10 PM EDT Encounter for screening mammogram for malignant neoplasm of breast from Last 3 Months or Most Recently Relevant to Health Maintenance Results * (ABNORMAL) Basic metabolic panel (09/23/2024 1:32 PM EST) Sodium 139 133 - 145 mmol/L LAB CHEMISTRY METHOD 09/23/2024 2:06 PM [facility] Potassium 3.4(L) 3.5 - 5.5 mmol/L LAB CHEMISTRY METHOD 09/23/2024 2:06 PM [facility] Chloride 106 96 - 110 mmol/L LAB CHEMISTRY METHOD 09/23/2024 2:06 PM [facility] CO2 26 21 - 32 mmol/L LAB CHEMISTRY METHOD 09/23/2024 2:06 PM [facility] Anion Gap 7 3 - 11 LAB CHEMISTRY METHOD 09/23/2024 2:06 PM [facility] Glucose 139(H) 70 - 100 mg/dL LAB CHEMISTRY METHOD 09/23/2024 2:06 PM [facility] BUN 7 5 - 25 mg/dL LAB CHEMISTRY METHOD 09/23/2024 2:06 PM [facility] Creatinine 0.87 0.50 - 1.10 mg/dL LAB CHEMISTRY METHOD 09/23/2024 2:06 PM [facility] eGFR 69 >=60 mL/min/1. 73m2 LAB CHEMISTRY METHOD 09/23/2024 2:06 PM [facility] Comment:Calculation based on the Chronic Kidney Disease Epidemiology Collaboration (CKD-EPI) equation refit without adjustment for race. BUN/Creatinine Ratio 8.0 LAB CHEMISTRY METHOD 09/23/2024 2:06 PM [facility] Calcium 9.3 8.5 - 10.5 mg/dL LAB CHEMISTRY METHOD 09/23/2024 2:06 PM [facility] Blood Venous blood specimen / Unknown Venipuncture / Unknown 09/23/2024 1:32 PM EST 09/23/2024 1:45 PM EST Ned Horton MD LAB BLOOD ORDERABLES Final Resu lt [facility] [address] [place] [address], * (ABNORMAL) Lipid panel (09/21/2019) LDL/HDL Ratio 4 0 - 4 Triglycerides 216(A) 0 - 150 mg/dL Cholesterol 201(A) 0 - 200 mg/dL HDL 49 >=40 mg/dL LDL Cholesterol 109(A) 0 - 100 mg/dL Blood Venous blood specimen / Unknown us Historical Provider LAB BLOOD ORDERABLES Graciela dhaliwal Result * STALIN SCREENING DIGITAL (04/28/2019 2:10 PM EDT) Anatomical Region Laterality Modality Mammography 04/28/2019 9:56 AM EDT Narrative 04/28/2019 2:10 PM EDT [facility] Diagnostic Imaging Department [address], [place] [id number] Patient: HERNANDEZDANIELLA D.O.B./Age/Sex: 1950 - 68 - F Unit#: [id number] Location/Status: SPDIMAM/REG CLI Mnemonic/Ordering Site: DIGSC/SPMAM Ordering Physician: FRANCSICA REVELES MD [facility] Screening Digital - 04/28/19 - 1035 EXAM: [facility] Screening Digital EXAM DATE AND TIME: 04/28/2019 10:36 AM HISTORY: Screening. Excisional biopsy of the right breast in the , pathology benign. Maternal cousin had breast carcinoma. COMPARISON: 04/25/18, 05/02/16, 03/15/14, 02/14/11 TECHNIQUE: CC and MLO views of both breasts were obtained using full field digital mammography. Bilateral digital breast tomosynthesis was performed in the MLO projection. Computer aided detection with the AbraResto 7.2-H was employed. TISSUE DENSITY: c. The breasts are heterogeneously dense, which may obscure small masses. FINDINGS: No suspicious masses, grouped microcalcifications, or areas of architectural distortion are seen. A group of coarse, benign calcifications is again seen in the anterior right breast. The skin and vascularity are unremarkable. IMPRESSION: Stable mammographic appearance of the breasts. No evidence of malignancy is seen. A negative mammogram in the presence of a clinically suspicious palpable abnormality does not preclude the possibility of malignancy or alter the indications for biopsy. BI-RADS: Category 2: Benign RECOMMENDATION(S): 1: Routine screening mammogram BILATERAL in 1 year. 42247, 51777 3342F, 7025F Dictating Physician: ALAINA DUMONT MD Electronically Signed by: ALAINA DUMONT MD Dic Date/Time: 04/28/19 1409 Sign date/Time: 04/28/19 1410 Procedure Note Alaina Dumont - 09/12/2022 [facility] Diagnostic Imaging Department [address] [place], [place] [id number] Patient: DANIELLA HERNANDEZ/Age/Sex: 1950 - 68 - F Unit#: [id number] Location/Status: [facility]/REG CLI Mnemonic/Ordering Site: [facility] Ordering Physician: FRANCISCA REVELES MD [facility] Screening Digital - 04/28/19 - 1035 EXAM: [facility] Screening Digital EXAM DATE AND TIME: 04/28/2019 10:36 AM HISTORY: Screening. Excisional biopsy of the right breast in [id number]'s, pathology benign. Maternal cousin had breast carcinoma. COMPARISON: 04/25/18, 05/02/16, 03/15/14, 02/14/11 TECHNIQUE: CC and MLO views of both breasts were obtained using fullfield digital mammography. Bilateral digital breast tomosynthesis was performedin the MLO projection. Computer aided detection with the AbraResto 7.2-BitePalas employed. TISSUE DENSITY: c. The breasts are [...] Routine screening mammogram BILATERAL in 1 year. 38982, 38727 3342F, 7025F Dictating Physician: ALAINA DUMONT MD Electronically Signed by: ALAINA DUMONT MD Dic Date/Time: 04/28/19 1409 Sign date/Time: 04/28/19 1410 Francisca Reveles MD IMG BI PROCEDURES Final Result from Last 3 Months or Most Recently Relevant to Health Maintenance Insurance [employer] MEDICARE Care Teams Charge Master Coordinator Relationship Specialty Start Date End Date Prabhjot Gold PA PCP - General 11/14/23
== END 2025-03-10 11:26 | disposition home or self-care (01) ==
LOC: HO.HMCH 10:21
PROVIDERS: PCP Physician Assistant; Visit Provider Physician Assistant
DX: E11.65 Type 2 diabetes mellitus with hyperglycemia (principal); E78.2 Mixed hyperlipidemia; I10 Essential (primary) hypertension; C50.611 Malignant neoplasm of 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

== ENCOUNTER → 2025-03-10 10:20 | Outpatient (BNVA) | payer MEDICARE, SELFPAY | PROVIDERS: PCP Physician Assistant; Visit Provider Physician Assistant | DX: E11.65 Type 2 diabetes mellitus with hyperglycemia (principal); E78.2 Mixed hyperlipidemia; I10 Essential (primary) hypertension; C50.611 Malignant neoplasm of 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 | CPT/HCPCS: 83036; 96127; 99212 ==

== ENCOUNTER 2025-03-11 15:03 | Outpatient (AMB) | payer MEDICARE, SELFPAY ==
--- NOTE | 2025-03-11 15:04 | A.OFFPC_ITS ---
Intake Visit Reasons: Surgery discussion Intake Note: Telehealth call with son to discuss with PCP regarding the patient?s recent diagnosis and a possible upcoming surgery in [place], as the patient will be staying with her other son. He would like the provider?s input on the situation. Oracle Architect Required: No Accompanied by: Son Allergies No Known Allergies Allergy (Verified 03/11/25 15:05) Tobacco use date assessed: 03/10/25 Fall risk assessment: No Falls in past year Last assessed Fall Risk: 03/11/25 Dental Screening Dental Screen Date: 03/10/25 HPI Surgery discussion HPI Details Patient is a 74-year-old female being evaluated today via telephone only. Today's discussion was over the phone with her son whom had some concerns about Daniella getting a lumpectomy in [place] due to a large tumor in her right breast. We did discuss that her chronic disease like diabetes and hypertension are stable and has a low risk for postop complications at this time. [facility] Medical History (Updated 10/29/24 @ 16:43 by Prabhjot Gold PA-C) Cough Axillary lymphadenopathy Diabetes Hypertension Surgical History No pertinent past surgical history Family History Father No problems noted. Mother Cervical cancer Family/Other Mental health disorder Social History Household Members: Children Housing: House Alcohol intake: never Patient Tobacco Use Status: Never used Tobacco e-Cigarette/Vaping Use: Never Used Second Hand Smoke Exposure: No service: No Current occupational status: retired Current occupation: right handed Cognitive needs: No Hearing needs: No Vision needs: Yes Female Reproductive History Menstrual Age of Menarche: 13 Questionnaire Thrive Questionnaire Date Thrive assessed: 03/10/25 SINTIA-7 AMB Questionnaire SINTIA-7 Date SINTIA - 7 assessed: 03/10/25 Source: Developed by Drs. Bernardo Murphy, Agatha Estevez, Leo Linares and colleagues, with an educational hernandez from [employer]. Review of Systems Const Denies headache(s) Eyes Denies loss of vision ENT Denies vertigo, Denies dizziness, Denies headache(s) and Denies sore throat Card Denies chest pain, Denies leg edema and Denies lightheadedness Resp Denies cough, Denies hemoptysis and Denies wheezing GI Denies abdominal pain, Denies melena, Denies constipation, Denies diarrhea and Denies vomiting Denies urinary frequency, Denies dysuria and Denies urinary urgency Musc Denies arthralgias, Denies joint swelling, Denies numbness and Denies tingling Neuro Denies behavioral changes, Denies vertigo, Denies dizziness, Denies headache(s), Denies loss of vision, Denies memory loss, Denies numbness and Denies tingling Psych Denies anxiety, Denies behavioral changes, Denies depression, Denies memory loss and Denies panic attacks Farhat/Lymph Denies easy bleeding and Denies easy bruising Aller/Immun Denies wheezing Physical exam (Primary Care) Tobacco/Smoking Status: Tobacco use Status Tobacco use date assessed 03/10/25 03/11/25 15:04 Patient Tobacco Use Status Never used Tobacco 03/11/25 15:04 e-Cigarette/Vaping Use Never Used 03/11/25 15:04 Thrive Assessment: Date of Thrive Assessment Date Thrive assessed 03/10/25 03/11/25 15:04 Telehealth Telehealth Telehealth Platform: Telephone Location of provider rendering services: practice address Location of patient: address on file Patient Identification confirmed using: Name, : Yes Telehealth method: voice only Patient verbally consented to treatment: Yes Patient verbally consented to billing insurance company: Yes Patient informed of any privacy concerns related to visit: Yes Minutes spent on Phone/Video with Pt.: 11 Coding Level of Care Code Tele Est Pt Level 3 (62596) Diagnoses 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, unspecified estrogen receptor status C50.611 Breast location: axillary tail of breast Estrogen receptor status: unspecified Patient sex: female Laterality: right Assessment & Plan Assessment & Plan (1) Breast cancer: Code(s): C50.919 - Malignant neoplasm of unspecified site of unspecified female breast Category: Medical Qualifiers: Breast location: axillary tail of breast Estrogen receptor status: unspecified Patient sex: female Laterality: right Qualified Code(s): C50.611 - 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 She will be doing this mastectomy in [place] this month.. She continues to have lymphedema over right upper extremity.
--- OUTSIDE RECORDS SUMMARY | 2025-03-11 16:23 | XMS_ITS | Clinical Summary ---
Author Organization [address] [facility] Address [address] [place] [address] Phone Care Team Providers Care Teacher Vocal Name Role Phone Prabhjot Gold Primary Care [...] mmol/L LAB CHEMISTRY METHOD 09/23/2024 2:06 PM [facility] Potassium 3.4(L) 3.5 - 5.5 mmol/L LAB CHEMISTRY METHOD 09/23/2024 2:06 PM [facility] Chloride 106 96 - 110 mmol/L LAB CHEMISTRY METHOD 09/23/2024 2:06 PM [facility] CO2 26 21 - 32 mmol/L LAB CHEMISTRY METHOD 09/23/2024 2:06 PM [facility] Anion Gap 7 3 - 11 LAB CHEMISTRY METHOD 09/23/2024 2:06 PM [facility] Glucose 139(H) 70 - 100 mg/dL LAB CHEMISTRY METHOD 09/23/2024 2:06 PM [facility] BUN 7 5 - 25 mg/dL LAB CHEMISTRY METHOD 09/23/2024 2:06 PM [facility] Creatinine 0.87 0.50 - 1.10 mg/dL LAB CHEMISTRY METHOD 09/23/2024 2:06 PM [facility] eGFR 69 >=60 mL/min/1. 73m2 LAB CHEMISTRY METHOD 09/23/2024 2:06 PM [facility] Comment:Calculation based on the Chronic Kidney Disease Epidemiology Collaboration (CKD-EPI) equation refit without adjustment for race. BUN/Creatinine Ratio 8.0 LAB CHEMISTRY METHOD 09/23/2024 2:06 PM [facility] Calcium 9.3 8.5 - 10.5 mg/dL LAB CHEMISTRY METHOD 09/23/2024 2:06 PM [facility] Blood Venous blood specimen / Unknown Venipuncture / Unknown 09/23/2024 1:32 PM EST 09/23/2024 1:45 PM EST Ned Horton MD LAB BLOOD ORDERABLES Final Resu lt [facility] HOSPITAL LAB [address] [place] [address], * (ABNORMAL) Lipid panel (09/21/2019) LDL/HDL Ratio [...] AM EDT Narrative 04/28/2019 2:10 PM EDT [facility] Diagnostic Imaging Department [address], [place] [id number] Patient: HERNANDEZDANIELLA D.O.B./Age/Sex: 1950 - 68 - F Unit#: [id number] Location/Status: SPDIMAM/REG CLI Mnemonic/Ordering Site: DIGSC/SPMAM Ordering Physician: FRANCISCA REVELES MD [facility] Screening Digital - 04/28/19 [...] MLO projection. Computer aided detection with the Nextiva 7.2-H was employed. TISSUE DENSITY: c. The [...] Routine screening mammogram BILATERAL in 1 year. [address]666, 49313 3342F, 7025F Dictating Physician: ALAINA DUMONT MD Electronically Signed by: ALAINA DUMONT MD Dic Date/Time: 04/28/19 1409 Sign date/Time: 04/28/19 1410 Procedure Note Alaina Dumont - 09/12/2022 [facility] Diagnostic Imaging Department [address] [place], [place] [id number] Patient: DANIELLA HERNANDEZ/Age/Sex: 1950 - 68 - F Unit#: [id number] Location/Status: [facility]/REG CLI Mnemonic/Ordering Site: [facility] Ordering Physician: FRANCISCA REVELES MD [facility] Screening Digital - 04/28/19 - 1035 EXAM: [facility] Screening Digital EXAM DATE AND TIME: 04/28/2019 10:36 AM HISTORY: Screening. Excisional biopsy of the right breast in [id number], pathology benign. Maternal cousin had breast carcinoma. COMPARISON: 04/25/18, 05/02/16, 03/15/14, 02/14/11 TECHNIQUE: CC and MLO views of both breasts were obtained using fullfield digital mammography. Bilateral digital breast tomosynthesis was performedin the MLO projection. Computer aided detection with the Nextiva 7.2-[place] employed. TISSUE DENSITY: c. The breasts are [...] Routine screening mammogram BILATERAL in 1 year. 45916, 34474 3342F, 7025F Dictating Physician: ALAINA UDMONT MD Electronically Signed by: ALAINA DUMONT MD Dic Date/Time: 04/28/19 1409 Sign date/Time: 04/28/19 1410 Francisca Reveles MD IMG BI PROCEDURES Final Result from Last 3 Months or Most Recently Relevant to Health Maintenance Insurance [employer] Care Teams Teacher Vocal Relationship Specialty Start Date End Date Prabhjot Gold PA PCP - General 11/14/23
== END 2025-03-11 16:05 | disposition home or self-care (01) ==
PROVIDERS: PCP Physician Assistant; Visit Provider Physician Assistant
DX: C50.611 Malignant neoplasm of 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 (principal)

== ENCOUNTER → 2025-03-11 15:03 | Outpatient (BNVA) | payer MEDICARE, SELFPAY | PROVIDERS: PCP Physician Assistant; Visit Provider Physician Assistant | DX: Z13.89 Encounter for screening for other disorder (principal) ==

== ENCOUNTER 2025-06-16 11:01 | Outpatient (AMB) | payer MEDICARE, SELFPAY ==
--- OUTSIDE RECORDS SUMMARY | 2025-06-12 09:00 | XMS_ITS | Encounter Summary ---
Author Organization [facility] Address [address] [place] [address] Care Team Providers Care Events Director Name Role Phone Unavailable Primary Care Provider Unavailabl e Reason for Visit * Reason Comments Dental Hygiene/ Preventive RISK MANAGEMENT MANAGER : Wants to EXT broken teeth on the top and seeks for a replacement options. NO dental pain . Encounter Details Date Type Department Care Team (Late st Contact Info) Description 06/12/2025 9:00 AM EDT Office Visit [facility] [address] [place] [address] Mansi Israel [address] [place] [address] Social History Tobacco Use Types Packs/Day Years Used Date Smoking Tobacco: Never Assessed Comments Unknown Sex and Gender Information Value Date Recorded Sex Assigned at Not on file Legal Sex Female 11:25 AM PST Gender Identity Not on file Sexual Orientation Not on file documented as of this encounter Last Filed Vital Signs Vital Sign Reading Time Taken Comments Blood Pressure 111/65 06/12/2025 9:21 AM EDT Pulse 93 06/12/2025 9:21 AM EDT Temperature - - Respiratory Rate - - Oxygen Saturation - - Inhaled Oxygen Concentration - - Weight - - Height - - Body Mass Index - - documented in this encounter Progress Notes * Mansi Israel - 06/12/2025 1:52 PM EDT COMp Exam +Pano +Prophy Subjective Daniella Sims, 74 year old female, presents alone for prophy. Parachute Packer: No Chief Complaint Patient presents with Dental Hygiene/ Preventive RISK MANAGEMENT MANAGER : Wants to EXT broken teeth on the top and seeks for a replacement options. NO dental pain . Objective RMHx: Yes. Reviewed with pt: Diabetes and High cholesterol . Her right hand is swelling after chemotherapy tx last year. Medication: metformin and Crestor No heart issues as pt informed The patient was informed that she is cancer-free and that her health is stable. She states that shewas diagnosed with breast cancer. She underwent chemotherapy last year and had surgery to remove her right breast in March of this year. Dr Gracia rev medical HX with pt - Dr Gracia sts no contraindication to dental tx today. Dr gave a consent to do X-ray, exam, prophy. Patient is aware of the treatment . Pt consents to proceed. Vitals: Vitals: 06/12/25 0921 BP: 111/65 Pulse: 93 BP Site: Right Wrist BP Position: Sitting BP Cuff Size: Regular Adult Assessment EOE/IOE/Oral Cancer Screen: WNL Oral Hygiene: Good Home Care: Toothbrush 2 x per day, Floss 0 x per day Fluoride exposure: toothpaste Plaque: Generalized Slight Calculus: None Gingival Description: wnl Inflammation: None Recession: Localized Slight- #18 Bone Loss: Generalized Slight Staining: Localized Slight Periodontal Screening Full Perio Charting completed: Yes Dx: K08.3 Retained tooth root (primary encounter diagnosis) K02.9 Caries of enamel (incipient) K03.0 Excessive attrition of teeth DH Dx Details: Pano taken Dr Gracia exam 1_ root tip #6,8,9,11,12. Remaining tooth #4. Plan to EXT all upper remaining teeth and retained roots. 2) Watch #18 O, #20BV 3) Plan for upper complete denture and lower partial denture Plan 1) EXT 2) Denture 3) Recall Informed Consent/PARQ (Procedure, Alternatives, Risks, Questions): Patient confirms informed consent using PARQ. Dental procedures in this visit D9450 - CASE PRESENTATION SUBS DTL & EXTENSIVE TX PLN (Completed) Service provider: Mansi Israel Billing provider: Duc Melvin DMD [id number] - ORAL CANCER SCREENING (Completed) Service provider: Mansi Israel Billing provider: Duc Melvin DMD D1330 - ORAL HYGIENE INSTRUCTIONS (Completed) Service provider: Mansi Israel Billing provider: Duc Melvin DMD D1310 - NUTRITIONAL COUNSELING CONTROL OF DENTAL DISEASE (Completed) Service provider: Mansi Israel Billing provider: Duc Melvin DMD D0603 - CARIES RISK ASSESSMENT & DOC FINDING HIGH RISK (Completed) Service provider: Mansi Israel Billing provider: Duc Melvin DMD D0150 - COMP ORAL EVALUATION - NEW/ESTABLISHED PATIENT (Completed) Service provider: Mansi Israel Billing provider: Duc Melvin DMD D0330 - PANORAMIC RADIOGRAPHIC IMAGE (Completed) Service provider: Mansi Israel Billing provider: Duc Melvin DMD D1110 - PROPHYLAXIS - ADULT (Completed) Service provider: Mansi Israel Billing provider: Duc Melvin DMD D9993 - DENTAL CASE MANAGEMENT - MOTIVATIONAL INTV (Completed) Service provider: Mansi Israel Billing provider: Duc Melvin DMD Prophy completed with hand scaling, coronal polishing, and floss. Pt handled tx very well. Left satisfied. OHI & Nutrition counseling provided, discussed: Proper brushing technique, Proper flossing technique Post-Op Information Given: verbal Behavior: Compliant NV: EXT remaining upper teeth and retained roots. Medical clearance given to consult with Pt's PCP before dental EXT . Mansi Israel [facility]/DR Colt Gracia documented in this encounter Miscellaneous Notes * Patient Instructions - Mansi Israel - 06/12/2025 10:01 AM EDT If you are not able to keep your appointment please call 24-48 hours before your appointment to cancel or reschedule. documented in this encounter Plan of Treatment Scheduled Orders Name Type Priority Associated Diagnoses Order Schedule 6 6 EXTRACTION ERU TOOTH RQR REMV BONE &/SECTN TOOTH Dental Procedures Routine 1 Occurrences starting 06/12/2025 8 8 EXTRACTION ERU TOOTH RQR REMV BONE &/SECTN TOOTH Dental Procedures Routine 1 Occurrences starting 06/12/2025 9 9 EXTRACTION ERU TOOTH RQR REMV BONE &/SECTN TOOTH Dental Procedures Routine 1 Occurrences starting 06/12/2025 11 11 EXTRACTION ERU TOOTH RQR REMV BONE &/SECTN TOOTH Dental Procedures Routine 1 Occurrenc es starting 06/12/2025 12 12 EXTRACTION ERU TOOTH RQR REMV BONE &/SECTN TOOTH Dental Procedures Routine 1 Occurrenc es starting 06/12/2025 4 4 EXTRACTION ERU TOOTH RQR REMV BONE &/SECTN TOOTH Dental Procedures Routine 1 Occurrences starting 06/12/2025 Max Max COMPLETE DENTURE - MAXILLARY Dental Procedures Routine 1 Occurren hira starting 06/12/2025 30,31,21,19 30,31,21,19 MANDIBULAR PARTIAL DENTURE - RESIN BASE Dental Procedures Routine 1 Occurrences starting 06/12/2025 documented as of this encounter Procedures Procedure Name Priority Date/Time Associated Diagnosis Comments ORAL CANCER SCREENING Routine 06/12/2025 9:00 AM EDT Retained tooth root Caries of enamel (incipient) Excessive attrition of teeth DENTAL CASE MANAGEMENT - MOTIVATIONAL INTV Routine 06/12/2025 9:00 AM EDT Retained tooth root Caries of enamel (incipient) Excessive attrition of teeth CARIES RISK ASSESSMENT & DOC FINDING HIGH RISK Routine 06/12/2025 9:00 AM EDT Retained tooth root Caries of enamel (incipient) Excessive attrition of teeth CASE PRESENTATION SUBS DTL & EXTENSIVE TX PLN Routine 06/12/2025 9:00 AM EDT Retained tooth root Caries of enamel (incipient) Excessive attrition of teeth ORAL HYGIENE INSTRUCTIONS Routine 06/12/2025 9:00 AM EDT Retained tooth root Caries of enamel (incipient) Excessive attrition of teeth NUTRITIONAL COUNSELING CONTROL OF DENTAL DISEASE Routine 06/12/2025 9:00 AM EDT Retained tooth root Caries of enamel (incipient) Excessive attrition of teeth PROPHYLAXIS - ADULT Routine 06/12/2025 9 :00 AM EDT Retained tooth root Caries of enamel (incipient) Excessive attrition of teeth PANORAMIC RADIOGRAPHIC IMAGE Routine 06/12/2025 9:00 AM EDT Retained tooth root Caries of enamel (incipient) Excessive attrition of teeth COMP ORAL EVALUATION - NEW/ESTABLISHED PATIENT Routine 06/12/2025 9:00 AM EDT Retained tooth root Caries of enamel (incipient) Excessive attrition of teeth documented in this encounter Visit Diagnoses Diagnosis Retained tooth root- Primary Retained dental root Caries of enamel (incipient) Dental caries limited to enamel Excessive attrition of teeth Excessive attrition of teeth, unspecified documented in this encounter
[2025-06-16 11:15] VITALS: BP 118/80; PULSE 86; O2SAT 98; BMI 23.7
--- NOTE | 2025-06-16 11:15 | A.OFFPC_ITS ---
Vital Signs 06/16/25 11:15 Height 5 ft 4 in Weight 138 lb 4 oz BMI 23.7 BP 118/80 Blood Pressure Location Lt brachial Position Sitting Pulse 86 Pulse Source Pulse Oximeter Pulse Oximetry (%) 98 Oxygen Delivery Method Room Air Intake Visit Reasons: Follow-up type 2 diabetes and hypertension Educational Consultant Required: No Accompanied by: Self / Same As Patient Allergies No Known Allergies Allergy (Verified 06/16/25 11:47) Medication List - Last Reconciled 06/16/25 by Prabhjot Gold PA-C blood pressure monitor (Blood Pressure Kit) As directed blood sugar diagnostic (FreeStyle Lite Strips) test one per day/ PRN blood-glucose meter (FreeStyle Lite Meter kit) Test once a day as needed diclofenac sodium 1% 4 grams topical BID fluticasone propionate 50 mcg/actuation (Flonase Allergy Relief) 1 spray intranasal BID 30 days gabapentin 600 mg PO guaifenesin ER (Mucinex) 600 mg PO BID 7 days lancets (FreeStyle Lancets) test once a day as needed magnesium 250 mg PO DAILY metformin ER 500 mg PO BID 90 days ondansetron 8 mg PO Q8H polyethylene glycol 3350 (Miralax) 17 grams PO DAILY potassium chloride ER (K-Tab) 20 mEq PO DAILY rosuvastatin 40 mg PO DAILY sennosides (Senokot) 8.6 mg PO BID Tobacco use date assessed: 06/16/25 Fall risk assessment: No Falls in past year Last assessed Fall Risk: 06/16/25 Dental Screening Dental Screen Date: 06/16/25 Did you have a dental visit in the last 12 months?: Yes Did you have a dental problem in the last 6 months where you did not have access to dental care?: No Was dental information given to patient?: Patient has dentist HPI Follow-up type 2 diabetes and hypertension HPI Details Patient is a 74-year-old female here today for a follow-up visit Patient has a past medical history significant for type 2 diabetes, hyperlipidemia, hypertension. Breast cancer: Interval history--> Patient did have a swollen right arm and axillary/cervical lymphadenopathy, was referred to Oncology and underwent lymph node biopsy of the right supraclavicular area on 04/23/2023, FNA cytology was read as positive for?malignant cells with necrosis.? She started neoadjuvant chemotherapy/immunotherapy with carbo/Taxol weekly with pembrolizumab to be followed by Adriamycin/Cytoxan with pembrolizumab. She started treatment on 05/16/2023. PET-CT performed 12/24/2023 showed FDG avid right breast nodule as well as multiple FDG avid mediastinal, right hilar and bilateral proximal peribronchial lymph node strongly suspicious for metastasis. Patient underwent a right total mastectomy in [place] and doing well. .. Type 2 diabetes:? . She continues with metformin 500 b.i.d.. Most recent A1c is 6.5 Her blood sugars have been better controlled. Will continue her current antihyperglycemic regime. .. Hyperlipidemia:? Most recent lipid panel has stabilize after starting statin therapy. .. HTN:? Continues manage blood pressure with lifestyle modifications. Was previously on valsartan and metoprolol.? Today's blood pressure in office acceptable and has not been taking blood pressure medication.? Laboratory Tests 11/07/23 02/07/24 07/17/24 11:24 10:30 10:14 RBC 4.58 4.17 L Hgb 12.2 11.5 L Hct 35.6 L Plt Count 441 H D Random Glucose 181 H 151 H 177 H Hgb A1c (Clinic) 11/20/24 11/27/24 03/10/25 10:40 10:30 11:21 RBC Hgb 10.8 L 11.4 L Hct 33.1 L Plt Count Random Glucose Hgb A1c (Clinic) 6.2 H 06/16/25 11:13 RBC Hgb Hct Plt Count Random Glucose Hgb A1c (Clinic) 6.5 H [facility] Medical History (Updated 10/29/24 @ 16:43 by Prabhjot Gold PA-C) Cough Axillary lymphadenopathy Diabetes Hypertension Surgical History No pertinent past surgical history Family History Father No problems noted. Mother Cervical cancer Family/Other Mental health disorder Social History Household Members: Children Housing: House Alcohol intake: never Patient Tobacco Use Status: Never used Tobacco e-Cigarette/Vaping Use: Never Used Second Hand Smoke Exposure: No service: No Current occupational status: retired Current occupation: right handed Cognitive needs: No Hearing needs: No Vision needs: Yes Female Reproductive History Menstrual Age of Menarche: 13 Questionnaire Thrive Questionnaire Date Thrive assessed: 03/10/25 I am a: Patient What is your living situation today?: I have a steady place to live Within the past 12 months, did the food you bought not last and you didn't have the money to get more?: I choose not to answer this question Within the past 12 months, did you worry whether your food would run out before you got money to buy more?: I choose not to answer this question Do you have trouble paying for medicines?: Yes Do you have trouble getting transportation to medical appointments?: No Do you have trouble paying your heating and electricity bill?: Yes Do you have trouble taking care of your child, family member or friend?: No Do you have trouble with day-to-day activities such as bathing, preparing meals, shopping, managing finances, etc.?: No Are you currently unemployed and looking for a job?: No Are you interested in more education?: No Please select the resources that you would like help with: None Currently or been in a relationship where the following occur: I choose not to answer THRIVE Score: 1 AUDIT C Alcohol Use Questionnaire (AUDIT-C) 1. How often do you have a drink containing alcohol?: Never 3. How often do you have six or more drinks on one occasion?: Never Total Score: 0 SINTIA-7 AMB Questionnaire SINTIA-7 Date SINTIA - 7 assessed: 03/10/25 Feeling afraid as if something awful might happen: 0 = Not at all Source: Developed by Drs. Bernardo Murphy, Agatha Estevez, Leo Linares and colleagues, with an educational hernandez from [employer]. Review of Systems Const Denies headache(s) Eyes Denies loss of vision ENT Denies vertigo, Denies dizziness, Denies headache(s) and Denies sore throat Card Denies chest pain, Denies leg edema and Denies lightheadedness Resp Denies cough, Denies hemoptysis and Denies wheezing GI Denies abdominal pain, Denies melena, Denies constipation, Denies diarrhea and Denies vomiting Denies urinary frequency, Denies dysuria and Denies urinary urgency Musc Denies arthralgias, Denies joint swelling, Denies numbness and Denies tingling Neuro Denies Abnormal speech present, Denies behavioral changes, Denies vertigo, Denies dizziness, Denies headache(s), Denies loss of vision, Denies memory loss, Denies numbness and Denies tingling Psych Denies anxiety, Denies behavioral changes, Denies depression, Denies memory loss and Denies panic attacks Farhat/Lymph Denies easy bleeding and Denies easy bruising Aller/Immun Denies wheezing Physical exam (Primary Care) Vital Signs: Last Vital Signs Pulse 86 06/16/25 11:15 BP 118/80 06/16/25 11:15 Pulse Ox 98 06/16/25 11:15 Oxygen Delivery Method Room Air 06/16/25 11:15 BMI result Body Mass Index 23.7 Tobacco/Smoking Status: Tobacco use Status Tobacco use date assessed 06/16/25 06/16/25 11:18 Patient Tobacco Use Status Never used Tobacco 06/16/25 11:18 e-Cigarette/Vaping Use Never Used 06/16/25 11:18 Thrive Assessment: Date of Thrive Assessment Date Thrive assessed 03/10/25 06/16/25 11:18 Currently or been in a relationship where the following occur: I choose not to answer Const General: healthy appearing, no acute distress, alert and awake Nutritional Appearance: well nourished Orientation/consciousness: oriented to person, oriented to place and oriented to time HENMT Ears: TM's normal bilaterally General nose exam: Normal nasal mucous membranes and turbinates present Eyes Conjunctivae: conjunctivae normal Sclerae: sclerae normal Pupils: Equal, round and reactive pupils present Neck Neck: Yes no lymphadenopathy and Yes no JVD Thyroid: Thyroid normal Carotids: no bruits Resp Effort & Inspection: normal respiratory effort and not tachypneic Auscultation: no crackles, no rales, no rhonchi and no wheezes Cardio Rate: regular rate Rhythm: regular rhythm Heart sounds: no murmurs and normal S1 and S2 GI Palpation (GI): Soft to palpation, nontender, no hepatomegaly and no splenomegaly Auscultation: normal bowel sounds Skin General skin exam: no rashes or lesions noted and dry skin Neuro General: oriented to person, oriented to place and oriented to time Cranial nerves: Yes Equal, round and reactive pupils present Speech: No Abnormal speech present Gait exam (Neuro): Normal gait present Motor exam (neuro): no tremor noted Extrem Right upper extremity: full ROM Left upper extremity: full ROM Right lower extremity: full ROM; no edema Left lower extremity: full ROM; no edema Psych Mental Status: mental status grossly normal Speech and movement: Normal speech and movement present Affect: normal affect Attitude: cooperative Thought process: Normal thought process present Results AMB Hemoglobin A1c AMB Hemoglobin A1c 6.5 % Last Edit by TRINITY Tate on 06/16/25 11 :29 Immunizations pneumoc 20-an conj-dip cr(PF) 0.5 mL IM syringe Performing Provider: Prabhjot Gold PA-C [facility] Administered by: TRINITY Tate on 06/16/25 12:02 Dose Route Admin Location Dispensed Lot Number Expiration Date [facility] Digital Advertising Specialist 0.5 mL IM Left Deltoid 0.5 mL [id number] 05/24/26 [employer] Total Dispensed Waste 0.5 mL 0 % VIS Given Date VIS Provided VIS Publication Date 06/16/25 Single Vaccine 25 Eligibility Eligibility Date Funding Source Not [facility] Eligible 06/16/25 Private Results Reviewed Results Reviewed: Laboratory Last Values Hgb A1c (Clinic) 6.5 % (4.0-6.0) H 06/16/25 11:13 Coding Level of Care Code Est Pt Level 4 (45422) Diagnoses H/O total mastectomy of right breast Z90.11 Type 2 diabetes mellitus with hyperglycemia, without long-term current use of in sulin E11.65 Diabetes mellitus complication status: with hyperglycemia Diabetes mellitus intermediate frame tender insulin use: without penitentiary use Mixed hyperlipidemia E78.2 Hyperlipidemia type: mixed hyperlipidemia Primary hypertension I10 Hypertension type: primary hypertension 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, unspecified estrogen receptor status C50.611 Breast location: axillary tail of breast Estrogen receptor status: unspecified Laterality: right Patient sex: female Assessment & Plan Assessment & Plan (1) H/O total mastectomy of right breast: Code(s): Z90.11 - Acquired absence of right breast and nipple Category: Surgical Plan: Patient recently underwent a right total mastectomy in March 2025, currently doing well. (2) DMII (diabetes mellitus, type 2): Code(s): E11.9 - Type 2 diabetes mellitus without complications Category: Medical Qualifiers: Diabetes mellitus complication status: with hyperglycemia Diabetes mellitus penitentiary insulin use: without intermediate frame tender use Qualified Code(s): E11.65 - Type 2 diabetes mellitus with hyperglycemia Plan: Patient's type 2 diabetes now well controlled . Most recent A1c is 6.5. She continues with metformin and has been working on dietary modifications. She would like to continue her current dose of metformin at this time. Goal A1c is to be below 7.0 (3) HLD (hyperlipidemia): Code(s): E78.5 - Hyperlipidemia, unspecified Category: Medical Qualifiers: Hyperlipidemia type: mixed hyperlipidemia Qualified Code(s): E78.2 - Mixed hyperlipidemia Plan: Patient continues with rosuvastatin with outside effect. Advised to get fasting labs done to evaluate her LDL. Goal LDL to be below 100 (4) HTN (hypertension): Code(s): I10 - Essential (primary) hypertension Category: Medical Qualifiers: Hypertension type: primary hypertension Qualified Code(s): I10 - Essential (primary) hypertension Plan: Patient's blood pressure acceptable today in office. Goal blood pressures to be below 140/90 Will hold off on blood pressure medication for now. (5) Breast cancer: Code(s): C50.919 - Malignant neoplasm of unspecified site of unspecified female breast Category: Medical Qualifiers: Breast location: axillary tail of breast Estrogen receptor status: unspecified Laterality: right Patient sex: female Qualified Code(s): C50.611 - 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 . She continues to have lymphedema over right upper extremity. Patient underwent a total right mastectomy Orders: Orders Lipid Panel Today E78.2 - Mixed hyperlipidemia Complete Blood Count no Diff Today E11.65 - Type 2 diabetes mellitus with hyperglycemia Microalbumin, Random (w Creat) Today E11.65 - Type 2 diabetes mellitus with hyperglycemia AMB Hemoglobin A1c Today Z13.9 - Encounter for screening, unspecified Comprehensive [place]. Panel Fast Today E11.65 - Type 2 diabetes mellitus with hyperglycemia Pneumococcal 20 Immunization Today E11.65 - Type 2 diabetes mellitus with hyperglycemia, Z23 - Encounter for immunization
--- OUTSIDE RECORDS SUMMARY | 2025-06-16 14:13 | XMS_ITS | Clinical Summary ---
Author Organization [address] [facility] Address [address] [place] [address] Phone Care Team Providers Care Regulatory Coordinator Name Role Phone Prabhjot Gold Primary [...] (2 of 2 - PPSV23) 08/18/2019 08/18/2018 Falls Risk Assessment 08/26/2022 Hepatitis C Screening 08/26/2022 Medicare Annual Wellness Visit 08/26/2022 Osteoporosis Screening (Bone Density Screening) 08/26/2022 Social Influencers of Health Screening 08/26/2022 RSV Immunization Adult Patients (1 - 1-dose 75+ series) 2023 Cholesterol Screening (Lipid Panel) 09/21/2024 09/21/2019 Depression Screening 09/23/2024 COVID-19 Vaccine ( season) 2025 10/23/2022, 12/27/2020, 12/06/2020 Influenza Vaccine (#1) 2025 4, 08/02/2022, 07/23/2020, Additional history exists Hypertension/CHF/CAD Annual BMP Blood Test 09/23/2025 09/23/2024, 09/21/2019 Breast Cancer Screening Discontinued 04/28/2019, 04/25 HIB Vaccines Aged Out No longer eligi [...] mmol/L LAB CHEMISTRY METHOD 09/23/2024 2:06 PM [facility] Potassium 3.4(L) 3.5 - 5.5 mmol/L LAB CHEMISTRY METHOD 09/23/2024 2:06 PM [facility] Chloride 106 96 - 110 mmol/L LAB CHEMISTRY METHOD 09/23/2024 2:06 PM [facility] CO2 26 21 - 32 mmol/L LAB CHEMISTRY METHOD 09/23/2024 2:06 PM [facility] Anion Gap 7 3 - 11 LAB CHEMISTRY METHOD 09/23/2024 2:06 PM [facility] Glucose 139(H) 70 - 100 mg/dL LAB CHEMISTRY METHOD 09/23/2024 2:06 PM [facility] BUN 7 5 - 25 mg/dL LAB CHEMISTRY METHOD 09/23/2024 2:06 PM [facility] Creatinine 0.87 0.50 - 1.10 mg/dL LAB CHEMISTRY METHOD 09/23/2024 2:06 PM [facility] eGFR 69 >=60 mL/min/1. 73m2 LAB CHEMISTRY METHOD 09/23/2024 2:06 PM [facility] Comment:Calculation based on the Chronic Kidney Disease Epidemiology Collaboration (CKD-EPI) equation refit without adjustment for race. BUN/Creatinine Ratio 8.0 LAB CHEMISTRY METHOD 09/23/2024 2:06 PM [facility] Calcium 9.3 8.5 - 10.5 mg/dL LAB CHEMISTRY METHOD 09/23/2024 2:06 PM [facility] Blood Venous blood specimen / Unknown Venipuncture / Unknown 09/23/2024 1:32 PM EST 09/23/2024 1:45 PM EST Ned Horton MD LAB BLOOD ORDERABLES Final Resu lt [facility] [address] [place] [address], * (ABNORMAL) Lipid panel (09/21/2019) LDL/HDL Ratio 4 0 - 4 Triglycerides 216(A) 0 - 150 mg/dL Cholesterol 201(A) 0 - 200 mg/dL HDL 49 >=40 mg/dL LDL Cholesterol 109(A) 0 - 100 mg/dL Blood Venous blood specimen / Unknown Historical Provider LAB BLOOD ORDERABLES Graciela dhaliwal Result * STALIN SCREENING DIGITAL (04/28/2019 2:10 PM EDT) Anatomical Region Laterality Modality Mammography 04/28/2019 9:56 AM EDT Narrative 04/28/2019 2:10 PM EDT [facility] Diagnostic Imaging Department [address] [place] [address] Patient: HERNANDEZDANIELLA D.O.B./Age/Sex: 1950 - 68 - F Unit#: [id number] Location/Status: SPDIMAM/REG CLI [facility] Order[facility] Physician: FRANCISCA REVELES MD Stalin Screening [...] MLO projection. Computer aided detection with the [employer]2-H was employed. TISSUE DENSITY: c. The breasts [...] Routine screening mammogram BILATERAL in 1 year. 54018, 13552 3342F, 7025F Dictating Physician: ALAINA DUMONT MD Electronically Signed by: ALAINA DUMONT MD Dic Date/Time: 04/28/19 1409 Sign date/Time: 04/28/19 1410 Procedure Note Alaina Dumont - 09/12/2022 [facility] Diagnostic Imaging Department [address] [place] [id number] Patient: DANIELLA HERNANDEZ Maria De Jesus Mooney/Age/Sex: 1950 - 68 - F Unit#: [id number] Location/Status: [facility]/REG I Mnemonic/Ordering Site: [facility] Ordering Physician: FRANCISCA REVELES MD [facility] Screening Digital - 04/28/19 - 1035 EXAM: [facility] Screening Digital EXAM DATE AND TIME: 04/28/2019 10:36 AM HISTORY: Screening. Excisional biopsy of the right breast in [id number], pathology benign. Maternal cousin had breast carcinoma. COMPARISON: 04/25/18, 05/02/16, 03/15/14, 02/14/11 TECHNIQUE: CC and MLO views of both breasts were obtained using fullfield digital mammography. Bilateral digital breast tomosynthesis was performedin the MLO projection. Computer aided detection with the [employer] employed. TISSUE DENSITY: c. The breasts are [...] Routine screening mammogram BILATERAL in 1 year. 34914, 70042 3342F, 7025F Dictating Physician: ALAINA DUMONT MD Electronically Signed by: ALAINA DUMONT MD Dic Date/Time: 04/28/19 1409 Sign date/Time: 04/28/19 1410 Francisca Reveles MD IMG BI PROCEDURES Final Result from Last 3 Months or Most Recently Relevant to Health Maintenance Insurance [employer] MEDICARE Care Teams Regulatory Coordinator Relationship Specialty Start Date End Date Prabhjot Gold PA PCP - General 11/14/23
--- OUTSIDE RECORDS SUMMARY | 2025-06-16 14:13 | XMS_ITS | Clinical Summary ---
Author Organization [facility] Address [address] [place] [address] Care Team Providers Care Supervisor [employer] Name Role Phone Unavailable Primary Care Provider Unavailabl e Source Comments PLEASE NOTE, if this patient is a minor, it may be UNLAWFUL to discuss sensitive information that is contained in these records (such as FAMILY PLANNING, MENTAL HEALTH or SUBSTANCE ABUSE) with the minor patient's parent or other person without the patient's specific authorization.[facility] Medications metFORMIN XR (GLUCOPHAGE-XR) 500 mg 24 hr tablet 500 MG ORALLY 2 TIMES A DAY FOR 90 DAYS 05/07/2025 Active rosuvastatin (CRESTOR) 40 mg tablet Take 40 mg by mouth once daily. Active Active Problems No known active problems Encounters Date Type Department Care Team Description 06/12/2025 9:00 AM EDT Office Visit [facility] [address] [place] [address] Mansi Israel from Last 3 Months Social History Tobacco Use Types Packs/Day Years Used Date Smoking Tobacco: Never Assessed Comments Unknown Sex and Gender Information Value Date Recorded Sex Assigned at Not on file Legal Sex Female 11:25 AM PST Gender Identity Not on file Sexual Orientation Not on file Last Filed Vital Signs Vital Sign Reading Time Taken Comments Blood Pressure 111/65 06/12/2025 9:21 AM EDT Pulse 93 06/12/2025 9:21 AM EDT Temperature - - Respiratory Rate - - Oxygen Saturation - - Inhaled Oxygen Concentration - - Weight - - Height - - Body Mass Index - - Plan of Treatment Health Maintenance Due Date Last Done Comments Dental Perio Charting 1950 Hepatitis C Screening 1950 Tobacco Screening 1950 Imm-DTaP/Tdap/Td (1 - Tdap) 1967 Imm-Zoster, Recombinant (1 of 2) 1998 Bone Density Screening 2013 Falls Prevention 2013 Imm-Pneumococcal 50+ (2 of 2 - PCV20 or PCV21) 08/18/2019 08/18/2018 Imm-RSV (adult) (1 - 1-dose 75+ series) 2023 Alcohol and Drug Screen 09/23/2024 Depression Annual Screen 09/23/2024 [id number] (2 - 2024- season) 2025 023 Imm-Influenza (#1) 2025 08/18/2018, 0 10/15/2017, 07/25/2015 Hypertension Screening (#1) 06/12/2026 Dental Examination 06/14/2026 06/12/2025 Dental Prophy 06/14/2026 06/12/2025 Dental FMX/Pano 06/14/2030 06/12/2025 Procedures Procedure Name Priority Date/Time Associated Diagnosis Comments DENTAL CASE MANAGEMENT - MOTIVATIONAL INTV Routine [...] enamel (incipient) Excessive attrition of teeth ORAL CANCER SCREENING Routine 06/12/2025 9:00 AM EDT Retained tooth root Caries of enamel (incipient) Excessive attrition of teeth CASE PRESENTATION SUBS DTL & EXTENSIVE TX PLN Routine 06/12/2025 9:00 AM EDT Retained tooth root Caries of enamel (incipient) Excessive attrition of teeth from Last 3 Months Insurance [facility] [id number]
--- OUTSIDE RECORDS SUMMARY | 2025-06-16 14:13 | XMS_ITS ---
Author Name [facility] Organization Unknown Care Team Organization Name Specialty Phone Email Start Date End Da te [facility] NULL Primary Care 07/31/2022 05/11/2024
== END 2025-06-16 12:28 | disposition home or self-care (01) ==
LOC: HO.HMCH 11:02
PROVIDERS: PCP Physician Assistant; Visit Provider Physician Assistant
DX: E11.65 Type 2 diabetes mellitus with hyperglycemia (principal); E78.2 Mixed hyperlipidemia; C50.611 Malignant neoplasm of 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; Z90.11 Acquired absence of right breast and nipple; I10 Essential (primary) hypertension; Z23 Encounter for immunization

== ENCOUNTER → 2025-06-16 11:01 | Outpatient (BNVA) | payer MEDICARE, SELFPAY | PROVIDERS: PCP Physician Assistant; Visit Provider Physician Assistant | DX: I10 Essential (primary) hypertension (principal); E11.65 Type 2 diabetes mellitus with hyperglycemia; E78.2 Mixed hyperlipidemia; C50.611 Malignant neoplasm of 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; Z23 Encounter for immunization; Z90.11 Acquired absence of right breast and nipple | CPT/HCPCS: 83036; 90471; 90677; 99212 ==